=== PATIENT | female | born 1930 | race Caucasian/White ===

== ENCOUNTER 2018-05-29 15:29 | Emergency (ER) | payer MEDICARE ==
[2018-05-29 17:40] LABS: #Basophils 0.1 thou/uL (0.0-0.2); #Eosinphils 0.1 thou/uL (0.0-0.7); #Lymphocytes 1.5 thou/uL (1.20-3.40); #Monocytes 0.6 thou/uL (0.11-0.59); %Basophils 0.7 % (0.0-1.0); %Eosinophils 1.9 % (0.0-10.0); %Lymphocytes 20.2 % (21.0-51.0); %Monocytes 7.7 % (0.0-10.0); %Neutrophils 69.5 % (42.0-75.0); Hemoglobin 13.1 g/dL (12.0-16.0); Mean Corpuscular HGB CONC 33.6 g/dL (32.0-36.0); Mean Corpuscular Hemoglobin 32.4 pg (27.0-31.0); Mean Corpuscular Volume 96.5 fL (78.0-98.0); Mean Platelet Volume 8.4 fL (7.4-10.4); Platelet Count 203 thou/uL (130-400); RBC Distribution Width 11.7 % (11.5-14.5); Red Blood Cell (RBC) Count 4.04 mill/uL (4.20-5.40); White Blood Cell (WBC) Count 7.3 thou/uL (4.8-10.8)
[2018-05-29 18:10] LABS: ALT (SGPT) 16 U/L (8-55); AST (SGOT) 24 U/L (5-34); Albumin 3.9 g/dL (3.4-4.8); Alkaline Phosphatase 62 U/L (40-150); BUN (Urea Nitrogen) 32 mg/dL (9.8-20.1); Bilirubin, Total 0.3 mg/dL (0.2-1.2); Calc. Creatinine Clearance 0 mL/min (70-130); Calcium 9.7 mg/dL (7.8-10.44); Carbon Dioxide 25 mmol/L (23-31); Estimated GFR-MDRD 52; Globulin 2.9 g/dL (2.4-3.5); Glucose 115 mg/dL (83-110); Protein, Total 6.8 g/dL (6.0-8.3)
[2018-05-29 18:19] LABS: Anion Gap 14 mmol/L (10-20); Chloride 105 mmol/L (98-107); Potassium 4.2 mmol/L (3.5-5.1); Sodium 139 mmol/L (136-145)
[2018-05-29 19:27] LABS: Bilirubin Small (Negative); Blood, Urine Moderate (Negative); Clarity CLOUDY (Clear); Glucose, Urine (Dipstick) Negative (Negative); Leukocyte Large (Negative); Nitrite Negative (Negative); Protein, Urine (Dipstick) Trace mg/dL (Neg-Trace); Specific Gravity, Urine 1.027 (1.002-1.036); pH, Urine 5.5 (5.0-9.0)
[2018-05-29 19:28] LABS: Bacteria/HPF 3+ HPF (None Seen); Squamous Epithelial 0-3 HPF (0-3)
[2018-05-29] MEDS ORDERED: Lidocaine 1% PF 5 ML VIAL ONE (19:28)
[2018-05-29] MEDS ORDERED: cefTRIAXone\\ROCEPHIN 1 GM VIAL ONE (19:28)
[2018-05-29 19:31] LABS: Pathc Cast-AUWi Flag 10.32 (0-2.49)
[2018-05-29 19:32] LABS: Hyaline Casts/LPF 4-6 HYALINE CAST LPF (0-3 Hyaline); Manual Microscopic Reviewed? No Path Casts Seen
== END 2018-05-29 20:26 | disposition home or self-care (01) ==
LOC: ERS 15:29
DX: N30.00 Acute cystitis without hematuria (principal); K21.9 Gastro-esophageal reflux disease without esophagitis; F03.90 Unspecified dementia, unspecified severity, without behavioral disturbance, psychotic disturbance, mood disturbance, and anxiety; E03.9 Hypothyroidism, unspecified; E78.5 Hyperlipidemia, unspecified
CPT/HCPCS: 36415; 51701; 80053; 81003; 81015; 85025; 87077; 87086; 87186; 93005; 96372; A4353; J0696; J2001

== ENCOUNTER 2018-06-11 12:20 | Inpatient (IN) | payer MEDICARE ==
[2018-06-11 14:36] LABS: #Basophils 0.1 thou/uL (0.0-0.2); #Eosinphils 0.2 thou/uL (0.0-0.7); #Lymphocytes 1.5 thou/uL (1.20-3.40); #Monocytes 0.5 thou/uL (0.11-0.59); #Neutrophils 3.4 thou/uL (1.40-6.50); %Basophils 1.1 % (0.0-1.0); %Eosinophils 4.3 % (0.0-10.0); %Lymphocytes 26.5 % (21.0-51.0); %Monocytes 8.8 % (0.0-10.0); %Neutrophils 59.4 % (42.0-75.0); Hemoglobin 12.6 g/dL (12.0-16.0); Mean Corpuscular HGB CONC 32.5 g/dL (32.0-36.0); Mean Corpuscular Hemoglobin 31.2 pg (27.0-31.0); Mean Corpuscular Volume 96.1 fL (78.0-98.0); Mean Platelet Volume 8.8 fL (7.4-10.4); Platelet Count 196 thou/uL (130-400); RBC Distribution Width 11.7 % (11.5-14.5); Red Blood Cell (RBC) Count 4.04 mill/uL (4.20-5.40); White Blood Cell (WBC) Count 5.7 thou/uL (4.8-10.8)
[2018-06-11 14:59] LABS: ALT (SGPT) 16 U/L (8-55); AST (SGOT) 26 U/L (5-34); Albumin 3.8 g/dL (3.4-4.8); Alkaline Phosphatase 61 U/L (40-150); Anion Gap 14 mmol/L (10-20); BUN (Urea Nitrogen) 22 mg/dL (9.8-20.1); Bilirubin, Total 0.3 mg/dL (0.2-1.2); Calc. Creatinine Clearance 0 mL/min (70-130); Calcium 9.4 mg/dL (7.8-10.44); Carbon Dioxide 24 mmol/L (23-31); Chloride 107 mmol/L (98-107); Estimated GFR-MDRD 60; Globulin 2.9 g/dL (2.4-3.5); Glucose 105 mg/dL (83-110); Potassium 4.3 mmol/L (3.5-5.1); Protein, Total 6.7 g/dL (6.0-8.3); Sodium 141 mmol/L (136-145)
--- NOTE | 2018-06-11 15:08 | RAD ---
CHEST 1 VIEW: INDICATION: Chest pain. COMPARISON: None. FINDINGS: There is COPD change. There is mild cardiomegaly. No pleural effusion or pneumothorax is evident. No acute osseous abnormality is evident. IMPRESSION: Chronic change as above. No definite acute abnormality. POS: [facility]
[2018-06-11 18:27] LABS: Troponin I 0.012 ng/mL (< 0.028)
[2018-06-11] MEDS ORDERED: Senokot S 8.6-50 MG TAB PO PRN (19:28)
[2018-06-11] MEDS ORDERED: Ondansetron ODT 4 MG TAB PO PRN (19:28)
[2018-06-11] MEDS ORDERED: Acetaminophen 325 MG TAB PO PRN (19:28)
[2018-06-11] MEDS ORDERED: Ondansetron PF 4 MG/2 ML Vial IVP PRN (19:28)
[2018-06-11] MEDS ORDERED: Acetaminophen 650 MG Suppository PR PRN (19:28)
[2018-06-11 20:55] LABS: Troponin I Less than 0.010 ng/mL (< 0.028)
[2018-06-11] MEDS ORDERED: Famotidine 20 MG TAB ONE (20:58)
[2018-06-11 21:24] VITALS: BMI 24.1
[2018-06-11 23:43] LABS: Troponin I Less than 0.010 ng/mL (< 0.028)
[2018-06-11] MEDS ORDERED: traZODone HCl 50 MG TAB PO SCH (23:45)
[2018-06-11] MEDS ORDERED: Gabapentin 300 MG CAP PO SCH (23:45)
[2018-06-11] MEDS ORDERED: Donepezil HCl 10 MG TAB PO SCH (23:45)
--- NOTE | 2018-06-12 01:12 | HP ---
PRIMARY CARE PHYSICIAN: Xena Pickard MD CHIEF COMPLAINT: Increasing weakness and falls with slow heart rate. HISTORY OF PRESENT ILLNESS: This is an 88-year-old white female with no cardiac history, just history of hyperlipidemia, who presents to the emergency room from her doctor's office for a low heart rate. The patient has reported some increased weakness especially in her legs over the last year and has had increasing falls, but specifically worsened over the last couple of months. Her daughter, who is in the room with her stated that she seems to be falling a lot more and then over the last 2 weeks, this got significantly worse. The patient was brought to the emergency room for some dysuria, increasing weakness, and smelly urine. On May 29, she was diagnosed with urinary tract infection with Klebsiella and treated with Levaquin. She had resolution of all her symptoms except for her weakness that has been persistent. The patient had another fall last night. She was trying to sit on the side of her bed and her legs gave out on her and she fell to the side. She says she usually tries to roll off to the side when she falls. She did not hit her head and has no injuries from this. When she went to her primary care doctor's office, they noted her heart rate in the 40s. She has had heart rate that has been low in the 60s previously per the primary care doctor, but has never gotten that low before, so she was sent to the emergency room. In the emergency room, she has been running anywhere between the low 40s to low 60s. Her EKG showed sinus bradycardia with sinus arrhythmia and complete right bundle branch block. The patient's other vital signs have been stable. PAST MEDICAL HISTORY: 1. Hyperlipidemia. 2. Hypothyroidism. 3. Gastroesophageal reflux disease. PAST SURGICAL HISTORY: 1. Hysterectomy. 2. Cataract surgery. 3. Surgery for detached retina. PSYCHIATRIC HISTORY: None. SOCIAL HISTORY: No tobacco, alcohol, or illicit drug use. The patient is a . She currently lives with her daughter, who is present in the room with her and is her power of community marketing manager. The patient does not have any personal history of dementia but due to a strong family history, at her request, started taking Aricept and Namenda in her 50s and has been taking them ever since. The patient has 6 children. FAMILY HISTORY: Virtually every one in her family has had Alzheimer's, except her. No significant cardiac disease in her family. ALLERGIES: NO KNOWN DRUG ALLERGIES. CURRENT MEDICATIONS: 1. Plavix 75 mg daily. She states this was given to her for prevention of problems in her brain. Denies any history of stroke, TIA, or peripheral vascular disease. 2. Venlafaxine 75 mg daily. 3. Protonix 40 mg daily. 4. Donepezil 20 mg each morning. 5. Gabapentin 600 mg each morning. 6. Simvastatin 10 mg daily. 7. Amantadine, unknown dose twice a day. 8. Levothyroxine 75 mcg daily. 9. Trazodone 75 mg at nighttime before bed. REVIEW OF SYSTEMS: CONSTITUTIONAL: No fevers. No chills. No weight changes. EYES: She has chronic poor vision, but no significant changes recently except that she has lost her glasses and had to use an older pair and so she is a little more blurry than normal. ENT: No congestion, drainage or sore throat. CARDIOVASCULAR: No chest pain. No palpitations or racing heart. PULMONARY: No coughing, wheezing or shortness of breath. GASTROINTESTINAL: No abdominal pain. No nausea or vomiting. No diarrhea. She does have some chronic constipation and has to take MiraLAX intermittently to keep it moving. GENITOURINARY: See HPI. No current dysuria or hematuria. MUSCULOSKELETAL: She has bad knees and wears knee braces regularly, and has had weakness in her bilateral legs, worsened over the last couple of months. Sometimes when she sits down, she is not able to stand back up from the toilet, though typically she is not able to do that and has increasingly frequent falls. SKIN: No rashes or lesions. NEUROLOGIC: No numbness, tingling, or focal weakness. PSYCHIATRIC: No depression or anxiety. PHYSICAL EXAMINATION: VITAL SIGNS: Blood pressure 119/65, pulse 52, respirations 15, temperature 98.6, O2 saturation 98% on room air. GENERAL: This is a well-developed elderly white female, in no acute distress. HEENT: Left pupil is 3 mm, round and reactive to light. Right pupil is about 5 mm, irregular and is not reactive to light. Oropharynx clear without lesions, erythema, or exudate. NECK: Supple. No lymphadenopathy. No thyroid nodules or enlargement. No JVD. HEART: Regular rhythm. Mildly bradycardic on my exam. No murmurs, rubs, or gallops. LUNGS: Clear to auscultation bilaterally. No wheezes, crackles, or rhonchi. ABDOMEN: Soft, nontender to palpation. Normoactive bowel sounds. No hepatosplenomegaly or other masses. EXTREMITIES: No clubbing, cyanosis, or edema. SKIN: No rashes or lesions noted. NEUROLOGIC: She has 5/5 strength in bilateral upper extremities and fairly decent strength that is equal bilaterally in the lower extremities. Deep tendon reflexes are 2+ in all extremities. No facial droop. PSYCHIATRIC: She is alert and oriented x3. Normal mood and affect. There is a mention of dementia in the chart, I believe that is because of the medications she is on. She is actually quite sharp, cannot remember exactly the exact date she was here the last in the ER and the date today and gave detailed history about things that have been going on. She is also always eager to argue politics with anybody who is available. DIAGNOSTIC DATA: I reviewed the EKG done in the emergency room. It does show sinus bradycardia with a sinus arrhythmia at 45 beats per minute. No significant ST-segment changes as there is incomplete right bundle branch block. LABORATORY DATA: CBC grossly within normal limits. Complete metabolic panel is grossly normal as well. Troponins negative x2. TSH is normal. Chest x-ray, I did review the chest x-ray done in the emergency room along with the radiologist's report. It does report some mild COPD type changes and some mild cardiomegaly, something of a soft call and no acute abnormalities visualized. ASSESSMENT: 1. Bradycardia, uncertain if this is causing any of her symptoms or not. Currently, it is occasionally dropping down fairly low, but I think it is coming back up into the 50s and 60s. We will get an echocardiogram, watch on lunchroom monitor overnight. We will have Cardiology evaluate her as this might be causing her overall problems. 2. Recurrent falls likely related to progressive physical decline with her age and with her bad knees. I do want to check orthostatic vital signs and see if her blood pressure is dropping when she stands up and see if she has problems mostly when she is going from standing to sitting or sitting to standing. 3. Progressive physical decline with weakness in the lower extremities. We will have Physical Therapy evaluate and will do a rehabilitation consult. 4. Recent urinary tract infection. We will recheck UA and make sure that this clears completely. 5. Hypothyroidism, currently well controlled. Resume home medications. 6. Strong family history of dementia. We will resume her Aricept and Namenda. 7. Gastrointestinal prophylaxis. We will continue patient's Protonix. 8. Code status. I did discuss this with the patient. She is a full code. Should she be incapacitated, her daughter would be her medical decision maker. Her daughter's name is Shelly Díaz. Job ID: [id number]
[2018-06-12 03:10] LABS: #Eosinphils 0.3 thou/uL (0.0-0.7); #Lymphocytes 1.3 thou/uL (1.20-3.40); #Monocytes 0.5 thou/uL (0.11-0.59); %Basophils 0.8 % (0.0-1.0); %Eosinophils 4.9 % (0.0-10.0); %Lymphocytes 24.8 % (21.0-51.0); %Monocytes 10.7 % (0.0-10.0); %Neutrophils 58.8 % (42.0-75.0); Hemoglobin 12.1 g/dL (12.0-16.0); Mean Corpuscular HGB CONC 33.2 g/dL (32.0-36.0); Mean Corpuscular Hemoglobin 32.8 pg (27.0-31.0); Mean Corpuscular Volume 98.9 fL (78.0-98.0); Mean Platelet Volume 8.9 fL (7.4-10.4); Platelet Count 190 thou/uL (130-400); RBC Distribution Width 11.7 % (11.5-14.5); Red Blood Cell (RBC) Count 3.69 mill/uL (4.20-5.40); White Blood Cell (WBC) Count 5.1 thou/uL (4.8-10.8)
[2018-06-12 03:28] LABS: Anion Gap 11 mmol/L (10-20); BUN (Urea Nitrogen) 18 mg/dL (9.8-20.1); Calc. Creatinine Clearance 45 mL/min (70-130); Calcium 9.1 mg/dL (7.8-10.44); Carbon Dioxide 30 mmol/L (23-31); Chloride 105 mmol/L (98-107); Estimated GFR-MDRD 60; Glucose 108 mg/dL (83-110); Potassium 4.6 mmol/L (3.5-5.1); Sodium 141 mmol/L (136-145)
[2018-06-12] MEDS: Famotidine 20 MG TAB PO SCH ×3 (08:57→22:12)
[2018-06-12] MEDS: Donepezil HCl 10 MG TAB PO SCH ×2 (12:03→20:55)
[2018-06-12] MEDS: Enoxaparin Sodium 40 MG/0.4 ML SYRINGE SC SCH (12:04)
--- NOTE | 2018-06-12 12:34 | PDOC.PN ---
- Subjective Encounter Start Date: 06/12/18 Encounter Start Time: 10:40 Subjective: Patient continues to feel weak. Occ cough in morning, asking for cough -: medicine. Hear rate in high 40s-50s this morning. - Objective Resuscitation Status - Order Detail: 06/11/18 18:18 Resuscitation Status Routine Resuscitation Status: FULL: Full Resuscitation Discussed with: Maria Ines GAMBOA Reviewed: Yes Vital Signs & Weight: Vital Signs (12 hours) Temp Pulse Pulse Pulse Resp BP BP 06/12/18 12:16 98.1 F 50 L 21 H 06/12/18 10:09 50 L 54 L 149/71 H 142/81 H 06/12/18 04:00 98.6 F 58 L 16 BP Pulse Ox Pulse Ox Pulse Ox 06/12/18 12:16 143/71 H 99 06/12/18 10:09 99 98 06/12/18 04:00 111/66 96 Weight Weight 145 lb Result Diagrams: 06/11/18 23:15 06/11/18 23:15 Phys Exam - Physical Examination Constitutional: NAD HEENT: moist MMs Respiratory: no wheezing, no rales, no rhonchi Cardiovascular: no significant murmur bradycardia Gastrointestinal: soft, positive bowel sounds Neurological: non-focal, moves all 4 limbs Psychiatric: normal affect, A&O x 3 Dx/Plan (1) Bradycardia Code(s): R00.1 - BRADYCARDIA, UNSPECIFIED Status: Acute (2) Recurrent falls Code(s): R29.6 - REPEATED FALLS Status: Acute (3) Lower extremity weakness Code(s): R29.898 - OTH SYMPTOMS AND SIGNS INVOLVING THE MUSCULOSKELETAL SYSTEM Status: Acute Qualifiers: Laterality: bilateral Qualified Code(s): R29.898 - Other symptoms and signs involving the musculoskeletal system Comment: worsening over 1 year (4) Hypothyroidism Code(s): E03.9 - HYPOTHYROIDISM, UNSPECIFIED Status: Chronic - Plan cont current plan of care, PT/OT, DVT proph w/lovenox, DVT proph w/SCDs Cardiology consulted * . - Discharge Day Encounter end time: 10:50
[2018-06-12 17:18] LABS: Troponin I 0.013 ng/mL (< 0.028)
--- NOTE | 2018-06-12 20:50 | CON ---
DATE OF CONSULTATION: REFERRING PHYSICIAN: Dr. Jose Luis Pike. PRIMARY CARE PHYSICIAN: Dr. Xena Pickard. REASON FOR CONSULTATION: Bradycardia with associated weakness. HISTORY OF PRESENT ILLNESS: Ms. Reyes is a very pleasant 88-year-old old female who was at her primary care provider when she was found to have a bradycardic rhythm with heart rates in the 40s. She had had noticeable weakness, which had been more pronounced over the past two weeks resulting with her sliding to the floor. She has not had any syncopal episodes associated with this. She is not on any medications that would cause pronounced bradycardia. She does have a history of thyroid disease and is on levothyroxine. Few weeks ago, she was diagnosed with UTI with Klebsiella and was treated with Levaquin. When she was found to have her heart rate in the 40s, her primary care provider sent her to the emergency room for her bradycardia. Since being monitored in the emergency room, she was found to have bradycardic rhythms between 40 and 60 beats per minute, as well as sinus arrhythmia. Otherwise, she has remained hemodynamically stable with stable blood pressures. PAST MEDICAL HISTORY: 1. Hyperlipidemia. 2. Hypothyroidism. 3. Gastroesophageal reflux disease. 4. Hypothyroidism. SOCIAL HISTORY: Negative for tobacco, alcohol, or drug use. She is a , lives with her daughter. Good social support. FAMILY HISTORY: Strong for Alzheimer's dementia. Negative for sudden cardiac . ALLERGIES: NO KNOWN DRUG ALLERGIES. MEDICATIONS: 1. Plavix 75 mg daily (reportedly a preventative measure for Alzheimer's dementia). 2. venlafaxine 75 mg daily. 3. Protonix 40 mg daily. 4. Donepezil 20 mg q.a.m. 5. Gabapentin 600 mg q.a.m. 6. Simvastatin 10 mg daily. 7. Amantadine b.i.d. 8. Levothyroxine 75 mcg daily. 9. Trazodone 75 mg at bedtime. REVIEW OF SYSTEMS: A 12-point review of systems was conducted, it was positive for weakness, recent falls that have been progressive in nature. Otherwise is negative and as per HPI. PHYSICAL EXAMINATION: VITAL SIGNS: Most recent vital signs 98.2, pulse 50, blood pressure is 139/67, respirations 16, oxygen is 98% on room air. GENERAL: The patient is alert and oriented. Speech is clear. Affect is appropriate. She is resting comfortably while lying recumbent in bed. She is normocephalic and atraumatic. Sclerae anicteric. EOMs are intact. Oral mucosa is moist and pink with adequate dentition. NECK: Supple without jugular venous distention. Thyroid is nonpalpable. LUNGS: Clear to auscultation bilaterally. HEART: Rate is regularly regular, but slow. PMI is nondisplaced. ABDOMEN: Soft, nontender without palpable masses. Hepatojugular reflux is negative. NEUROLOGIC: Grossly intact. Nonfocal. EXTREMITIES: Warm and dry to touch without clubbing, cyanosis, or edema. Gait was not assessed. DATABASE: EKG and telemetry were all personally reviewed and reflect sinus bradycardia and sinus arrhythmia with a bifascicular block. LABORATORY DATA: Hematology was reviewed: WBC 5.1, hemoglobin 12.1, platelet count is 190. Chemistry: Potassium 4.6, BUN 18, creatinine 0.89. Serial troponins were negative. TSH is 1.12. IMPRESSION: 1. Sinus node dysfunction, symptomatic. 2. Recurrent falls, possibly also associated with orthostasis. 3. Recent urinary tract infection. 4. Hypothyroidism. Thyroid stimulating hormone within normal limits. RECOMMENDATIONS: Given her pronounced bradycardia and associated weakness and also her bifascicular block on EKG, our recommendation is for a dual-chamber permanent pacemaker implantation. At the moment, she is stable. Her blood pressures have remained stable in spite of her bradycardia. This is discussed with the patient and her daughter, who were both in full agreement. I will keep her n.p.o. on Friday and schedule her for implant that day. We discussed risks, benefits, and alternatives. Risks include pain, swelling, bruising, infection, pneumothorax and pericardial effusion as well as possible need for chest tube insertion to remove either air from the pleural line or blood from the pericardial sac. The patient voices understanding and wishes to proceed on Friday as mentioned above. Job ID: [id number]
[2018-06-12] MEDS: Atorvastatin Calcium 10 MG TAB PO SCH (20:55)
[2018-06-12] MEDS: guaiFENesin ER 600 MG TAB PO SCH (20:55)
[2018-06-12] MEDS: Gabapentin 300 MG CAP PO SCH (20:55)
[2018-06-12] MEDS ORDERED: traZODone HCl 50 MG TAB PO SCH (21:00)
--- NOTE | 2018-06-13 03:05 | CON ---
DATE OF CONSULTATION: HISTORY OF PRESENT ILLNESS: The patient is a pleasant 88-year-old woman who was admitted with weakness and noted to have a slow heart rate. The patient has a long history of bradycardia. She states she has had this for many years. The patient has had episodes of weakness. She denies having any loss of consciousness. The patient went to see her primary doctor because her knees were bothering and she felt increasing weakness. She was noted to have a slow heart rate and sent for further evaluation. The patient denies having any chest discomfort. PAST MEDICAL HISTORY: 1. Dementia. 2. Depression. 3. Hypothyroidism. 4. GE reflux. PAST SURGICAL HISTORY: Eye surgery and hysterectomy. SOCIAL HISTORY: Nonsmoker. MEDICATIONS: See nursing list. FAMILY HISTORY: No strong family history of heart disease. REVIEW OF SYSTEMS: Ten point system otherwise unremarkable. PHYSICAL EXAMINATION: GENERAL: This is a well-developed woman in no acute distress. VITAL SIGNS: Blood pressure of 111/66. NECK: No jugular venous distention. LUNGS: Clear to auscultation. HEART: Regular rate and rhythm. Normal S1, S2. No murmurs. ABDOMEN: Nondistended. EXTREMITIES: Show no edema. VASCULAR: Radial pulses 2+. LABORATORY DATA: Sodium 141, potassium 4.6, chloride 105, bicarb 30, BUN 18, creatinine 0.89. Troponin less than 0.01. White blood cell count 5.1, hemoglobin 12.1, hematocrit 36.5, and platelets 190. Her EKG revealed marked sinus bradycardia with a right bundle branch block. IMPRESSION: 1. Bradycardia. 2. History of cerebrovascular disease. 3. Depression. This patient presents with bradycardia. It is unclear whether she is really symptomatic. We will ask EP to evaluate. We will check the patient's echocardiogram and follow this patient with you through her hospitalization. Job ID: [id number] [facility]
[2018-06-13] MEDS: Enoxaparin Sodium 40 MG/0.4 ML SYRINGE SC SCH (09:05)
[2018-06-13] MEDS: Famotidine 20 MG TAB PO SCH ×2 (09:05→20:28)
[2018-06-13] MEDS: guaiFENesin ER 600 MG TAB PO SCH ×2 (09:05→20:27)
[2018-06-13] MEDS: Donepezil HCl 10 MG TAB PO SCH ×2 (09:05→20:27)
[2018-06-13] MEDS: Clopidogrel Bisulfate 75 MG TAB PO SCH (09:05)
[2018-06-13] MEDS ORDERED: Atropine Sulfate 1 mg/1 ml Vial IVP PRN (11:16)
[2018-06-13 15:24] LABS: Bilirubin Negative (Negative); Blood, Urine Negative (Negative); Clarity CLEAR (Clear); Glucose, Urine (Dipstick) Negative (Negative); Leukocyte Negative (Negative); Nitrite Negative (Negative); Protein, Urine (Dipstick) Negative (Neg-Trace); Specific Gravity, Urine 1.014 (1.002-1.036); Urobilinogen 0.2 mg/dL (0.2-1.0); pH, Urine 7.5 (5.0-9.0)
--- NOTE | 2018-06-13 16:42 | PDOC.PN ---
- Subjective Encounter Start Date: 06/13/18 Encounter Start Time: 10:45 Patient seen and examined for symptomatic bradycardia. No new complaints. No overnight events - Objective Resuscitation Status - Order Detail: 06/11/18 18:18 Resuscitation Status Routine Resuscitation Status: FULL: Full Resuscitation Discussed with: Patient COOPER Reviewed: Yes Vital Signs & Weight: Vital Signs (12 hours) Temp Pulse Resp BP Pulse Ox 06/13/18 16:05 97.4 F L 49 L 16 115/57 L 100 06/13/18 12:00 49 L 16 133/64 99 06/13/18 07:36 96.9 F L 50 L 16 130/61 96 Weight Weight 145 lb I&O: 06/12/18 06/13/18 06/14/18 06:59 06:59 06:59 Intake Total 480 Output Total 1 Balance 480 -1 Result Diagrams: 06/11/18 23:15 06/11/18 23:15 EKG Reviewed by me: Yes (Tele SB) Phys Exam - Physical Examination Constitutional: NAD (Somnolent) Respiratory: no wheezing, no rhonchi Cardiovascular: RRR, no rub Gastrointestinal: soft, no distention Musculoskeletal: no edema Neurological: moves all 4 limbs Dx/Plan (1) Symptomatic bradycardia Code(s): R00.1 - BRADYCARDIA, UNSPECIFIED Status: Acute (2) General weakness Code(s): R53.1 - WEAKNESS Status: Acute (3) Recurrent falls Code(s): R29.6 - REPEATED FALLS Status: Acute (4) CKD (chronic kidney disease) stage 2, GFR 60-89 ml/min Code(s): N18.2 - CHRONIC KIDNEY DISEASE, STAGE 2 (MILD) Status: Chronic (5) Hypothyroidism Code(s): E03.9 - HYPOTHYROIDISM, UNSPECIFIED Status: Chronic - Plan cont current plan of care, DVT proph w/lovenox, DVT proph w/SCDs Resume Levothyroxine -: Cont other meds as below -: Cardiology following Review of Systems - Review of Systems Cardiovascular: negative: chest pain, palpitations, orthopnea, paroxysmal nocturnal dyspnea, edema, light headedness, other Gastrointestinal: negative: Nausea, Vomiting, Abdominal Pain, Diarrhea, Constipation, Melena, Hematochezia, Other - Medications/Allergies Allergies/Adverse Reactions: Allergies Allergy/AdvReac Type Severity Reaction Status Date / Time No Known Drug Allergies Allergy Verified 06/11/18 21:17 Medications: Current Medications Acetaminophen (Tylenol) 650 mg PO Q4H PRN PRN Reason: Headache/Fever/Mild Pain (1-3) Acetaminophen (Tylenol) 650 mg IA Q4H PRN PRN Reason: Headache/Fever/Mild Pain (1-3) Atorvastatin Calcium (Lipitor) 10 mg PO HS [facility] Last Admin: 06/12/18 20:55 Dose: 10 mg Atropine Sulfate (Atropine) 0.5 mg IVP ASDIR PRN PRN Reason: Sustained Bradycardia HR < 30 Clopidogrel Bisulfate (Plavix) 75 mg PO DAILY [facility] Last Admin: 06/13/18 09:05 Dose: 75 mg Donepezil HCl (Aricept) 10 mg PO BID [facility] Last Admin: 06/13/18 09:05 Dose: 10 mg Enoxaparin Sodium (Lovenox) 40 mg SC 0900 [facility] Last Admin: 06/13/18 09:05 Dose: 40 mg Famotidine (Pepcid) 20 mg PO BID [facility] Last Admin: 06/13/18 09:05 Dose: 20 mg Gabapentin (Neurontin) 600 mg PO HS [facility] Last Admin: 06/12/18 20:55 Dose: 600 mg Guaifenesin (Mucinex) 600 mg PO Q12HR [facility] Last Admin: 06/13/18 09:05 Dose: 600 mg Levothyroxine Sodium (Synthroid) 75 mcg PO 0600 [facility] Ondansetron HCl (Zofran Odt) 4 mg PO Q6H PRN PRN Reason: Nausea/Vomiting Ondansetron HCl (Zofran) 4 mg IVP Q6H PRN PRN Reason: Nausea/Vomiting Senna/Docusate Sodium (Senokot S) 2 tab PO BIDPRN PRN PRN Reason: Constipation Sodium Chloride (Flush - Normal Saline) 10 ml IVF Q12HR [facility] Last Admin: 06/13/18 09:06 Dose: 10 ml Sodium Chloride (Flush - Normal Saline) 10 ml IVF PRN PRN PRN Reason: Saline Flush
[2018-06-13] MEDS: Atorvastatin Calcium 10 MG TAB PO SCH (20:27)
[2018-06-13] MEDS: Gabapentin 300 MG CAP PO SCH (20:27)
[2018-06-13] MEDS: Artificial Tears 18 DROP/0.9 ML EA EYE PRN (20:39)
[2018-06-14] MEDS: Levothyroxine Sodium 75 MCG TAB PO SCH (06:07)
[2018-06-14] MEDS: Donepezil HCl 10 MG TAB PO SCH ×2 (09:00→21:30)
[2018-06-14] MEDS: Clopidogrel Bisulfate 75 MG TAB PO SCH (09:00)
[2018-06-14] MEDS: Famotidine 20 MG TAB PO SCH ×2 (09:00→21:30)
[2018-06-14] MEDS: Enoxaparin Sodium 40 MG/0.4 ML SYRINGE SC SCH (09:00)
[2018-06-14] MEDS: guaiFENesin ER 600 MG TAB PO SCH ×2 (09:01→21:30)
--- NOTE | 2018-06-14 12:41 | PDOC.PN ---
- Subjective Encounter Start Date: 06/14/18 Encounter Start Time: 12:00 Patient seen and examined for bradycardia. No new complaints. No overnight events - Objective Resuscitation Status - Order Detail: 06/11/18 18:18 Resuscitation Status Routine Resuscitation Status: FULL: Full Resuscitation Discussed with: Patient COOPER Reviewed: Yes Vital Signs & Weight: Vital Signs (12 hours) Temp Pulse Resp BP Pulse Ox 06/14/18 08:57 97.7 F 47 L 16 131/65 100 06/14/18 08:20 100 06/14/18 04:12 97.9 F 65 17 135/71 100 Weight Weight 169 lb I&O: 06/13/18 06/14/18 06/15/18 06:59 06:59 06:59 Intake Total 480 1520 Output Total 301 Balance 480 1219 Result Diagrams: 06/11/18 23:15 06/11/18 23:15 EKG Reviewed by me: Yes (Tele SB) Phys Exam - Physical Examination Constitutional: NAD Respiratory: no wheezing, no rhonchi Cardiovascular: RRR, no rub Gastrointestinal: soft, non-tender, positive bowel sounds Musculoskeletal: no edema Neurological: moves all 4 limbs Dx/Plan (1) Symptomatic bradycardia Code(s): R00.1 - BRADYCARDIA, UNSPECIFIED Status: Acute (2) General weakness Code(s): R53.1 - WEAKNESS Status: Acute (3) Recurrent falls Code(s): R29.6 - REPEATED FALLS Status: Acute (4) CKD (chronic kidney disease) stage 2, GFR 60-89 ml/min Code(s): N18.2 - CHRONIC KIDNEY DISEASE, STAGE 2 (MILD) Status: Chronic (5) Hypothyroidism Code(s): E03.9 - HYPOTHYROIDISM, UNSPECIFIED Status: Chronic - Plan cont current plan of care, PT/OT, DVT proph w/SCDs NPO for Permanent Pacemaker in AM -: Cont to monitor -: Cont current meds as below -: AM labs Review of Systems - Review of Systems Respiratory: negative: Cough, Dry, Shortness of Breath, Hemoptysis, SOB with Excertion, Pleuritic Pain, Sputum, Wheezing Cardiovascular: negative: chest pain, palpitations, orthopnea, paroxysmal nocturnal dyspnea, edema, light headedness, other - Medications/Allergies Allergies/Adverse Reactions: Allergies Allergy/AdvReac Type Severity Reaction Status Date / Time No Known Drug Allergies Allergy Verified 06/11/18 21:17 Medications: Current Medications Acetaminophen (Tylenol) 650 mg PO Q4H PRN PRN Reason: Headache/Fever/Mild Pain (1-3) Acetaminophen (Tylenol) 650 mg MO Q4H PRN PRN Reason: Headache/Fever/Mild Pain (1-3) Artificial Tears (Tears Naturale) 0 drop EA EYE PRN PRN PRN Reason: Dry Eyes Last Admin: 06/13/18 20:39 Dose: 1 drop Atorvastatin Calcium (Lipitor) 10 mg PO HS [facility] Last Admin: 06/13/18 20:27 Dose: 10 mg Atropine Sulfate (Atropine) 0.5 mg IVP ASDIR PRN PRN Reason: Sustained Bradycardia HR < 30 Clopidogrel Bisulfate (Plavix) 75 mg PO DAILY [facility] Last Admin: 06/14/18 09:00 Dose: 75 mg Donepezil HCl (Aricept) 10 mg PO BID [facility] Last Admin: 06/14/18 09:00 Dose: 10 mg Enoxaparin Sodium (Lovenox) 40 mg SC 0900 [facility] Last Admin: 06/14/18 09:00 Dose: 40 mg Famotidine (Pepcid) 20 mg PO BID [facility] Last Admin: 06/14/18 09:00 Dose: 20 mg Gabapentin (Neurontin) 600 mg PO HS [facility] Last Admin: 06/13/18 20:27 Dose: 600 mg Guaifenesin (Mucinex) 600 mg PO Q12HR [facility] Last Admin: 06/14/18 09:01 Dose: 600 mg Levothyroxine Sodium (Synthroid) 75 mcg PO 0600 [facility] Last Admin: 06/14/18 06:07 Dose: 75 mcg Ondansetron HCl (Zofran Odt) 4 mg PO Q6H PRN PRN Reason: Nausea/Vomiting Ondansetron HCl (Zofran) 4 mg IVP Q6H PRN PRN Reason: Nausea/Vomiting Senna/Docusate Sodium (Senokot S) 2 tab PO BIDPRN PRN PRN Reason: Constipation Last Admin: 06/13/18 20:33 Dose: 2 tab Sodium Chloride (Flush - Normal Saline) 10 ml IVF Q12HR [facility] Last Admin: 06/14/18 09:01 Dose: 10 ml Sodium Chloride (Flush - Normal Saline) 10 ml IVF PRN PRN PRN Reason: Saline Flush
[2018-06-14] MEDS: Artificial Tears 18 DROP/0.9 ML EA EYE PRN (12:59)
[2018-06-14] MEDS: Gabapentin 300 MG CAP PO SCH (21:30)
[2018-06-14] MEDS: Atorvastatin Calcium 10 MG TAB PO SCH (21:30)
[2018-06-15] MEDS ORDERED: CEFAZOLIN 2 GM/50 ML-DEXTROSE 2 GM in Premix Bag 1 BAG IVPB SCH ×2 (05:30→08:00)
[2018-06-15] MEDS ORDERED: CEFAZOLIN 2 GM/50 ML BAG ONE (06:34)
[2018-06-15] MEDS ORDERED: Midazolam HCl 2 mg/2 ml Vial ONE (08:13)
[2018-06-15] MEDS ORDERED: Fentanyl 100 MCG/2 ML VIAL ONE (08:14)
[2018-06-15] MEDS ORDERED: Naloxone HCl 0.4 mg/ml Vial ONE (08:14)
[2018-06-15] MEDS: Levothyroxine Sodium 75 MCG TAB PO SCH (08:26)
[2018-06-15] MEDS ORDERED: Acetaminophen/Codeine 30-300mg Tablet PO PRN (09:54)
[2018-06-15] MEDS ORDERED: Cephalexin 250 MG CAP PO SCH (10:00)
[2018-06-15] MEDS: Clopidogrel Bisulfate 75 MG TAB PO SCH (10:15)
[2018-06-15] MEDS: Donepezil HCl 10 MG TAB PO SCH ×2 (10:15→19:59)
[2018-06-15] MEDS: Famotidine 20 MG TAB PO SCH ×2 (10:15→19:59)
[2018-06-15] MEDS: guaiFENesin ER 600 MG TAB PO SCH ×2 (10:15→19:59)
[2018-06-15] MEDS: Enoxaparin Sodium 40 MG/0.4 ML SYRINGE SC SCH (10:15)
--- NOTE | 2018-06-15 11:08 | RAD ---
PORTABLE AP CHEST RADIOGRAPH: Date: 06-15-18 History: Post cardiac device placement. Comparison: 06-11-18 FINDINGS: There has been interval placement of a dual-lead left subclavian cardiac pacemaking device with RA an d RV leads. No pneumothorax is seen. Mild chronic lung changes are again seen. Cardiac silhouette is magnified by projection. Pulmonary vasculature is within normal limits. Vascular calcifications are s een in an ectatic thoracic aorta. There is osteopenia. There has been no other interval change from p rior study. IMPRESSION: Interval placement of dual-lead left subclavian cardiac pacemaking device without evidence of a pneum othorax. POS: [facility]
[2018-06-15] MEDS: Cephalexin 250 MG CAP PO SCH ×2 (14:48→19:58)
[2018-06-15] MEDS: Artificial Tears 18 DROP/0.9 ML EA EYE PRN (14:49)
[2018-06-15] MEDS ORDERED: Iopamidol 370 76% 50 ML VIAL FS ONE (15:06)
[2018-06-15] MEDS: Gabapentin 300 MG CAP PO SCH (19:58)
[2018-06-15] MEDS: Atorvastatin Calcium 10 MG TAB PO SCH (19:59)
--- NOTE | 2018-06-15 20:20 | PDOC.PN ---
- Subjective Encounter Start Date: 06/15/18 Encounter Start Time: 15:30 Patient seen and examined for symptomatic pacemaker. s/p pacemaker. No new complaints. No overnight events - Objective Resuscitation Status - Order Detail: 06/11/18 18:18 Resuscitation Status Routine Resuscitation Status: FULL: Full Resuscitation Discussed with: Patient COOPER Reviewed: Yes Vital Signs & Weight: Vital Signs (12 hours) Temp Pulse Resp BP Pulse Ox 06/15/18 16:22 98.3 F 61 16 147/69 H 100 06/15/18 11:28 98.0 F 61 18 139/69 95 06/15/18 09:50 95 Weight Weight 169 lb I&O: 06/14/18 06/15/18 06/16/18 06:59 06:59 06:59 Intake Total 1520 1100 Output Total 301 1750 250 Balance 1219 -650 -250 Result Diagrams: 06/15/18 20:05 06/15/18 20:05 EKG Reviewed by me: Yes (Tele paced) Phys Exam - Physical Examination Constitutional: NAD Respiratory: no wheezing, no rhonchi Cardiovascular: RRR, no rub Gastrointestinal: soft, non-tender, positive bowel sounds Musculoskeletal: no edema Neurological: moves all 4 limbs Dx/Plan (1) Symptomatic bradycardia Code(s): R00.1 - BRADYCARDIA, UNSPECIFIED Status: Acute Comment: s/p pacemaker (2) General weakness Code(s): R53.1 - WEAKNESS Status: Acute (3) Recurrent falls Code(s): R29.6 - REPEATED FALLS Status: Acute (4) CKD (chronic kidney disease) stage 2, GFR 60-89 ml/min Code(s): N18.2 - CHRONIC KIDNEY DISEASE, STAGE 2 (MILD) Status: Chronic (5) Hypothyroidism Code(s): E03.9 - HYPOTHYROIDISM, UNSPECIFIED Status: Chronic - Plan cont current plan of care, plan discussed w/ family, DVT proph w/SCDs Await placement -: Cont current meds as below Review of Systems - Review of Systems Respiratory: negative: Cough, Dry, Shortness of Breath, Hemoptysis, SOB with Excertion, Pleuritic Pain, Sputum, Wheezing Cardiovascular: negative: chest pain, palpitations, orthopnea, paroxysmal nocturnal dyspnea, edema, light headedness, other - Medications/Allergies Allergies/Adverse Reactions: Allergies Allergy/AdvReac Type Severity Reaction Status Date / Time No Known Drug Allergies Allergy Verified 06/11/18 21:17 Medications: Current Medications Acetaminophen (Tylenol) 650 mg PO Q4H PRN PRN Reason: Headache/Fever/Mild Pain (1-3) Acetaminophen (Tylenol) 650 mg CO Q4H PRN PRN Reason: Headache/Fever/Mild Pain (1-3) Acetaminophen/Codeine Phosphate (Tylenol #3) 1 tab PO Q6H PRN PRN Reason: Pain Artificial Tears (Tears Naturale) 0 drop EA EYE PRN PRN PRN Reason: Dry Eyes Last Admin: 06/15/18 14:49 Dose: 20 drop Atorvastatin Calcium (Lipitor) 10 mg PO HS [facility] Last Admin: 06/15/18 19:59 Dose: 10 mg Atropine Sulfate (Atropine) 0.5 mg IVP ASDIR PRN PRN Reason: Sustained Bradycardia HR < 30 Cephalexin (Keflex) 500 mg PO TID [facility] Stop: 06/22/18 15:01 Last Admin: 06/15/18 19:58 Dose: 500 mg Clopidogrel Bisulfate (Plavix) 75 mg PO DAILY [facility] Last Admin: 06/15/18 10:15 Dose: 75 mg Donepezil HCl (Aricept) 10 mg PO BID [facility] Last Admin: 06/15/18 19:59 Dose: 10 mg Enoxaparin Sodium (Lovenox) 40 mg SC 0900 [facility] Last Admin: 06/15/18 10:15 Dose: 40 mg Famotidine (Pepcid) 20 mg PO BID [facility] Last Admin: 06/15/18 19:59 Dose: 20 mg Gabapentin (Neurontin) 600 mg PO HS [facility] Last Admin: 06/15/18 19:58 Dose: 600 mg Guaifenesin (Mucinex) 600 mg PO Q12HR [facility] Last Admin: 06/15/18 19:59 Dose: 600 mg Levothyroxine Sodium (Synthroid) 75 mcg PO 0600 [facility] Last Admin: 06/15/18 08:26 Dose: Not Given Ondansetron HCl (Zofran Odt) 4 mg PO Q6H PRN PRN Reason: Nausea/Vomiting Ondansetron HCl (Zofran) 4 mg IVP Q6H PRN PRN Reason: Nausea/Vomiting Senna/Docusate Sodium (Senokot S) 2 tab PO BIDPRN PRN PRN Reason: Constipation Last Admin: 06/13/18 20:33 Dose: 2 tab Sodium Chloride (Flush - Normal Saline) 10 ml IVF Q12HR [facility] Last Admin: 06/15/18 19:59 Dose: 10 ml Sodium Chloride (Flush - Normal Saline) 10 ml IVF PRN PRN PRN Reason: Saline Flush
[2018-06-15 20:57] LABS: #Eosinphils 0.2 thou/uL (0.0-0.7); #Lymphocytes 1.4 thou/uL (1.20-3.40); #Monocytes 0.9 thou/uL (0.11-0.59); %Basophils 0.4 % (0.0-1.0); %Eosinophils 1.9 % (0.0-10.0); %Lymphocytes 16.4 % (21.0-51.0); %Monocytes 10.3 % (0.0-10.0); Hemoglobin 13.7 g/dL (12.0-16.0); Mean Corpuscular HGB CONC 33.2 g/dL (32.0-36.0); Mean Corpuscular Hemoglobin 32.3 pg (27.0-31.0); Mean Corpuscular Volume 97.5 fL (78.0-98.0); Mean Platelet Volume 8.8 fL (7.4-10.4); Platelet Count 205 thou/uL (130-400); RBC Distribution Width 11.6 % (11.5-14.5); Red Blood Cell (RBC) Count 4.23 mill/uL (4.20-5.40); White Blood Cell (WBC) Count 8.4 thou/uL (4.8-10.8)
[2018-06-15 21:05] LABS: Anion Gap 12 mmol/L (10-20); BUN (Urea Nitrogen) 19 mg/dL (9.8-20.1); Calc. Creatinine Clearance 56 mL/min (70-130); Calcium 9.5 mg/dL (7.8-10.44); Carbon Dioxide 27 mmol/L (23-31); Chloride 106 mmol/L (98-107); Estimated GFR-MDRD 64; Glucose 108 mg/dL (83-110); Potassium 4.2 mmol/L (3.5-5.1); Sodium 141 mmol/L (136-145)
[2018-06-16] MEDS: Levothyroxine Sodium 75 MCG TAB PO SCH (05:52)
[2018-06-16] MEDS ORDERED: traZODone HCl 50 MG TAB PO PRN (07:37)
[2018-06-16] MEDS: Clopidogrel Bisulfate 75 MG TAB PO SCH (08:49)
[2018-06-16] MEDS: guaiFENesin ER 600 MG TAB PO SCH (08:49)
[2018-06-16] MEDS: Famotidine 20 MG TAB PO SCH (08:49)
[2018-06-16] MEDS: Enoxaparin Sodium 40 MG/0.4 ML SYRINGE SC SCH (08:49)
[2018-06-16] MEDS: Cephalexin 250 MG CAP PO SCH ×2 (08:49→14:47)
[2018-06-16] MEDS: Donepezil HCl 10 MG TAB PO SCH (08:49)
[2018-06-16 11:18] VITALS: TEMP 97.4
[2018-06-16 12:55] VITALS: BP 133/77
--- NOTE | 2018-06-16 15:41 | PDOC.CTH ---
Cardiology Progress Note - Subjective EP PROGRESS NOTE: 06/16/18 Seen as follow up for sick sinus syndrome s/p pacemaker implantation. Slight tenderness at implant site. Otherwise no cardiac concerns or complaints. Possible DC later today. - Objective Vital Signs Temp Pulse Pulse Pulse Resp BP BP 06/16/18 11:14 97.4 F L 85 18 06/16/18 10:46 82 80 133/77 132/77 06/16/18 08:49 06/16/18 07:24 97.6 F 72 16 06/16/18 03:43 97.8 F 82 14 BP BP Pulse Ox Pulse Ox Pulse Ox 06/16/18 11:14 110/72 97 06/16/18 10:46 99 98 06/16/18 08:49 94 L 06/16/18 07:24 129/74 94 L 06/16/18 03:43 134/74 99 Weight 162 lb 11.2 oz 06/15/18 06/16/18 06/17/18 06:59 06:59 06:59 Intake Total 1100 240 Output Total 1750 550 350 Balance -650 -310 -350 - Physical Examination General/Neuro: alert & oriented x3, NAD Neck: carotid US brisk, no JVD present Lungs: CTA, unlabored respirations Heart: PMI normal, RRR Other PE findings: Left chest wall incision CDI. minimal bruising. - Telemetry Telemetry Rhythm: AP, VS - Labs Result Diagrams: 06/15/18 20:05 06/15/18 20:05 Troponin/CKMB Troponin I 0.013 ng/mL (< 0.028) 06/12/18 16:53 - Assessment/Plan 1. Sick sinus syndrome - s/p D-PPM implant on - demand atrial pacing 2. Falls - likely orthostatic PPM implant site healing nicely. Wound check with [facility] clinic in 2 weeks. Continue post implant Keflex.
--- NOTE | 2018-06-16 16:46 | DIS ---
DATE OF ADMISSION: 06/11/2018 DATE OF DISCHARGE: 06/16/2018 DISCHARGE DISPOSITION: [facility]. DISCHARGE CONDITION: The patient was seen and examined on the day of discharge. Denies any new complaints. FOLLOWUP: 1. Follow up with primary care physician, Dr. Xena Pickard in 1 week. 2. Follow up with Dr. Arley Franco in 2 to 3 weeks. ALLERGIES: NO KNOWN DRUG ALLERGIES. DISCHARGE MEDICATIONS: 1. Plavix 75 mg daily. 2. Aricept 10 mg b.i.d. 3. Gabapentin 600 mg at bedtime. 4. Levothyroxine 75 mcg daily. 5. Namenda 10 mg b.i.d. 6. Protonix 40 mg daily. 7. Simvastatin 10 mg daily. 8. Trazodone 100 mg at bedtime. 9. Venlafaxine 75 mg daily. 10. Tylenol as needed. 11. Keflex 500 mg three times daily for 7 days. INPATIENT CONSULTANTS: Electrophysiology, Dr. Flores; and Cardiology, Dr. Shahid Rodriguez. DIAGNOSTIC STUDIES: Echocardiogram this admission showed ejection fraction of 55% to 60% with diastolic dysfunction. Significant labs; sodium 141, potassium 4.3, BUN 22, creatinine 0.89. Troponin negative. TSH 1.1. WBC 8.4 with hemoglobin 13.7. Urinalysis was negative. INPATIENT PROCEDURES: On 06/15/2018, the patient underwent permanent pacemaker placement. BRIEF HOSPITAL COURSE: The patient is an 88-year-old female with dementia, hyperlipidemia, and hypothyroidism, presented to the hospital with generalized weakness. The patient was found to have symptomatic bradycardia with heart rate in 40s. She was admitted on telemetry unit. Please refer to the history and physical for details. The patient was evaluated by Cardiology as well as Electrophysiology. She underwent a permanent pacemaker placement yesterday. The procedure was delayed because of the weekend. She has been cleared by Cardiology for discharge. Fall precaution was emphasized. She will also benefit from a repeat orthostatic vital signs in 1 to 2 days. FINAL DIAGNOSES: 1. Symptomatic bradycardia, status post permanent pacemaker placement. 2. Recurrent falls, probably secondary to #1. Orthostatic hypotension is also a possibility. 3. Recent urinary tract infection. 4. Hypothyroidism. 5. Generalized weakness. 6. Chronic kidney disease stage 2. Total time coordinating the discharge of this patient was 33 minutes. Job ID: [id number]
== END 2018-06-16 15:13 | DRG 244 ==
LOC: ERS 12:20 → ERHOLD 18:15 → 2NO 06-12 14:39
PROVIDERS: ADMIT Emergency Medicine; ATTEND Emergency Medicine
PROC: 0JH606Z Insertion of Pacemaker, Dual Chamber into Chest Subcutaneous Tissue and Fascia, Open Approach (ICD-10-PCS; principal; 2018-06-15)
PROC: 02H63JZ Insertion of Pacemaker Lead into Right Atrium, Percutaneous Approach (ICD-10-PCS; 2018-06-15)
PROC: 02HK3JZ Insertion of Pacemaker Lead into Right Ventricle, Percutaneous Approach (ICD-10-PCS; 2018-06-15)
DX: I49.5 Sick sinus syndrome (principal); N18.2 Chronic kidney disease, stage 2 (mild); E78.5 Hyperlipidemia, unspecified; E03.9 Hypothyroidism, unspecified; K21.9 Gastro-esophageal reflux disease without esophagitis; F32.9 Major depressive disorder, single episode, unspecified; F03.90 Unspecified dementia, unspecified severity, without behavioral disturbance, psychotic disturbance, mood disturbance, and anxiety; Z87.440 Personal history of urinary (tract) infections; R29.6 Repeated falls; Z79.02 Long term (current) use of antithrombotics/antiplatelets; Z81.8 Family history of other mental and behavioral disorders
CPT/HCPCS: 33208; 36005; 36415; 71045; 75820; 80048; 80053; 81003; 83735; 84443; 84484; 85025; 93005; 93306; 99152; 99153; C1785; C1898; J1650; J2250; J2310; J3010; J3490

== ENCOUNTER 2018-06-23 21:00 | Inpatient (IN) | payer MEDICARE ==
--- NOTE | 2018-06-23 22:01 | RAD ---
FRONTAL VIEW CHEST: 06/23/18 COMPARISON: 06/15/18. INDICATION: Chest pain. FINDINGS: Interstitial prominence of each lung is present. There is no effusion, lobar consolidation, or pneumo thorax. The cardiomediastinal silhouette is stable. No additional significant interval change. IMPRESSION: Interstitial prominence favors edema related to CHF. Correlate clinically. Imaging followup may be obtained for continued assessment. POS: FRANCISCO
[2018-06-23 22:14] LABS: #Eosinphils 0.2 thou/uL (0.0-0.7); #Lymphocytes 1.3 thou/uL (1.20-3.40); #Monocytes 0.7 thou/uL (0.11-0.59); #Neutrophils 7.1 thou/uL (1.40-6.50); %Basophils 0.3 % (0.0-1.0); %Eosinophils 2.2 % (0.0-10.0); %Lymphocytes 13.8 % (21.0-51.0); %Monocytes 7.7 % (0.0-10.0); %Neutrophils 76.1 % (42.0-75.0); Hemoglobin 11.5 g/dL (12.0-16.0); Mean Corpuscular HGB CONC 32.8 g/dL (32.0-36.0); Mean Corpuscular Volume 97.5 fL (78.0-98.0); Mean Platelet Volume 8.4 fL (7.4-10.4); Platelet Count 198 thou/uL (130-400); RBC Distribution Width 11.4 % (11.5-14.5); Red Blood Cell (RBC) Count 3.59 mill/uL (4.20-5.40); White Blood Cell (WBC) Count 9.3 thou/uL (4.8-10.8)
[2018-06-23 22:39] LABS: ALT (SGPT) 20 U/L (8-55); AST (SGOT) 26 U/L (5-34); Albumin 3.5 g/dL (3.4-4.8); Alkaline Phosphatase 74 U/L (40-150); Anion Gap 11 mmol/L (10-20); BUN (Urea Nitrogen) 17 mg/dL (9.8-20.1); Bilirubin, Total 0.3 mg/dL (0.2-1.2); CK (CPK) 105 U/L (29-168); Calc. Creatinine Clearance 0 mL/min (70-130); Calcium 9.2 mg/dL (7.8-10.44); Carbon Dioxide 28 mmol/L (23-31); Chloride 105 mmol/L (98-107); Estimated GFR-MDRD 60; Globulin 2.4 g/dL (2.4-3.5); Glucose 123 mg/dL (83-110); Potassium 4.3 mmol/L (3.5-5.1); Protein, Total 5.9 g/dL (6.0-8.3); Sodium 140 mmol/L (136-145)
[2018-06-23 23:22] LABS: Magnesium 1.9 mg/dL (1.6-2.6)
[2018-06-24] MEDS ORDERED: Acetaminophen 325 MG TAB PO PRN ×2 (01:29→01:54)
[2018-06-24] MEDS ORDERED: Acetaminophen 650 MG Suppository PR PRN ×2 (01:29→01:54)
[2018-06-24] MEDS: Sodium Chloride 0.9% 1,000 ML IV SCH ×2 (02:00→16:42)
[2018-06-24 02:09] VITALS: BMI 28.3
[2018-06-24 02:16] LABS: #Eosinphils 0.2 thou/uL (0.0-0.7); #Lymphocytes 1.8 thou/uL (1.20-3.40); #Monocytes 0.8 thou/uL (0.11-0.59); #Neutrophils 6.1 thou/uL (1.40-6.50); %Basophils 0.4 % (0.0-1.0); %Eosinophils 1.9 % (0.0-10.0); %Lymphocytes 20.4 % (21.0-51.0); %Monocytes 9.3 % (0.0-10.0); Hemoglobin 10.8 g/dL (12.0-16.0); Mean Corpuscular HGB CONC 32.6 g/dL (32.0-36.0); Mean Corpuscular Hemoglobin 32.2 pg (27.0-31.0); Mean Corpuscular Volume 98.6 fL (78.0-98.0); Mean Platelet Volume 8.6 fL (7.4-10.4); Platelet Count 189 thou/uL (130-400); RBC Distribution Width 11.4 % (11.5-14.5); Red Blood Cell (RBC) Count 3.36 mill/uL (4.20-5.40)
[2018-06-24 02:43] LABS: Troponin I 0.013 ng/mL (< 0.028)
--- NOTE | 2018-06-24 03:03 | HP ---
CHIEF COMPLAINT: Right-sided chest pain. HISTORY OF PRESENT ILLNESS AND REVIEW OF SYSTEMS: Ms. Reyes is a very pleasant 88-year-old woman, presenting with right-sided chest pain for the last few days. She recently underwent a pacemaker placement on 06/15/2018 due to sick sinus syndrome. She was discharged to rehab and states she has had some generalized weakness. The patient denies having any redness to the area surrounding the pacemaker. She denies having any trauma, however, states she has been straining, having to use both hands in order to lift herself up out of chair, subsequently causing some discomfort across her chest. The patient states she first experienced crushing sensation on the right side of her chest earlier this morning. Since then, she has noted occasional sharp pain on the right side and at times on the left side with deep inspiration. She denies having any associated diaphoresis or shortness of breath. Denies having any nausea or vomiting. The pain does not radiate to her neck or down her arms. She denies having any abdominal pain. No nausea or vomiting. She has a history of hyperlipidemia, but is otherwise healthy. Laboratory studies done in the ED showed BNP in the 200s. ECG was done which did not demonstrate a normal paced rhythm. She was noted to have a heart rate in the 60s; however, on manual check of her heart rate is in the 40s. The patient is being admitted for symptomatic bradycardia and atypical chest pain. PAST MEDICAL HISTORY: 1. Hyperlipidemia. 2. Hypothyroidism. 3. GERD. 4. Dementia. PAST SURGICAL HISTORY: 1. Previous cataract surgery. 2. Status post hysterectomy. 3. Joint replacement of the right third finger. SOCIAL HISTORY: The patient usually lives at home with her daughter; however, recently she has been in inpatient rehab given recent discharge from hospital following pacemaker placement. ALLERGIES: NO KNOWN DRUG ALLERGIES. CURRENT MEDICATIONS: 1. Plavix 75 mg p.o. daily. 2. Venlafaxine 75 mg p.o. daily. 3. Protonix 40 mg p.o. daily. 4. Donepezil 20 mg p.o. daily. 5. Gabapentin 600 mg in the morning. 6. Lovastatin 10 mg p.o. daily. 7. Memantine twice daily. 8. Levothyroxine 75 mcg p.o. daily. 9. Trazodone 100 mg p.o. daily. PHYSICAL EXAMINATION: GENERAL: The patient appears well developed, in no acute distress. VITAL SIGNS: Temperature 97.8, pulse 77, respirations 14, O2 saturation 97% on room air, blood pressure 97/62. HEENT: Normocephalic and atraumatic. Pupils are equal, round, and reactive to light. Sclerae are without icterus. Oropharynx is clear. NECK: Supple. She is in no abnormalities. LUNGS: Clear to auscultation bilaterally without wheezes, rales, or rhonchi. Decreased breath sounds at the bases. CHEST: Anterior chest wall notable for slight swelling extending approximately 4 inches below the pacemaker. There is no redness, warmth, or signs of infection; however, the patient does have some mild yellowish bruising on the left side of her chest likely from recent procedure and reports some slight tenderness with palpation below the pacemaker. No tenderness above the pacemaker. No chest wall tenderness on the right side. ABDOMEN: Soft, nontender, and nondistended. Normoactive bowel sounds present. EXTREMITIES: No clubbing, cyanosis, or edema. NEUROLOGIC: Alert and oriented x3. SKIN: Without rash or jaundice. LABORATORY DATA: White blood count 9.3, hemoglobin 11.5, hematocrit 35, platelets 198. Sodium 140, potassium 4.3, BUN 17, creatinine 0.89, EGFR 60, magnesium 1.9. LFTs unremarkable, however, lipase elevated at 451. Initial troponin negative. BNP 229.5. IMAGING DATA: Chest x-ray on 06/23/2018, interstitial prominence or residuals related to CHF. Cardiomediastinal silhouette stable. No additional significant interval change. IMPRESSION AND PLAN: Ms. Reyes will be admitted to telemetry for management and workup of the following conditions. 1. Chest pain. The patient does have pleuritic type chest pain and reproducible tenderness on palpation with recent history of straining to lift herself up from the chair with both arms. There is a possibility of musculoskeletal pain; however, we will need to rule out underlying cardiac cause. The patient asymptomatic at present. Initial troponin negative. Repeat troponin requested. Awaiting pacemaker interrogation. Consider EP consultation, pending results. Consider repeat echocardiogram to assess proper lead placement should interrogation warrant further investigation. 2. Bradycardia. Continue telemetry. Monitor heart rate. Plan as above. 3. Elevated lipase. There is a possibility that she could have an acute pancreatitis causing referred pain. At present, she is afebrile without any nausea, vomiting, or abdominal pain. CT abdomen with contrast requested. 4. Hypothyroidism. Continue home medication. Check TSH. 5. Gastrointestinal prophylaxis. 6. Venous thromboembolism prophylaxis with mechanical SCDs. The patient's case was discussed with Dr. Medina, who agrees with plan of care as described above. Job ID: [id number]
[2018-06-24 03:14] LABS: ALT (SGPT) 22 U/L (8-55); AST (SGOT) 27 U/L (5-34); Albumin 3.4 g/dL (3.4-4.8); Alkaline Phosphatase 63 U/L (40-150); Anion Gap 16 mmol/L (10-20); BUN (Urea Nitrogen) 18 mg/dL (9.8-20.1); Bilirubin, Total 0.2 mg/dL (0.2-1.2); Calc. Creatinine Clearance 51 mL/min (70-130); Calcium 8.9 mg/dL (7.8-10.44); Carbon Dioxide 24 mmol/L (23-31); Chloride 106 mmol/L (98-107); Estimated GFR-MDRD 56; Globulin 2.3 g/dL (2.4-3.5); Glucose 104 mg/dL (83-110); Potassium 4.2 mmol/L (3.5-5.1); Protein, Total 5.7 g/dL (6.0-8.3); Sodium 142 mmol/L (136-145)
[2018-06-24] MEDS: Famotidine 20 MG TAB PO SCH (08:05)
[2018-06-24] MEDS ORDERED: Famotidine 20 MG TAB PO SCH ×2 (09:00)
[2018-06-24] MEDS ORDERED: Sodium Chloride 0.9% 1,000 ML IV SCH (09:30)
--- NOTE | 2018-06-24 09:37 | CT ---
CT ABDOMEN WITH AND WITHOUT IV CONTRAST: DATE: 06/24/2018. HISTORY: Back pain, history of hysterectomy. Possible pancreatitis. COMPARISON: None available. FINDINGS: There is partial visualization of cardiac pacemaking leads. There is a small to moderate sized pericardial effusion incompletely imaged on this exam. There are tiny bilateral pleural effusions greater on the right with associated passive atelectasis. Calcified granulomata are seen at each lung base. There is a subpleural pulmonary nodule at the posterolateral aspect left lung base measuring 11 mm wi th a noncalcified pulmonary nodule in the anterior aspect right lung base measuring approximately 4 m m. There is a small hiatal hernia. Contrast is seen in the distal esophagus which could be related to g astroesophageal reflux. There is suggested thickening in the region of the gastric antrum and pylorus of the stomach as well as involving the 1st portion of the duodenum which could be related to ulcer disease. There is infla mmatory stranding seen adjacent to the region of the pylorus as well as adjacent to the duodenum. Th ere is prominent thinning of the medial wall of the 1st portion of the duodenum, but no extraluminal gas is seen to suggest a bowel perforation at this time. Inflammatory changes are seen extending int o the region of the ramesh hepatis and abutting the region of the gallbladder. The gallbladder is not distended, and there is no pericholecystic fluid identified. The pancreas demonstrates a normal cinda earance and enhances normally. While the inflammatory changes abut a portion of the head of the panc reas, these inflammatory changes are thought to most likely be related to changes involving the 1st p ortion of the duodenum and pylorus of the stomach and, again, are worrisome for peptic ulcer disease; although, malignancy could not be entirely excluded. GI consultation is recommended for further ericka luation. There is mild periportal edema. The portal veins are patent. The spleen, bilateral adrenal glands, and kidneys as well as the remainder of the small bowel demonst rate a normal CT appearance. The majority of the appendix is visualized and is normal in caliber. Dense vascular calcifications are seen in the abdominal aorta and involving the iliac arteries. There are degenerative changes in the spine with left convex scoliosis of the lumbar spine. IMPRESSION: 1. Inflammatory changes in the right upper quadrant with what appears to be mild bowel wall thic kening involving the pylorus of the stomach and 1st portion of the duodenum with suggested thinning o f the wall of the medial aspect of the 1st portion of the duodenum/duodenal bulb. No definite extral uminal gas is seen to suggest perforation at this time, but findings are worrisome for peptic ulcer d isease; although, malignancy cannot be entirely excluded. Adjacent inflammatory changes are likely r elated to duodenitis and presumed ulcer disease. A GI consultation and direct visualization is recom mended for further evaluation. 2. Subpleural left lower pulmonary nodule measuring 11 mm with a smaller 4 mm pulmonary nodule in th e anterior right lung base. Followup CT thorax is recommended for further evaluation. 3. Small to moderate sized pericardial effusion. 4. Tiny bilateral pleural effusions. 5. Hiatal hernia with contrast in the distal esophagus likely related to gastroesophageal reflux. 6. Colonic diverticulosis. 7. Dense vascular calcifications in the abdominal aorta and iliac arteries. 8. The above findings were discussed with Chelsi Mota, nurse practitioner, on 06/24/2018 at 0[address] rs. CODE CR
[2018-06-24] MEDS ORDERED: Pantoprazole 40 MG VIAL IVP SCH (09:45)
--- NOTE | 2018-06-24 10:36 | CON ---
DATE OF CONSULTATION: HISTORY OF PRESENT ILLNESS: The patient is an unfortunate 88-year-old woman with a history of sick sinus syndrome, status post pacemaker placement, who presented with chest discomfort. The patient was seen last week with weakness and was noted to have a slow heart rate. She underwent a cardiac evaluation. She had an echocardiogram, which revealed normal left ventricular systolic function. She had placement of an electronic ventricular pacemaker. The patient presented to the emergency room with chest discomfort. She reports the chest discomfort was initially on the right side, but spread throughout her chest. She also reports pain in her shoulders. She reports this is a continuous discomfort. The patient denies having any nausea or vomiting. PAST MEDICAL HISTORY: 1. Sick sinus syndrome. 2. Dementia. 3. Dyslipidemia. PAST SURGICAL HISTORY: Hysterectomy, cataract surgery, and finger surgery. SOCIAL HISTORY: She lives with her daughter. ALLERGIES: NO KNOWN DRUG ALLERGIES. MEDICATIONS: See nursing list. REVIEW OF SYSTEMS: Ten-point system noticeable for increasing weakness, otherwise unremarkable. PHYSICAL EXAMINATION: GENERAL: Obese woman, in no acute distress. VITAL SIGNS: Blood pressure is 88/60. NECK: No jugular venous distention. LUNGS: Clear to auscultation. HEART: Regular rate and rhythm. Normal S1 and S2. ABDOMEN: Nondistended. EXTREMITIES: Showed no edema. VASCULAR: Radial pulses 2+. LABORATORY DATA: Sodium 142, potassium 4.2, chloride 106, bicarb 24, BUN 18, creatinine is 0.94. Her lipase was 451. Her white blood cell count is 9.0, hemoglobin 10.8, hematocrit 33.1, platelets 189. Troponin was 0.013. Her EKG revealed electronic ventricular pacemaker. IMPRESSION: 1. Chest pain, probably secondary to pancreatitis. 2. Status post pacemaker placement. 3. Dementia. 4. Hypotension. PLAN: This is an unfortunate woman presents with pancreatitis. She is undergoing an evaluation. The patient's blood pressure is low. We will bolus her with IV fluids. We will follow this patient with you through her hospitalization. Job ID: [id number] [facility]
[2018-06-24 10:56] LABS: Iron 74 ug/dL (50-170); Iron Binding Capacity, Total 268 mcg/dL (265-497)
[2018-06-24] MEDS: Fentanyl 100 MCG/2 ML VIAL SLOW IVP PRN ×2 (11:25→16:42)
[2018-06-24] MEDS: Sucralfate 1 GM TAB PO SCH ×3 (11:26→20:56)
[2018-06-24] MEDS ORDERED: ISOVUE-370 76%-LOCM 1 ML ONE (13:28)
--- NOTE | 2018-06-24 14:38 | PDOC.PN ---
- Subjective Encounter Start Date: 06/24/18 Encounter Start Time: 10:00 Subjective: Patient in moderate pain distress, epigastric and RUQ -: Reports pain radiates to her back - Objective Resuscitation Status - Order Detail: 06/24/18 01:29 Resuscitation Status Routine Co-Sign Provider: Resuscitation Status: FULL: Full Resuscitation Discussed with: Patient and daughter Vital Signs & Weight: Vital Signs (12 hours) Temp Pulse Pulse Resp BP BP BP 06/24/18 11:20 90/64 06/24/18 11:12 98.2 F 63 16 06/24/18 08:52 72 88/60 L 06/24/18 08:41 72 88/60 L 06/24/18 07:39 62 84/55 L 06/24/18 07:05 98.3 F 62 16 81/55 L 81/55 L 06/24/18 04:56 97.7 F 74 20 91/51 L Pulse Ox 06/24/18 11:20 06/24/18 11:12 96 06/24/18 08:52 06/24/18 08:41 06/24/18 07:39 06/24/18 07:05 94 L 06/24/18 04:56 93 L Weight Weight 77.383 kg I&O: 06/23/18 06/24/18 06/25/18 06:59 06:59 06:59 Intake Total 515 353 Balance 515 353 Result Diagrams: 06/24/18 01:57 06/24/18 01:57 Phys Exam - Physical Examination Moderate pain distress HEENT: PERRLA Neck: no nodes, no JVD Respiratory: no wheezing, clear to auscultation bilateral Cardiovascular: RRR, no significant murmur Gastrointestinal: positive bowel sounds Tender to palpation to epigastric and RUQ Musculoskeletal: no edema, pulses present Neurological: non-focal, moves all 4 limbs Lymphatic: no nodes Psychiatric: normal affect Skin: normal turgor Dx/Plan (1) Epigastric abdominal pain Code(s): R10.13 - EPIGASTRIC PAIN Status: Acute (2) General weakness Code(s): R53.1 - WEAKNESS Status: Acute (3) CKD (chronic kidney disease) stage 2, GFR 60-89 ml/min Code(s): N18.2 - CHRONIC KIDNEY DISEASE, STAGE 2 (MILD) Status: Chronic (4) Hypothyroidism Code(s): E03.9 - HYPOTHYROIDISM, UNSPECIFIED Status: Chronic - Plan cont current plan of care Dr. Burton, GI consulted, states he will most likely take her to OR in AM -: Dr. Smith made aware of case. Status changed in INP per CM. -: Will keep NPO, pain meds, PPI ordered. -: Will continue to monitor VS and lab work * . Review of Systems - Review of Systems Cardiovascular: chest pain (right sided chest pain) Gastrointestinal: Nausea, Vomiting, Abdominal Pain (Pain to epigastric and RUQ on palpation), Diarrhea, Constipation, Melena, Hematochezia, Other - Medications/Allergies Allergies/Adverse Reactions: Allergies Allergy/AdvReac Type Severity Reaction Status Date / Time No Known Drug Allergies Allergy Verified 06/24/18 02:04 Medications: Current Medications Acetaminophen (Tylenol) 650 mg PO Q4H PRN PRN Reason: Headache/Fever/Mild Pain (1-3) Acetaminophen (Tylenol) 650 mg [place] Q4H PRN PRN Reason: Headache/Fever/Mild Pain (1-3) Famotidine (Pepcid) 20 mg PO DAILY [facility] Last Admin: 06/24/18 08:05 Dose: Not Given Fentanyl (Sublimaze) 25 mcg SLOW IVP Q4H PRN PRN Reason: Severe Pain (7-10) Last Admin: 06/24/18 11:25 Dose: 25 mcg Sodium Chloride (Normal Saline 0.9%) 1,000 mls @ 55 mls/hr IV .[id number] [facility] Last Admin: 06/24/18 02:00 Dose: 1,000 mls Pantoprazole Sodium (Protonix) 40 mg IVP Q12HR [facility] Sodium Chloride (Flush - Normal Saline) 10 ml IVF Q12HR PRN PRN Reason: Saline Flush Sodium Chloride (Flush - Normal Saline) 10 ml IVF PRN PRN PRN Reason: Saline Flush Sucralfate (Carafate) 1 gm PO ACHS [facility] Last Admin: 06/24/18 11:26 Dose: Not Given
--- NOTE | 2018-06-24 16:11 | ULT ---
ULTRASOUND ABDOMEN LIMITED: (RIGHT UPPER QUADRANT) 06/24/18 HISTORY: 88-year-old female with right upper quadrant abdominal pain. FINDINGS: The gallbladder has normal wall thickness and has no evidence of gallstones or sludge. The hepatic e chogenicity is normal. The right kidney has normal echogenicity and has no hydronephrosis. The panc reas is visualized, although ultrasound is relatively insensitive for pancreatic pathology compared t o CT and MRI. There is no biliary dilation. The common duct caliber is 4 mm. IMPRESSION: Normal. simone [] POS: FRANCISCO
--- NOTE | 2018-06-24 16:51 | CON ---
DATE OF CONSULTATION: 06/24/2018 REASON FOR CONSULTATION: Abdominal pain. HISTORY: Ms. Reyes is an 88-year-old female, who was in her usual state of health until yesterday mid afternoon when she suddenly developed onset of right-sided lower chest pain. The pain soon radiated downward to the upper abdomen and in the upper chest and to her back. She did not have any nausea or vomiting. There is no altered bowel function. She denies having any melenic stools. The pain had been very severe up until this morning when it began to subside. She presented to the emergency room and was admitted after having had a CT that showed inflammatory changes involving the lower and upper abdomen. Dr. Rodriguez has seen her and did not think that the pain is coming from any cardiac etiology. She did have a recent pacemaker placement about a week ago. PAST MEDICAL HISTORY: 1. Sick sinus syndrome, status post pacemaker placement. 2. Chronic gastroesophageal reflux. 3. History of esophageal stricture, last dilated by Dr. Saba last year, in August of 2017. 4. Hypothyroidism. 5. Hyperlipidemia. 6. Dementia. 7. Status post hysterectomy. 8. Cataract surgery. ALLERGIES: NONE. MEDICATIONS: At home include; 1. Plavix. 2. Protonix. 3. Donepezil. 4. Gabapentin. 5. Lovastatin. 6. Memantine. 7. Levothyroxine. 8. Trazodone. SOCIAL HISTORY: The patient has no tobacco or alcohol usage. She lives at home with her daughter. FAMILY HISTORY: Negative for any known GI problem, liver disease, or GI malignancy. REVIEW OF SYSTEMS: Not reliably obtained, but a 10-point review of systems did not show any other pertinent positives or negatives. PHYSICAL EXAMINATION: VITAL SIGNS: Temperature is 98.2, blood pressure 90/64, pulse is 63. GENERAL: She is alert. Does not appear in any distress. HEENT: Shows anicteric sclerae. Oropharynx clear. NECK: Supple. CV: Shows normal S1 and S2. Regular rate and rhythm. CHEST: Shows normal breath sounds. ABDOMEN: Soft, tender mostly in the right upper quadrant and epigastrium, mild. No guarding or rebound. She has active bowel sounds. EXTREMITIES: Show no edema. LABORATORY DATA: WBC is 9.0, hemoglobin 10.8, and platelet count of 189. Electrolytes within normal range. Bilirubin 0.2. AST and ALT are normal at 27 and 22, alkaline phosphatase 63. Lipase on admission was 451, now at 88. DIAGNOSTIC DATA: CT scan performed yesterday showed inflammatory changes below the stomach around the gastric antrum and pylorus extending into the first portion duodenum with adjacent fat stranding. Inflammation also extending into the ramesh hepatis and the gallbladder area. Pancreas appears to be discrete and normal. ASSESSMENT: Right-sided chest pain, likely GI etiology given the CT finding of inflammatory changes involving the right upper quadrant and perhaps in the gastric antrum and duodenal area. Her lipase was elevated on admission, but this certainly could be elevation from GI tract inflammation and not the pancreas. Pancreatitis is distinct possibility. The patient does not consume alcohol, but she still has gallbladder. RECOMMENDATIONS: 1. Continue n.p.o. given the possibility of pancreatitis. 2. We will proceed with diagnostic upper endoscopy in a.m. 3. We will obtain gallbladder ultrasound in the meantime. 4. We will follow, further recommendation to follow depending on clinical course and endoscopic finding. Job ID: [id number]
[2018-06-24] MEDS: Pantoprazole 40 MG VIAL IVP SCH (20:56)
[2018-06-25] MEDS ORDERED: Acetaminophen 1,000 MG in Premix Bag 1 BAG IVPB SCH (02:00)
[2018-06-25] MEDS: Piperacillin/Tazobactam 4.5 GM in Sodium Chloride 0.9% 100 ML IVPB SCH ×3 (02:22→18:23)
[2018-06-25 02:43] LABS: #Lymphocytes 1.6 thou/uL (1.20-3.40); %Basophils 0.3 % (0.0-1.0); %Lymphocytes 11.5 % (21.0-51.0); %Monocytes 14.5 % (0.0-10.0); %Neutrophils 73.6 % (42.0-75.0); Hemoglobin 10.9 g/dL (12.0-16.0); Mean Corpuscular HGB CONC 32.8 g/dL (32.0-36.0); Mean Corpuscular Volume 97.7 fL (78.0-98.0); Mean Platelet Volume 8.8 fL (7.4-10.4); Platelet Count 198 thou/uL (130-400); RBC Distribution Width 11.6 % (11.5-14.5); Red Blood Cell (RBC) Count 3.39 mill/uL (4.20-5.40); White Blood Cell (WBC) Count 13.6 thou/uL (4.8-10.8)
[2018-06-25 03:03] LABS: Lactic Acid 1.9 mmol/L (0.5-2.2)
[2018-06-25 03:19] LABS: ALT (SGPT) 42 U/L (8-55); AST (SGOT) 38 U/L (5-34); Albumin 3.3 g/dL (3.4-4.8); Alkaline Phosphatase 61 U/L (40-150); Anion Gap 16 mmol/L (10-20); BUN (Urea Nitrogen) 26 mg/dL (9.8-20.1); Bilirubin, Total 0.5 mg/dL (0.2-1.2); Calc. Creatinine Clearance 48 mL/min (70-130); Calcium 8.6 mg/dL (7.8-10.44); Carbon Dioxide 19 mmol/L (23-31); Chloride 108 mmol/L (98-107); Estimated GFR-MDRD 54; Globulin 2.5 g/dL (2.4-3.5); Glucose 130 mg/dL (83-110); Lipase 25 U/L (8-78); Potassium 4.5 mmol/L (3.5-5.1); Protein, Total 5.8 g/dL (6.0-8.3); Sodium 138 mmol/L (136-145)
[2018-06-25] MEDS ORDERED: DOPamine 400 MG/D5W 250 ML 250 ML ONE (04:18)
[2018-06-25] MEDS ORDERED: DOPamine 400 MG/D5W 250 ML 250 ML IVPB SCH (04:30)
--- NOTE | 2018-06-25 04:45 | PDOC.EVN ---
Event Note - Event Note Event Note: pt went into septic shock, does not tolerate fluid resuscitation, we have hold the fluids and started on vasopressors, abt's cultures to be followed to make any further adjustment. will monitor in icu
[2018-06-25] MEDS ORDERED: Ondansetron PF 4 MG/2 ML Vial IVP PRN ×2 (04:52→05:05)
[2018-06-25] MEDS ORDERED: Norepinephrine 8 MG/0.9% NS 250 ML IVPB SCH (05:00)
[2018-06-25] MEDS ORDERED: Sodium Chloride 0.9% 500 ML IV SCH (05:15)
[2018-06-25] MEDS: Vancomycin HCl 1 GM in Premix Bag 1 BAG IVPB SCH (06:05)
[2018-06-25] MEDS: Sucralfate 1 GM TAB PO SCH (08:09)
[2018-06-25] MEDS: Famotidine 20 MG TAB PO SCH (08:09)
[2018-06-25] MEDS: Pantoprazole 40 MG VIAL IVP SCH ×2 (08:09→20:23)
--- NOTE | 2018-06-25 08:49 | PDOC.PN ---
- Subjective Encounter Start Date: 06/25/18 Encounter Start Time: 08:48 Ms. Reyes was seen today in follow-up of right sided chest pain. She was moved to the ICU last night due to hypotension. She is awake and alert. She says the pain is better. She denies shortness of breath. - Objective Resuscitation Status - Order Detail: 06/24/18 01:29 Resuscitation Status Routine Co-Sign Provider: Resuscitation Status: FULL: Full Resuscitation Discussed with: Patient and daughter COOPER Reviewed: Yes Vital Signs & Weight: Vital Signs (12 hours) Temp Pulse Resp BP Pulse Ox 06/25/18 07:00 97 F L 06/25/18 04:42 97 06/25/18 04:34 98.8 F 06/25/18 04:29 98.4 F 129 H 24 H 73/53 L 96 06/24/18 20:54 97.8 F 79 16 124/79 95 Weight Weight 175 lb 4.28 oz Most Recent Monitor Data Heart Rate from ECG 100 NIBP 99/76 NIBP BP-Mean 83 Respiration from ECG 22 SpO2 99 I&O: 06/24/18 06/25/18 06/26/18 06:59 06:59 06:59 Intake Total 515 2692 0 Output Total 145 100 Balance 515 2547 -100 Result Diagrams: 06/25/18 02:34 06/25/18 02:34 Phys Exam - Physical Examination HEENT: PERRLA Respiratory: no wheezing, no rales, no rhonchi, clear to auscultation bilateral Cardiovascular: RRR, no significant murmur, no rub Gastrointestinal: soft, non-tender, no distention, positive bowel sounds Musculoskeletal: pulses present, edema present trace pedal edema Dx/Plan (1) Chest pain Code(s): R07.9 - CHEST PAIN, UNSPECIFIED Status: Acute (2) Sick sinus syndrome Code(s): I49.5 - SICK SINUS SYNDROME Status: Chronic Comment: s/p pacemaker placement (3) Hypertension Code(s): I10 - ESSENTIAL (PRIMARY) HYPERTENSION Status: Chronic (4) Hypothyroidism Code(s): E03.9 - HYPOTHYROIDISM, UNSPECIFIED Status: Chronic - Plan * Chest Pain- ? etiology- she is being prepared to go for EGD this morning, concern is for peptic ulcer disease * Hypotension- ? etiology- volume depletion. She was moved to the ICU and started on Levophed- she developed AFIB with RVR, after this was started, but she has since converted back to sinus- her blood pressure is stable * Sick- sinus syndrome- s/p recent pacemaker- stable * Hypothyroidism- clinically euthyroid
--- NOTE | 2018-06-25 09:13 | RAD ---
CHEST 1 VIEW: HISTORY: Elevated temperature. COMPARISON: 06/23/2018. FINDINGS: Monitor leads overlie the chest. Left ICD. Patchy linear and reticulonodular parenchymal changes bi laterally with some indistinction of the left hemidiaphragm which appears to be new from the prior st udy, evidence for some developing left lower lobe parenchymal change and possibly some pleural effusi on. This certainly could represent some minimal early pneumonia. The right infrahilar markings are also slightly more prominent which could also represent some mild pneumonitis or may be related to sl ightly less inspiration. IMPRESSION: Abnormal increased density in the left retrocardiac region partially obliterating the left hemidiaphr agm new from prior study raising concern for left lower lobe pneumonia and/or pleural effusion with i ncreased markings in the right infrahilar region as well. Continued short-term followup. CODE T POS: FRANCISCO
--- NOTE | 2018-06-25 10:02 | CON ---
DATE OF CONSULTATION: 06/25/2018 This encompasses 50 minutes of the time, of that time, greater than 50% was spent with the patient and/or the patient's bedside in ICU. REASON FOR EVALUATION: Hypotension. HISTORY OF PRESENT ILLNESS: This is an 88-year-old female, who was sent to rehab recently after hospital stay here for sick sinus syndrome and pacemaker placement. Yesterday at rehab, she developed sudden onset of right lower chest pain radiating to her abdomen. CT scan showed inflammatory changes involving the lower and upper abdomen. Dr. Saba is taking her down for EGD today with a presumptive diagnosis that she could have a duodenal ulcer. The patient had some nausea and vomiting last night. She denies any cough, congestion, fever, or chills. It should be noted that she was placed on a Levophed drip last night for hypotension. PAST MEDICAL HISTORY: 1. Sick sinus syndrome, requiring pacemaker placement. 2. Gastroesophageal reflux. 3. Esophageal stricture. 4. Hypothyroidism. 5. Hyperlipidemia. 6. Dementia. PAST SURGICAL HISTORY: 1. Hysterectomy. 2. Cataract surgery. 3. Pacemaker placement. ALLERGIES: NONE. SOCIAL HISTORY: No history of smoking or alcohol use. Lives at home with her daughter. FAMILY MEDICAL HISTORY: Unremarkable. REVIEW OF SYSTEMS: Denies fever, chills, hemoptysis, melena, hematochezia, hematuria, or dysuria. Remaining 10-point review of systems was negative. MEDICATIONS: Prior to admission; trazodone, Effexor, simvastatin, Protonix, Namenda, Synthroid, Neurontin, Aricept, and Plavix. Current inpatient medications; Levophed, Pepcid, vancomycin, and Zosyn. PHYSICAL EXAMINATION: VITAL SIGNS: Temperature 97, pulse 100, blood pressure 99/76, looks like the lowest blood pressure yesterday was 69/52. Intake for the last shift 2692, output 145. GENERAL: She appears in no acute distress. HEENT: Pupils reactive. Sclerae anicteric. Oropharynx, no bleeding. NECK: No adenopathy, JVD, or bruits. CHEST: She has a fresh pacemaker site left upper quadrant chest, which is healing well. CARDIAC: Regular rate and rhythm without murmur. LUNGS: Clear to auscultation. ABDOMEN: She is tender in the right upper quadrant and in the mid epigastric area. EXTREMITIES: No clubbing, cyanosis, or edema. LABORATORY DATA: Sodium 138, potassium 4.5, chloride 108, CO2 of 19, BUN 26, creatinine 0.9, glucose 130. AST 38, ALT 42. Total protein 5.8, albumin 3.3. BNP was 229. White blood cell count 13.6, hemoglobin 10.9, hematocrit 33.1, and platelet count 198. The x-ray shows some subtle right middle lobe perhaps left lower lobe infiltrative changes. ASSESSMENT: Hypotension-etiology unclear. This could be an abdominal catastrophe such as a duodenal ulcer. Pneumonia needs to be in the differential also given the appearance of the chest x-ray. PLAN: 1. EGD this morning. 2. Continue vancomycin and Zosyn. 3. Wean off Levophed as tolerated. Job ID: [id number]
--- NOTE | 2018-06-25 10:09 | OP ---
DATE OF PROCEDURE: 06/25/2018 PROCEDURE PERFORMED: Esophagogastroduodenoscopy, diagnostic. PREPROCEDURE DIAGNOSES: 1. Presentation with right chest and right upper abdominal pain. CAT scan showed possible inflammation in the area of the duodenal bulb, pyloric channel, and medial wall of the pancreas. 2. The patient had a transient lipase elevation of 451, now normal. The feeling was this may be ulcer disease. POSTPROCEDURE DIAGNOSES: 1. Mild inflammation at the pyloric channel with no ulceration. 2. Normal duodenal bulb. 3. Normal duodenum of the fourth portion except for a periampullary diverticula with no inflammatory changes. 4. Normal stomach. 5. Hiatal hernia. 6. Normal esophagus. RECOMMENDATIONS: Although it appears this may have been a mild pancreatitis, she has no stones. No overt home medications would predispose her to pancreatitis. She has been in and out of the hospital recently with cardiac arrhythmias, had a pacemaker placed. Continue to treat with PPI. Would obtain HIDA scan to make sure this is not a calculous cholecystitis. PROCEDURE IN DETAIL: The patient was informed of the risks, benefits, possible complications of endoscopy including perforation, reaction to medication, and aspiration, informed consent was obtained. The patient was brought to the endoscopy suite from the ICU, where she was sedated. She remained stable. A bite block was placed into her oropharynx. She is edentulous. The endoscope was advanced to the esophagus, stomach, and second and third portion of the duodenum and slowly removed. The esophagus was normal. The stomach showed a hiatal hernia about 4 cm in size without any inflammatory changes. The stomach was normal in forward and retroflexed views. The pylorus was mildly erythematous, but no ulcers were noted. The scope could be advanced through this area with little bit of pressure. There was no evidence of pyloric channel ulcers or erosions. The duodenal bulb appeared normal without any evidence of ulcerations or erosions or edema or thickening or inflammation. The second portion of duodenum was normal and the third portion was normal. There was a periampullary diverticula just distal to the ampulla with some food material in it, but there was no inflammatory changes there. The scope was changed out for a colonoscope and the scope was advanced further down to the duodenum. No inflammatory changes were seen. The EGD scope was then advanced into the back and the pylorus and duodenal bulb were evaluated very closely to make sure we are not missing any ulcer. There were no inflammatory ulcer changes there. The scope was removed. The patient tolerated the procedure well. There were no complications. After the CT scans were re-reviewed with Radiology, the feeling was this may have been decompressed duodenum. This area with regard to concern for inflammation and mild pancreatitis. We will go ahead and get a HIDA scan. Job ID: [id number]
[2018-06-25] MEDS: Sodium Chloride 0.9% 1,000 ML IV SCH ×2 (10:25→18:39)
--- NOTE | 2018-06-25 13:17 | EKG ---
Test Reason : STAT Blood Pressure : / mmHG Vent. Rate : 131 BPM Atrial Rate : 105 BPM P-R Int : 000 ms QRS Dur : 122 ms QT Int : 314 ms P-R-T Axes : 000 -35 036 degrees QTc Int : 463 ms Atrial fibrillation with rapid ventricular response with premature ventricular or aberrantly conducte d complexes Left axis deviation Right bundle branch block Abnormal ECG Confirmed by JUSTICE BLANK, DR. Neal ([id number]) on 06/25/2018 1:17:16 PM Referred By: Confirmed By:DR. Ángel RENDON MD
[2018-06-25] MEDS ORDERED: PROPOFOL 200 MG/20 ML VIAL ONE (16:03)
--- NOTE | 2018-06-25 18:46 | NM ---
RADIONUCLIDE HEPATOBILIARY SCAN AND GALLBLADDER EJECTION FRACTION: Date: 06/25/18 HISTORY: Right upper quadrant pain. FINDINGS: Early images show physiologic uptake of radiotracer within the hepatic parenchyma. Gallbladder first imaged at 9 minutes. Uptake within the small bowel at 20 minutes. CCK 159 mcg given IV. There is no s ignificant excretion of the radiotracer from the gallbladder to the small bowel after that point. IMPRESSION: 1. No evidence of common duct or cystic duct obstruction. 2. Gallbladder ejection fraction of 1% is markedly abnormal and suggests chronic gallbladder dyskine sis. POS: FRANCISCO
[2018-06-25] MEDS: Amiodarone 450 MG in Dextrose 5% in Water 250 ML IVPB SCH (21:39)
[2018-06-26] MEDS: Piperacillin/Tazobactam 4.5 GM in Sodium Chloride 0.9% 100 ML IVPB SCH ×3 (02:48→17:15)
[2018-06-26 05:02] LABS: #Lymphocytes 1.6 thou/uL (1.20-3.40); #Monocytes 1.2 thou/uL (0.11-0.59); #Neutrophils 7.5 thou/uL (1.40-6.50); %Basophils 0.3 % (0.0-1.0); %Eosinophils 0.3 % (0.0-10.0); %Neutrophils 72.3 % (42.0-75.0); Hemoglobin 9.2 g/dL (12.0-16.0); Mean Corpuscular HGB CONC 32.3 g/dL (32.0-36.0); Mean Corpuscular Hemoglobin 32.3 pg (27.0-31.0); Mean Platelet Volume 8.8 fL (7.4-10.4); Platelet Count 134 thou/uL (130-400); RBC Distribution Width 11.8 % (11.5-14.5); Red Blood Cell (RBC) Count 2.86 mill/uL (4.20-5.40); White Blood Cell (WBC) Count 10.3 thou/uL (4.8-10.8)
[2018-06-26] MEDS: Vancomycin HCl 1 GM in Premix Bag 1 BAG IVPB SCH (05:13)
[2018-06-26] MEDS: Sodium Chloride 0.9% 1,000 ML IV SCH ×2 (05:13→20:49)
[2018-06-26 05:28] LABS: ALT (SGPT) 417 U/L (8-55); AST (SGOT) 359 U/L (5-34); Alkaline Phosphatase 48 U/L (40-150); Anion Gap 10 mmol/L (10-20); BUN (Urea Nitrogen) 27 mg/dL (9.8-20.1); Bilirubin, Total 0.6 mg/dL (0.2-1.2); Calc. Creatinine Clearance 49 mL/min (70-130); Calcium 8.3 mg/dL (7.8-10.44); Carbon Dioxide 22 mmol/L (23-31); Chloride 110 mmol/L (98-107); Estimated GFR-MDRD 52; Globulin 2.2 g/dL (2.4-3.5); Glucose 105 mg/dL (83-110); Lipase 33 U/L (8-78); Potassium 4.2 mmol/L (3.5-5.1); Protein, Total 5.2 g/dL (6.0-8.3); Sodium 138 mmol/L (136-145)
--- NOTE | 2018-06-26 09:30 | PDOC.PN ---
- Subjective Encounter Start Date: 06/26/18 Encounter Start Time: 09:28 Ms. Reyes was seen today in follow-up of chest pain. she says the pain is much better. She denies any nausea or vomiting. - Objective Resuscitation Status - Order Detail: 06/24/18 01:29 Resuscitation Status Routine Co-Sign Provider: Resuscitation Status: FULL: Full Resuscitation Discussed with: Patient and daughter COOPER Reviewed: Yes Vital Signs & Weight: Vital Signs (12 hours) Temp Pulse Resp BP Pulse Ox 06/26/18 04:00 98.1 F 71 20 99/59 L 98 Weight Weight 174 lb 9.6 oz Most Recent Monitor Data Heart Rate from ECG 90 NIBP 104/72 NIBP BP-Mean 82 Respiration from ECG 23 SpO2 97 I&O: 06/25/18 06/26/18 06/27/18 06:59 06:59 06:59 Intake Total 2692 1407 1320 Output Total 145 413 650 Balance 2547 994 670 Result Diagrams: 06/26/18 04:28 06/26/18 04:28 Phys Exam - Physical Examination HEENT: PERRLA Respiratory: no wheezing, no rales, no rhonchi, clear to auscultation bilateral Cardiovascular: RRR, no significant murmur, no rub + reproducible pain in the right upper chest Gastrointestinal: soft, non-tender, no distention, positive bowel sounds Musculoskeletal: pulses present, edema present Dx/Plan (1) Chest pain Code(s): R07.9 - CHEST PAIN, UNSPECIFIED Status: Acute (2) Sick sinus syndrome Code(s): I49.5 - SICK SINUS SYNDROME Status: Chronic Comment: s/p pacemaker placement (3) Hypertension Code(s): I10 - ESSENTIAL (PRIMARY) HYPERTENSION Status: Chronic (4) Hypothyroidism Code(s): E03.9 - HYPOTHYROIDISM, UNSPECIFIED Status: Chronic - Plan * Chest pain- ? etiology- beginning to suspect this is GI related. Possibly a mild pancreatitis due to gallbladder disease- will discuss with GI * Pericardial effusion- discussed with Dr. Flores. She does not have Tamponade physiology. Will likely observe and treat conservatively. May also have CV- surgery involved only as a precaution. * HTN- blood pressure remain on the lower side * Dysuria symptoms- will check a UA. * Hypothyroidism- stable
[2018-06-26] MEDS: Pantoprazole 40 MG VIAL IVP SCH ×2 (09:31→20:49)
[2018-06-26] MEDS: Amiodarone 450 MG in Dextrose 5% in Water 250 ML IVPB SCH (09:31)
--- NOTE | 2018-06-26 10:32 | PRG ---
DATE OF SERVICE: 06/26/2018 SUBJECTIVE: The patient feels somewhat better. She is eager to start eating again. OBJECTIVE: VITAL SIGNS: Temperature is 98.1 with a T-max of 100.0, pulse 81, respirations 20, O2 saturation 98% on 4 L, and blood pressure 99/59. HEENT: Shows no abnormalities. NECK: No JVD. LUNGS: Clear anteriorly. CARDIAC: S1 and S2, regular. ABDOMEN: Some mild tenderness in the left upper quadrant. EXTREMITIES: No edema. LABORATORY DATA: White blood cell count 10.3, hematocrit 28.6, and platelet count 134. Sodium 138, potassium 4.2, BUN 27, creatinine 1.0, glucose 105, AST 359, and ALT 417. ASSESSMENT: 1. Transient hypotension that seems to have resolved. 2. Some component of shock liver. 3. Sick sinus syndrome, requiring pacemaker placement. PLAN: She is continuing IV antibiotics. Her EGD was apparently clear yesterday. The etiology of left upper quadrant abdominal pain appears to be secondary to some mild pancreatitis. We will follow. Job ID: [id number]
--- NOTE | 2018-06-26 11:19 | PQF ---
CLINICAL DOCUMENTATION IMPROVEMENT CLARIFICATION FORM: ICD-10 Updated PLEASE DO AN ADDENDUM TO THE PROGRESS NOTE WITH ANY DOCUMENTATION UPDATES OR ADDITIONS AND CARRY THROUGH TO DC SUMMARY. THANK YOU. DATE: 06/26/18 ATTN : DR. GRAG Please exercise your independent, professional judgment in responding to the clarification form. Clinical indicators are provided on the bottom of this form for your review Please check appropriate box(es): [ X Sepsis due to: (Pna, UTI, gangrenous gall bladder, etc.) ____acalculous cholecystitis Due to: [ ] Device (please specify) [ ] Implant [ ] Graft [ ] Infusion [ ] Severe sepsis with acute organ dysfunction of: (Examples: respiratory failure, encephalopathy, acute kidney failure, other) [ ] Septic Shock [ ] Localized infection without sepsis [ ] Other diagnosis [ ] Unable to determine In addition, please specify: Present on Admission (POA): [X ] Yes [ ] No [ ] Unable to determine For continuity of documentation, please document condition throughout progress notes and discharge summary. Thank You. CLINICAL INDICATORS - SIGNS / SYMPTOMS / LABS EVENT NOTE: "PATIENT WENT INTO SEPTIC SHOCK" BP 85/63 WBC 06/23 9.3 WBC 06/25 13.6 RISKS: POSSIBLE PANCREATITIS TREATMENT: IV ZOSYN (06/25-06/26) IV FLUIDS (06/25-06/26) IV VANCOMYCIN (06/25-06/26) IV LEVOPHED (STARTED AND STOPPED 06/25) IV DOPAMINE (06/25) CRITICAL CARE MONITORING SAP Virologist [employer] Winform Viewer (This form is maintained as a part of the permanent medical record) 2014 [email or web address]. All Rights Reserved [email or web address] Office: [phone] [facility]
--- NOTE | 2018-06-26 11:34 | PQF ---
CLINICAL DOCUMENTATION IMPROVEMENT CLARIFICATION FORM: ICD-10 Updated PLEASE DO AN ADDENDUM TO THE PROGRESS NOTE WITH ANY DOCUMENTATION UPDATES OR ADDITIONS AND CARRY THROUGH TO DC SUMMARY. THANK YOU. DATE: 06/26/18 ATTN: DR. MITCHELL Please exercise your independent, professional judgment in responding to the clarification form. Clinical indicators are provided on the bottom of this form for your review Please check appropriate box(s) to clarify if the following diagnosis has been ruled in or ruled out: "PNEUMONIA" [ ] Ruled in diagnosis [ ] Continue to treat [ ] Resolved [ ] Ruled out diagnosis [ x] Cannot rule out diagnosis [ ] Other diagnosis [ ] Unable to determine In addition, please specify: Present on Admission (POA): [ ] Yes [x ] No [ ] Unable to determine For continuity of documentation, please document condition throughout progress notes and discharge summary. Thank You. CLINICAL INDICATORS - SIGNS / SYMPTOMS / LABS ER NOTE: "DIFFERENTIAL DIAGNOSIS: PNEUMONIA" CONSULTATION REPORT 06/25: "PNEUMONIA NEEDS TO BE IN THE DIFFERENTIAL ALSO THE APPEARANCE OF THE CHEST XRAY" "THE X-RAY SHOWS SOME SUBTLE RIGHT MIDDLE LOBE PERHAPS LEFT LOWER LOBE INFILTRATE CHANGES." WBC 06/23 9.3 WBC 06/25 13.6 RISKS: ADVANCED AGE MULTIPLE COMORBIDITIES TREATMENT: IV ZOSYN (06/25-06/26) IV FLUIDS (06/25-06/26) IV VANCOMYCIN (06/25-06/26) PULMONARY CONSULT CRITICAL CARE MONITORING CHEST XRAY SAP Tabulating Supervisor [employer] Winform Viewer (This form is maintained as a part of the permanent medical record) 2014 [email or web address]. All Rights Reserved [email or web address] Office: [phone] [facility]
--- NOTE | 2018-06-26 12:12 | CON ---
DATE OF CONSULTATION: 06/26/2018 ELECTROPHYSIOLOGY CONSULTATION REFERRING PHYSICIAN: Dr. Rodriguez. HISTORY OF PRESENT ILLNESS: I am seeing Mrs. 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 Her problems are: 1. Pericardial effusion. a. 2D echo on 06/25/2018 demonstrates LVEF of 60% to 65%, mild MR, mild TR, moderate circumferential pericardial effusion without tamponade physiology. b.Transient hypotension, now blood pressure normalizing. 2. Paroxysmal atrial fibrillation associated with rapid rates and hypotension, nowimproved on IV amiodarone. 3. History of sick sinus syndrome, status post pacemaker placement on 06/15/2018 with a [employer] dual-chamber device. 4. History of GERD. 5. Possible gallbladder disease. 6. Possible pancreatitis. 7. History of hyperlipidemia. 8. History of hypothyroidism. ALLERGIES: NONE NOTED. MEDICATIONS: At home include: 1. Namenda. 2. Synthroid. 3. Simvastatin. 4. Plavix. 5. Pantoprazole. 6. Gabapentin. 7. Donepezil. 8. Venlafaxine. 9. Trazodone. 10. Tylenol. SUBJECTIVE: Ms. Reyes was readmitted from rehab on day before yesterday with symptoms of chest discomfort which were somewhat pleuritic in nature. She was diagnosed with pancreatitis with an elevated lipase level. Subsequently, she developed transient atrial fibrillation with hypotension, nausea, vomiting, fevers and chills were seen. She was transferred to ICU on Levop[facility]. There, amiodarone was started. Subsequently, her heart rates normalized with sinus rhythm returned. Her blood pressure improved. She was transferred out to the ICU. As part of the evaluation, an echocardiogram did reveal moderate sized pericardial effusion without tamponade physiology. Currently, she is feeling better. Chest pains are improved. She denies PND or orthopnea. Still does have some mild dyspnea on ambulation. No more palpitations. No stroke-like symptoms. No neurological deficits. Rest of 12-point system otherwise unremarkable. PAST MEDICAL HISTORY: As above. PAST SURGICAL HISTORY: Significant for a pacemaker placement on June 15, 2018, at that point, no recognized complications were noted. SOCIAL HISTORY: The patient denies smoking, EtOH, or drug abuse. FAMILY HISTORY: Not contributory. OBJECTIVE DATA: VITAL SIGNS: Blood pressure is 99/59, heart rate is 71, respiratory rate is 20. The patient is afebrile. Temperature is 100 degrees Fahrenheit, T-max. GENERAL: Alert and oriented woman, in no apparent distress. NECK: Supple. Jugular veins slightly distended. CHEST: Coarse without crackles. HEART: Sounds are regular to rate and rhythm. No murmur or gallop. ABDOMEN: Benign. Bowel sounds positive. EXTREMITIES: Lower extremities without edema, clubbing, or cyanosis. Pulses are adequate. NEUROLOGIC: The patient is nonfocal. MUSCULOSKELETAL: Without joint swelling or deformity. SKIN: Without rash. DATABASE: EKG is reviewed. Initial EKG revealed sinus rhythm with PACs and occasional PVCs. Intermittent atrial pacing is also noted. Subsequent EKG and telemetry revealed development of atrial fibrillation. Then finally normalization of the rhythm is seen. LABORATORY DATA: White count is 10.3, hemoglobin 9.2, platelet count is 134 today. Initial hemoglobin was 11.5. Sodium 138, potassium 4.2, BUN is 27, creatinine 1. AST initially 38, now 359. ALT was 42, then 417. Troponin levels are normal. BNP on presentation 229. The lipase initially 451, then reduced to 88 and then 25, improving trend. The TSH is in normal range. ASSESSMENT AND PLAN: Ms. Reyes is a very pleasant 88-year-old woman with history of sick sinus syndrome with significant symptoms prompting a dual-chamber pacemaker implantation by me about 12 days ago. She had no obvious issues post pacemaker implant and was discharged, but now returning with a right-sided atypical chest pains and fevers and chills. The microbiology is suggestive of one out of two alpha-hemolytic Streptococcus and also elevated lipase levels. She underwent GI evaluation to rule out calculus pancreatitis/cholecystitis. EGD though was otherwise unremarkable. She was noted to have a moderate pericardial effusion by echocardiogram, albeit no tamponade physiology was noted on this. She developed atrial fibrillation with rapid rates with concomitant hypotension, but with amiodarone administration, her rate improved and her blood pressure is also returned to normal. My impression is: 1. Moderate pericardiac effusion without tamponade physiology with improving hemodynamics. It is not clear whether the effusion is a direct complication of the pacemaker placement versus a pre-existing possible pericarditis process is right to this effusion. The dilemma whether to proceed with evacuation of fluid or treat her conservative. Hence, the other comorbidities and improving hemodynamics at this point, I would opt for conservative management, but we will consult surgery in case further intervention will become necessary. Follow up echocardiogram also advised. 2. Bacteremia, one out of two strep group A from blood culture. It is unclear whether it is contaminant or not, possible continued antibiotic would be reasonable, currently on Piperacillin and tazobactam IV. 3. Paroxysmal atrial fibrillation, now well suppressed with amiodarone. At this point, continue that. 4. Elevated lipase level, improving trend, possibly resolving pancreatitis. 5. Elevated liver enzymes. I suspect due to poor liver perfusion due to hypotensive spells, hopefully improve. Monitor while on amiodarone. 6. History of sick sinus syndrome, status post dual-chamber pacemaker placement. We will interrogate the pacemaker function. Job ID: [id number] MTDD
[2018-06-26 12:55] LABS: Bilirubin Negative (Negative); Blood, Urine Large (Negative); Clarity CLOUDY (Clear); Glucose, Urine (Dipstick) Negative (Negative); Leukocyte Small (Negative); Nitrite Negative (Negative); Protein, Urine (Dipstick) 30 mg/dL (Neg-Trace); Specific Gravity, Urine 1.016 (1.002-1.036); pH, Urine 5.5 (5.0-9.0)
[2018-06-26 13:01] LABS: Hyaline Casts/LPF 7-10 HYALINE CAST LPF (0-3 Hyaline); Pathc Cast-AUWi Flag 2.03 (0-2.49); RBC/HPF GREATER THAN 50-TNTC HPF (0-3); Squamous Epithelial 0-3 HPF (0-3)
[2018-06-26 13:19] LABS: Bacteria/HPF 1+ HPF (None Seen); Crystals/HPF 2+ URIC ACID HPF (Negative)
[2018-06-26 13:20] LABS: Renal Epithelial None Seen HPF (0-3); Transitional Epithelial NONE SEEN HPF (0-3)
[2018-06-26] MEDS: Fentanyl 100 MCG/2 ML VIAL SLOW IVP PRN (17:16)
--- NOTE | 2018-06-26 18:12 | PRG ---
DATE OF SERVICE: 06/26/2018 SUBJECTIVE: Ms. Reyes is feeling better today. She has had no fever or chills. She is tolerating a diet. OBJECTIVE: VITAL SIGNS: Temperature is 98, blood pressure 133/56. ABDOMEN: Soft, nontender. There is no rebound. There is no guarding. EXTREMITIES: There is no clubbing, cyanosis, or edema. LABORATORY STUDIES: White count 10.3, hemoglobin 9.2, platelet count 134. BUN and creatinine are 27 and 1.0. Electrolytes are normal. AST and ALT did jump to 359 and 417 with bilirubin of 0.6, alkaline phosphatase of 48. Microbiology showed gram-positive cocci in one blood culture, alpha hemolytic strep in the other, which is contaminant. Urine cultures were negative. UA showed red blood cells, few white blood cells, 1+ bacteria. Lipase is normal. ASSESSMENT: 1. Admission with right upper quadrant abdominal pain and mildly elevated lipase and inflammation on pancreas on admission. There was concern that maybe this was duodenitis or duodenal ulcer. EGD yesterday was normal. With regard to her right upper quadrant pain, it quickly resolved. A HIDA scan was negative with filling of the gallbladder being present and no signs of the acute acalculous cholecystitis. The ejection fraction was recorded as 1%. However, this could be a focus of chronic acalculous cholecystitis. 2. History of cardiac arrhythmias, status post pacemaker placement with some small pericardial effusion. 3. Elevation of liver enzymes consistent with shock liver. RECOMMENDATIONS: We would consider surgical consultation tomorrow regarding her gallbladder as could be the source for all this. She had right upper quadrant pain, right-sided chest pain, and some inflammation in the right upper quadrant. Alternatively, this could all be related to hypotension and transient ischemia by the pancreas and liver. She has significant cardiac disease. This may be more likely neck. RECOMMENDATIONS: We will check liver function tests again tomorrow. Lipase, continue to follow. She seems to be improved. She has no right upper quadrant tenderness at this time and does not need any type of emergency surgery. Continue on her Zosyn and vancomycin until cultures are final. Job ID: [id number]
[2018-06-27] MEDS: Piperacillin/Tazobactam 4.5 GM in Sodium Chloride 0.9% 100 ML IVPB SCH ×3 (01:32→17:24)
[2018-06-27 05:46] LABS: #Eosinphils 0.1 thou/uL (0.0-0.7); #Lymphocytes 1.2 thou/uL (1.20-3.40); #Monocytes 0.9 thou/uL (0.11-0.59); %Basophils 0.3 % (0.0-1.0); %Eosinophils 1.7 % (0.0-10.0); %Lymphocytes 14.3 % (21.0-51.0); %Monocytes 10.9 % (0.0-10.0); %Neutrophils 72.7 % (42.0-75.0); Hemoglobin 8.9 g/dL (12.0-16.0); Mean Corpuscular HGB CONC 32.5 g/dL (32.0-36.0); Mean Corpuscular Hemoglobin 32.4 pg (27.0-31.0); Mean Corpuscular Volume 99.8 fL (78.0-98.0); Mean Platelet Volume 8.8 fL (7.4-10.4); Platelet Count 162 thou/uL (130-400); RBC Distribution Width 11.6 % (11.5-14.5); Red Blood Cell (RBC) Count 2.74 mill/uL (4.20-5.40); White Blood Cell (WBC) Count 8.3 thou/uL (4.8-10.8)
[2018-06-27 05:55] LABS: Anion Gap 8 mmol/L (10-20); BUN (Urea Nitrogen) 19 mg/dL (9.8-20.1); Calc. Creatinine Clearance 56 mL/min (70-130); Calcium 8.4 mg/dL (7.8-10.44); Carbon Dioxide 24 mmol/L (23-31); Chloride 112 mmol/L (98-107); Estimated GFR-MDRD 61; Glucose 87 mg/dL (83-110); Potassium 3.9 mmol/L (3.5-5.1); Sodium 140 mmol/L (136-145)
[2018-06-27 05:58] LABS: ALT (SGPT) 291 U/L (8-55); AST (SGOT) 161 U/L (5-34); Alkaline Phosphatase 50 U/L (40-150); Bilirubin, Direct 0.2 mg/dL (0.1-0.3); Bilirubin, Total 0.4 mg/dL (0.2-1.2); Protein, Total 5.3 g/dL (6.0-8.3)
[2018-06-27 06:06] LABS: Vancomycin, Trough 6.9 ug/mL
[2018-06-27] MEDS: Vancomycin HCl 1 GM in Premix Bag 1 BAG IVPB SCH (06:20)
[2018-06-27] MEDS: Pantoprazole 40 MG VIAL IVP SCH (09:03)
[2018-06-27] MEDS: Amiodarone 200 MG TAB PO SCH ×2 (09:03→21:36)
[2018-06-27] MEDS: Sodium Chloride 0.9% 1,000 ML IV SCH (09:08)
--- NOTE | 2018-06-27 09:43 | PDOC.PN ---
- Subjective Encounter Start Date: 06/27/18 Encounter Start Time: 09:40 Ms. Reyes was seen today in follow-up of Right sided chest pain. She says she is feeling much better. She was able to eat without difficulty or pain. She denies feeling short of breath. She denies any nausea or vomiting. She does not some redness and soreness in the right eye. She notes some matting and crusting in that eye as well. - Objective Resuscitation Status - Order Detail: 06/24/18 01:29 Resuscitation Status Routine Co-Sign Provider: Resuscitation Status: FULL: Full Resuscitation Discussed with: Patient and daughter COOPER Reviewed: Yes Vital Signs & Weight: Vital Signs (12 hours) Temp Pulse Resp BP Pulse Ox 06/27/18 08:00 96 06/27/18 03:36 98.5 F 64 20 124/67 93 L Weight Weight 184 lb 8 oz Most Recent Monitor Data Heart Rate from ECG 90 NIBP 104/72 NIBP BP-Mean 82 Respiration from ECG 23 SpO2 97 I&O: 06/26/18 06/27/18 06/28/18 06:59 06:59 06:59 Intake Total 1407 3755 Output Total 413 1625 Balance 994 2130 Result Diagrams: 06/27/18 04:57 06/27/18 04:57 Phys Exam - Physical Examination HEENT: PERRLA + erythema and crusting in the right eye Respiratory: no rales, no rhonchi, wheezing present, clear to auscultation bilateral Cardiovascular: RRR, no significant murmur, no rub Gastrointestinal: soft, non-tender, no distention, positive bowel sounds Musculoskeletal: pulses present, edema present Dx/Plan (1) Chest pain Code(s): R07.9 - CHEST PAIN, UNSPECIFIED Status: Acute (2) Sick sinus syndrome Code(s): I49.5 - SICK SINUS SYNDROME Status: Chronic Comment: s/p pacemaker placement (3) Hypertension Code(s): I10 - ESSENTIAL (PRIMARY) HYPERTENSION Status: Chronic (4) Hypothyroidism Code(s): E03.9 - HYPOTHYROIDISM, UNSPECIFIED Status: Chronic - Plan * Conjunctivitis- will add erythromycin ointment * Strep Oralis/mitis bacteremia- she has 2/2 blood cultures which are positive- These organisms have been known to cause Endocarditis- will consult ID for evaluation * Possible Acalculous Cholecystitis- discussed with Dr. Saba- She has improved over the past 2 days, and has been tolerating an oral diet. Due to her advanced age, and co-morbid medical conditions, I agree with Holding off on Surgical Evaluation at this time * Hypotension- her blood pressure is beginning to recover * Sick Sinus Syndrome- s/p recent pacemaker- stable.
[2018-06-27] MEDS ORDERED: Vancomycin HCl 500 MG in Sodium Chloride 0.9% 100 ML IVPB SCH (09:45)
--- NOTE | 2018-06-27 10:21 | PRG ---
DATE OF SERVICE: 06/27/2018 SUBJECTIVE: Ms. Reyes is sitting in bed comfortably. She has had breakfast. She is getting cleaned up now. OBJECTIVE: VITAL SIGNS: She has been afebrile. T-max was 100 on the , it is 98.5 now; pulse 64; blood pressure 124/67. She is alert and oriented to person, place, and time. ABDOMEN: Soft and nontender. There is no rebound. There is no guarding. LABORATORY DATA: White count is 8.3, hemoglobin 8.9, platelet count is 162. Her hemoglobin on 06/15 was 13. Her hemoglobin on 06/24 was 10.8. Chemistries; BUN and creatinine are 19 and 0.87. Bilirubin is 0.4. AST and ALT are down to 161 and 291. Urine yesterday again revealed multiple white blood cells. Microbiology; urine culture is negative, blood cultures showed Streptococcus mitis/oralis in 2 bottles. ASSESSMENT: 1. Admission with sepsis like syndrome with hypotension on presentation, unclear etiology. Initially, it was thought to be possibly a component of pancreatitis as there was inflammation in the pancreas on CAT scan. She also had elevated lipase. There was concern that possibly there was duodenal lesion leading to this. The EGD was normal. The lipase rapidly dropped from 451 to 88 and then 33 yesterday. Etiology of her pancreatitis is unclear. We did do a HIDA scan to rule out acute acalculous cholecystitis as there was some questionable thickening or sludge around the gallbladder on the CAT scan and she had recently had multiple cardiac interventions; however, on that study, the gallbladder did feel ruling out acute acalculous cholecystitis. An ejection fraction was performed, which was very low. The significance of that is unclear as she is eating well with no right upper quadrant abdominal pain and no abdominal complaints. I would not proceed with cholecystectomy at this time. I would observe her. 2. Streptococcus mitis in 2 blood culture bottles. This is being worked up. Considerations for endocarditis are being thought of as the patient did have cardiac intervention with pacemaker placed last week and had a pericardial effusion on admission. 3. Transient elevation of liver function tests yesterday, now coming back down. This was felt to be a component of shock liver. She was very hypotensive on the day of admission. PLAN: Agree with continued broad-spectrum antibiotics. Agree with ID consult. We will hold off on Surgery consult at this point in time. We will continue to evaluate the patient and follow along with you. Job ID: [id number]
[2018-06-27] MEDS: Erythromycin Base 0.5% Oint 1 GM TUBE R EYE SCH ×2 (10:43→21:37)
--- NOTE | 2018-06-27 12:47 | PDOC.CTH ---
Cardiology Progress Note - Subjective No complaints. Resting comfortably. - Objective Vital Signs Temp Pulse Resp BP Pulse Ox 06/27/18 08:00 96 06/27/18 03:36 98.5 F 64 20 124/67 93 L Weight 184 lb 8 oz 06/26/18 06/27/18 06/28/18 06:59 06:59 06:59 Intake Total 1407 3755 Output Total 413 1625 Balance 994 2130 - Physical Examination General/Neuro: alert & oriented x3 Neck: no JVD present Lungs: CTA Heart: other: (IRR) Abdomen: NT/ND - Telemetry Telemetry Rhythm: AF; intermittent pacing - Labs Result Diagrams: 06/27/18 04:57 06/27/18 04:57 Troponin/CKMB Troponin I 0.013 ng/mL (< 0.028) 06/24/18 01:57 - Assessment/Plan 1. Paroxysmal AF 2. pericardial effusion 3. s/p pacer 4. s/p septic shock 5. Elevated LFTs 6. HTN No changes to care. Continue po Amio. Patient remains in AF, but rate- controlled. Continue antibiotics. Pt seen and exaimned. No complaints. On Abx. Echo reviewed. Effusion appears mild t moderate. Hemodynamically stable
[2018-06-27] MEDS: Fentanyl 100 MCG/2 ML VIAL SLOW IVP PRN (15:47)
[2018-06-27] MEDS ORDERED: Furosemide 40 MG/4 ML VIAL SLOW IVP SCH (20:30)
--- NOTE | 2018-06-27 20:30 | PRG ---
DATE OF SERVICE: 06/27/2018 SERVICE: Pulmonary Medicine. INTERVAL HISTORY: The patient has had a pretty rough day. She is having increasing shortness of breath and dyspnea with exertion. On two occasions today, she was eating. She was eating some dry food and got choked up the back of her throat. After she was able to relieve this obstruction, she ended up taking a sip of some water and once again started having a hacking spell. She has had a history of esophageal strictures, requiring occasional dilation. Last one has been a while. There has been an increasing problem for a short period of time. She is also having some discomfort in her bladder. Whenever she feels like she needs to pee, she has to hold down on her bladder. That being said, she has a Richards catheter in place that is functioning. She denies any current fevers or chills. Otherwise, there has been no interval change to her condition. PHYSICAL EXAMINATION: VITAL SIGNS: Afebrile, pulse 82, blood pressure 115/75, respirations 18, and saturation 98% on 2 L nasal cannula. GENERAL: The patient is awake and alert. She is in mild respiratory distress. HEENT: Normocephalic and atraumatic. Sclerae white. Conjunctivae pink. Oral mucosa is moist without lesions. LUNGS: Decent air entry. There is a prolonged expiratory phase, but I do not hear any wheezing. She has transmitting some air sounds from upper airway. Dependent crackles are noted. No rhonchi. HEART: Normal rate and regular. ABDOMEN: Soft, nontender, and nondistended. Bowel sounds are positive. MUSCULOSKELETAL: No cyanosis or clubbing. There is no pitting in the bilateral lower extremities. NEUROLOGIC: Grossly nonfocal. LABORATORY DATA: WBC 8.3, hemoglobin 9.8, and platelets 162,000 and roughly stable. Neutrophil count is normal. Chloride 112, sodium 140. Basic metabolic profile is otherwise unremarkable. AST and ALT are downtrending. Urinalysis is positive for red blood cells, but no significant pyuria is present. This was performed yesterday. Vancomycin trough was 6.9. Blood cultures x2 are growing alpha-hemolytic Streptococcus/Streptococcus oralis. Urine culture is negative at 36 hours so far. ASSESSMENT: 1. Acute hypoxic respiratory failure. 2. Bacteremia, secondary to Streptococcus. 3. Sick sinus syndrome, status post pacemaker placement. 4. Oropharyngeal dysphagia. DISCUSSION AND PLAN: We will continue our empiric antibiotics. I will make the patient n.p.o. And place a Speech-Pathology consultation. IV fluids will be interrupted. I will give her a dose of Lasix. We will give her a little bit of free water over the next 24 hours. Nebulized medications will be introduced. Pulmonary will continue to follow while the patient remains in this location. If she deteriorates further, we may need to consider escalating care. Job ID: [id number]
[2018-06-27] MEDS ORDERED: Phenazopyridine HCl 97.5 MG TABLET PO PRN (21:35)
[2018-06-27] MEDS: Dextrose 5% in Water 1,000 ML IV SCH (21:36)
[2018-06-27] MEDS: Donepezil HCl 10 MG TAB PO SCH (21:36)
[2018-06-27] MEDS: Gabapentin 300 MG CAP PO SCH (21:37)
[2018-06-28] MEDS: Piperacillin/Tazobactam 4.5 GM in Sodium Chloride 0.9% 100 ML IVPB SCH ×3 (02:47→17:50)
[2018-06-28 05:48] LABS: #Eosinphils 0.1 thou/uL (0.0-0.7); #Lymphocytes 1.1 thou/uL (1.20-3.40); #Monocytes 0.9 thou/uL (0.11-0.59); %Basophils 0.3 % (0.0-1.0); %Eosinophils 2.1 % (0.0-10.0); %Lymphocytes 15.3 % (21.0-51.0); %Monocytes 11.8 % (0.0-10.0); %Neutrophils 70.5 % (42.0-75.0); Hemoglobin 9.1 g/dL (12.0-16.0); Mean Corpuscular HGB CONC 32.1 g/dL (32.0-36.0); Mean Corpuscular Hemoglobin 31.7 pg (27.0-31.0); Mean Corpuscular Volume 98.7 fL (78.0-98.0); Mean Platelet Volume 8.1 fL (7.4-10.4); Platelet Count 203 thou/uL (130-400); RBC Distribution Width 11.7 % (11.5-14.5); Red Blood Cell (RBC) Count 2.88 mill/uL (4.20-5.40); White Blood Cell (WBC) Count 7.2 thou/uL (4.8-10.8)
[2018-06-28] MEDS ORDERED: Furosemide 40 MG/4 ML VIAL SLOW IVP SCH (06:00)
[2018-06-28] MEDS ORDERED: Vancomycin HCl 1.5 GM in Sodium Chloride 0.9% 250 ML 300 ML IVPB SCH (06:00)
[2018-06-28 06:08] LABS: Anion Gap 12 mmol/L (10-20); BUN (Urea Nitrogen) 17 mg/dL (9.8-20.1); Calc. Creatinine Clearance 56 mL/min (70-130); Calcium 8.4 mg/dL (7.8-10.44); Carbon Dioxide 26 mmol/L (23-31); Chloride 111 mmol/L (98-107); Estimated GFR-MDRD 58; Glucose 98 mg/dL (83-110); Potassium 3.3 mmol/L (3.5-5.1); Sodium 146 mmol/L (136-145)
[2018-06-28] MEDS: Amiodarone 200 MG TAB PO SCH ×2 (11:53→20:31)
[2018-06-28] MEDS: Erythromycin Base 0.5% Oint 1 GM TUBE R EYE SCH ×2 (11:55→20:49)
--- NOTE | 2018-06-28 13:35 | PDOC.CTH ---
Cardiology Progress Note - Subjective No overnight events. Remains in AF with intermittent v-pacing. - Objective Vital Signs Temp Pulse Resp BP Pulse Ox 06/28/18 10:30 99 06/28/18 09:45 98 F 86 20 91/65 99 06/28/18 07:57 84 12 06/28/18 04:01 98 F 70 18 103/55 L 100 Weight 179 lb 8 oz 06/27/18 06/28/18 06/29/18 06:59 06:59 06:59 Intake Total 3755 1620 Output Total 1625 5025 Balance 2130 -3405 - Physical Examination General/Neuro: other: (alert and awake) Neck: no JVD present Heart: other: (IRR) Abdomen: NT/ND - Telemetry Telemetry Rhythm: AF - Labs Result Diagrams: 06/28/18 05:14 06/28/18 05:14 Troponin/CKMB Troponin I 0.013 ng/mL (< 0.028) 06/24/18 01:57 - Assessment/Plan 1. Paroxysmal AF 2. pericardial effusion 3. s/p pacer 4. s/p septic shock 5. Elevated LFTs 6. HTN Stable. No changes to care. Continue Amio. Dr. Rodriguez back tomorrow to resume care.
--- NOTE | 2018-06-28 14:10 | PDOC.PN ---
- Subjective Encounter Start Date: 06/28/18 Encounter Start Time: 10:00 Ms. Reyes was seen today in follow-up of chest pain. She says she is breathing better. She denies having any pain today. She had an episode of chocking last night, and has been evaluated by speech therapy. - Objective Resuscitation Status - Order Detail: 06/24/18 01:29 Resuscitation Status Routine Co-Sign Provider: Resuscitation Status: FULL: Full Resuscitation Discussed with: Patient and daughter COOPER Reviewed: Yes Vital Signs & Weight: Vital Signs (12 hours) Temp Pulse Resp BP Pulse Ox 06/28/18 10:30 99 06/28/18 09:45 98 F 86 20 91/65 99 06/28/18 07:57 84 12 06/28/18 04:01 98 F 70 18 103/55 L 100 Weight Weight 179 lb 8 oz Most Recent Monitor Data Heart Rate from ECG 90 NIBP 104/72 NIBP BP-Mean 82 Respiration from ECG 23 SpO2 97 I&O: 06/27/18 06/28/18 06/29/18 06:59 06:59 06:59 Intake Total 3755 1620 Output Total 1625 5025 Balance 2130 -3405 Result Diagrams: 06/28/18 05:14 06/28/18 05:14 Phys Exam - Physical Examination HEENT: PERRLA Respiratory: no wheezing, no rales, no rhonchi, clear to auscultation bilateral Cardiovascular: RRR, no significant murmur, no rub Gastrointestinal: soft, non-tender, no distention, positive bowel sounds Musculoskeletal: pulses present, edema present trace pedal edema Neurological: non-focal Dx/Plan (1) Acalculous cholecystitis Code(s): K81.9 - CHOLECYSTITIS, UNSPECIFIED Status: Acute (2) Chest pain Code(s): R07.9 - CHEST PAIN, UNSPECIFIED Status: Resolved Comment: due to mild pancreattis from acalculous cholecystitis (3) Sick sinus syndrome Code(s): I49.5 - SICK SINUS SYNDROME Status: Chronic Comment: s/p pacemaker placement (4) Hypertension Code(s): I10 - ESSENTIAL (PRIMARY) HYPERTENSION Status: Chronic (5) Hypothyroidism Code(s): E03.9 - HYPOTHYROIDISM, UNSPECIFIED Status: Chronic - Plan * Chest pain- resolved * Acalculous Cholecystitis- her symptoms have resolved, will manage conservatively * Strep Mitis/oralis bacteremia- continue IV antibiotics, and await ID input * Sick Sinus Syndrome- stable- post pacemaker placement * HTN- blood pressure is low normal.
--- NOTE | 2018-06-28 17:41 | PRG ---
DATE OF SERVICE: 06/28/2018 SERVICE: Pulmonary Medicine. INTERVAL HISTORY: The patient is doing really well from respiratory standpoint. Yesterday, she had a breathing fit. We gave her a dose of Lasix, a little bit of free water, and nebulized medications. She really settled down beautifully. She cannot provide any additional elements of the history right now, but last night, she slept very soundly. There has been no interval change to her condition. She was cleared for swallowing by Speech. They modified her diet slightly in order to decrease the risk. PHYSICAL EXAMINATION: VITAL SIGNS: Afebrile. Pulse 74, blood pressure 112/68, respirations 16, and saturation 100% on 2 L nasal cannula. GENERAL: The patient is awake and alert, in no apparent distress. LUNGS: Decent air entry. There are dependent crackles present. There is slightly prolonged expiratory phase. Minimal wheezing is present. Rhonchi are present. They poorly clear with cough. HEART: Normal rate, regular. ABDOMEN: Soft, nontender, and nondistended. Bowel sounds are positive. MUSCULOSKELETAL: No cyanosis or clubbing. There is no pitting in the bilateral lower extremities. NEUROLOGIC: Grossly nonfocal. LABORATORY DATA: WBC 7.2, hemoglobin 9.1, and platelets 203,000. Potassium 3.3, sodium 146. Basic metabolic profile is otherwise unremarkable. Vancomycin trough is 6.9. Blood cultures x2 are growing Streptococcus. Urine culture is negative to date. ASSESSMENT: 1. Acute hypoxic respiratory failure, improving. 2. Bacteremia secondary to Streptococcus. 3. Sick sinus syndrome, status post pacemaker placement. 4. Oropharyngeal dysphagia with aspiration event. DISCUSSION AND PLAN: We will continue with nebulized medications. I will continue the free water. We will back off the Lasix. Potassium will be replaced. Pulmonary Critical Care will continue to follow along. Dr. Ramos will resume coverage in the morning. Job ID: [id number]
--- NOTE | 2018-06-28 18:29 | PRG ---
DATE OF SERVICE: 06/28/2018 SUBJECTIVE: Ms. Reyes is sitting in bed. She has just eaten. Her daughter notes she has eaten well without difficulty. Talked with Dr. Dumont. Apparently yesterday, she had some dysphagia and choked on fish sandwich. He made her n.p.o. at that time, was never evaluated by speech pathology. However, today, she has no complaints about her swallowing whatsoever. She denies abdominal pain. OBJECTIVE: VITAL SIGNS: Temperature is 99, T-max was 100 on 06/25, pulse is 74, blood pressure 112/68. LUNGS: Clear. HEART: Regular rate and rhythm. ABDOMEN: Soft and nontender. EXTREMITIES: There is no clubbing, cyanosis, or edema. LABORATORY STUDIES: Blood cultures grew out Strep mitis. Urine Klebsiella was negative. White count 7.2, hemoglobin 9.1, platelet count 203. Sodium 146, potassium 3.3, BUN and creatinine are 17 and 0.92. Urine with greater than 50 white blood cells, 1+ bacteria on admission. ASSESSMENT AND PLAN: 1. Transient oropharyngeal dysphagia. I feel like she had a sandwich stuck yesterday and was unable to really handle secretions or drinking liquids for that time, then was able to. She states this happened in the remote past, but not recently. She states once dilated her esophagus before, but I see no record that here in the hospital after looking at her records from our office to see if there is anything there about that. Presently, she is having no problems. Speech pathology is going to evaluate her. I see no notes from them yet, but at this time, her daughter said she ate her dinner with no problem. I think she can go ahead and continue to eat. 2. With regard to her initial presentation, it is unclear what the source for Strep mitis is. She really had no upper respiratory symptoms and really presented with right upper quadrant pain initially, she has had a pacemaker placed recently however as well. 3. With regard to the pancreatitis, low-grade, lipase is around 400, that is resolved. She did have some pancreatic inflammatory changes on CT, but had normal liver function tests. The etiology of the pancreatitis is unclear. She did have a HIDA scan with only 1% ejection fraction, but no signs of acute cholecystitis at this point in time. I do not know if there any role for cholecystectomy with no gallstone seen on that study, although we consider that if she continues to improve, I think I will go ahead and treat her bacteremia first, however, as there is no urgency to proceed with any other invasive procedures. 4. She did have a transient elevation in AST and ALT after admission on hospital day 2. This is felt related to her relative hypotension and sepsis on admission. It was coming down by yesterday. We will recheck these tomorrow. Job ID: [id number]
[2018-06-28] MEDS: Gabapentin 300 MG CAP PO SCH (20:32)
[2018-06-28] MEDS: Donepezil HCl 10 MG TAB PO SCH (20:32)
[2018-06-28] MEDS: Dextrose 5% in Water 1,000 ML IV SCH (20:49)
[2018-06-28] MEDS: traZODone HCl 50 MG TAB PO PRN (20:50)
[2018-06-29] MEDS: Piperacillin/Tazobactam 4.5 GM in Sodium Chloride 0.9% 100 ML IVPB SCH ×2 (02:59→10:30)
[2018-06-29 05:33] LABS: Anion Gap 12 mmol/L (10-20); BUN (Urea Nitrogen) 13 mg/dL (9.8-20.1); Calc. Creatinine Clearance 52 mL/min (70-130); Calcium 8.6 mg/dL (7.8-10.44); Carbon Dioxide 29 mmol/L (23-31); Chloride 108 mmol/L (98-107); Estimated GFR-MDRD 55; Glucose 100 mg/dL (83-110); Potassium 3.8 mmol/L (3.5-5.1); Sodium 145 mmol/L (136-145)
[2018-06-29 05:36] LABS: ALT (SGPT) 178 U/L (8-55); AST (SGOT) 66 U/L (5-34); Alkaline Phosphatase 50 U/L (40-150); Bilirubin, Direct 0.2 mg/dL (0.1-0.3); Bilirubin, Total 0.4 mg/dL (0.2-1.2); Protein, Total 5.5 g/dL (6.0-8.3)
[2018-06-29 05:54] LABS: #Eosinphils 0.2 thou/uL (0.0-0.7); #Monocytes 0.7 thou/uL (0.11-0.59); #Neutrophils 5.2 thou/uL (1.40-6.50); %Basophils 0.4 % (0.0-1.0); %Eosinophils 3.1 % (0.0-10.0); %Lymphocytes 14.1 % (21.0-51.0); %Monocytes 9.9 % (0.0-10.0); %Neutrophils 72.5 % (42.0-75.0); Hemoglobin 10.1 g/dL (12.0-16.0); Mean Corpuscular HGB CONC 31.7 g/dL (32.0-36.0); Mean Platelet Volume 8.2 fL (7.4-10.4); Platelet Count 243 thou/uL (130-400); RBC Distribution Width 11.9 % (11.5-14.5); RBC Morphology Normal; Red Blood Cell (RBC) Count 3.17 mill/uL (4.20-5.40); White Blood Cell (WBC) Count 7.2 thou/uL (4.8-10.8)
--- NOTE | 2018-06-29 09:28 | PDOC.PN ---
- Subjective Encounter Start Date: 06/29/18 Encounter Start Time: 09:23 Ms. Reyes was seen today in follow-up of cough, acalculous cholecystitis. She says she was doing fine until this morning, when she began having a coughing spell. She is coughing up some clear phlem. She says the pain in her right chest has resolved completely. - Objective Resuscitation Status - Order Detail: 06/24/18 01:29 Resuscitation Status Routine Co-Sign Provider: Resuscitation Status: FULL: Full Resuscitation Discussed with: Patient and daughter COOPER Reviewed: Yes Vital Signs & Weight: Vital Signs (12 hours) Temp Pulse Resp BP Pulse Ox 06/29/18 03:20 98.6 F 76 20 97/61 100 06/29/18 00:47 62 14 99 Weight Weight 179 lb 8 oz Most Recent Monitor Data Heart Rate from ECG 90 NIBP 104/72 NIBP BP-Mean 82 Respiration from ECG 23 SpO2 97 I&O: 06/28/18 06/29/18 06/30/18 06:59 06:59 06:59 Intake Total 1620 800 Output Total 5025 1175 Balance -3405 -375 Result Diagrams: 06/29/18 04:45 06/29/18 04:45 Phys Exam - Physical Examination HEENT: PERRLA Respiratory: wheezing present + rales, Cardiovascular: no rub, irregular Gastrointestinal: soft, non-tender, no distention, positive bowel sounds Musculoskeletal: edema present Dx/Plan (1) Acalculous cholecystitis Code(s): K81.9 - CHOLECYSTITIS, UNSPECIFIED Status: Acute (2) Chest pain Code(s): R07.9 - CHEST PAIN, UNSPECIFIED Status: Resolved Comment: due to mild pancreattis from acalculous cholecystitis (3) Sick sinus syndrome Code(s): I49.5 - SICK SINUS SYNDROME Status: Chronic Comment: s/p pacemaker placement (4) Hypertension Code(s): I10 - ESSENTIAL (PRIMARY) HYPERTENSION Status: Chronic (5) Hypothyroidism Code(s): E03.9 - HYPOTHYROIDISM, UNSPECIFIED Status: Chronic - Plan * Cough with congestion- Will check a chest X-Ray, she is at risk for both edema , and lung infection * Strep mitis/oralis bacteremia- will continue Zosyn for now, and await further recommendations from ID * Atrial Fibrillation- her heart rate has been stable. awaiting further recommendations from Cardiology * HTN- blood pressure is stable
--- NOTE | 2018-06-29 09:29 | PRG ---
DATE OF SERVICE: 06/29/2018 SUBJECTIVE: The patient is doing reasonably well. She has no complaints. OBJECTIVE: VITAL SIGNS: Temperature 98.6, pulse 76, respirations 20, O2 saturation 100% on 3 L, blood pressure 97/61. HEENT: Unremarkable. CARDIAC: S1, S2. Regular. LUNGS: Clear. ABDOMEN: Soft. EXTREMITIES: No edema. ASSESSMENT: 1. Acute hypoxic respiratory failure, which is improved. 2. Bacteremia secondary to Streptococcus. 3. Sick-sinus syndrome. PLAN: She seems to be doing well from Pulmonary standpoint. She can probably be cycled over to oral antibiotics. Pulmonary will follow intermittently. Job ID: [id number]
[2018-06-29] MEDS: Amiodarone 200 MG TAB PO SCH ×2 (10:29→21:28)
[2018-06-29] MEDS: Erythromycin Base 0.5% Oint 1 GM TUBE R EYE SCH ×2 (10:31→21:30)
--- NOTE | 2018-06-29 11:05 | RAD ---
PORTABLE UPRIGHT FRONTAL CHEST RADIOGRAPH: Date: 06/29/18 COMPARISON: 06/25/18. HISTORY: Dyspnea and congestion. FINDINGS: There is a dual lead transvenous pacing device inserted via left subclavian approach. There is new pu lmonary vascular congestion. There is new hazy bibasilar density with partial obscuration of bilatera l hemidiaphragms and blunting of bilateral costophrenic angles. IMPRESSION: Interval development of pulmonary vascular congestion with hazy bibasilar pleural and parenchymal opa city. Findings suggest pulmonary edema. Follow-up imaging following treatment to document resolution advised. Infectious pneumonitis in the lung bases cannot be excluded. POS: CHRISH
--- NOTE | 2018-06-29 14:27 | CON ---
DATE OF CONSULTATION: 06/29/2018 REASON FOR CONSULTATION: Bacteremia. HISTORY OF PRESENT ILLNESS: An 88-year-old who has a history of hyperlipidemia, hypothyroidism, and dementia, and had a recent pacemaker placement in May of 2018 for management of sick sinus syndrome and went to rehab from hospital setting. A few days before admission, she developed a fairly sudden onset of a sharp left anterior chest pain, which she describes as if a vulture had landed on her chest and bitten her anterior chest wall. The pain kept waxing and waning over the next 48 hours. Eventually, she was admitted after she developed tachycardia, fever and tachypnea. Initial evaluation showed a pulse 77, respirations 14, O2 saturation 97%. Lungs are clear. Heart exam is normal. Abdomen is soft. Pacemaker pocket site was normal. She had no abdominal pain. No distention or tenderness. Initial white cell count 9.3, hemoglobin 11, platelets 198, creatinine 0.89. Chest x-ray with interstitial prominence. The patient was given Zosyn after a CT of abdomen demonstrated an area of inflammatory change, right upper quadrant with what appeared to be a mild bowel wall thickening involving the first portion of the duodenum, likely duodenitis. The patient had an EGD, which showed no ulcer, but mild duodenal inflammation, and now have 2 sets of blood cultures positive for Streptococcus mitis-oralis. Currently, Ms. Reyes is feeling better. The pain has resolved. She has no headaches. No visual symptoms, sore throat, odynophagia or dysphagia. No cough or sputum production or chest pain any longer. No abdominal pain. No diarrhea. No genitourinary symptoms. No back pain or joint symptoms. MEDICAL HISTORY: Hyperlipidemia, hypothyroidism, GERD, dementia, sick sinus syndrome with pacemaker placement just a few weeks ago. PAST SURGICAL HISTORY: Cataract operation, hysterectomy. SOCIAL HISTORY: Inpatient rehab recently transferred for management of recent hospital admission. Lives with daughter, otherwise. ALLERGIES: NONE. CURRENT MEDICATIONS: 1. DuoNeb. 2. Amiodarone. 3. Donepezil. 4. Erythromycin. 5. Fentanyl. 6. Memantine. 7. Zosyn. 8. Venlafaxine. PHYSICAL EXAMINATION: VITAL SIGNS: T-max 100, currently 99.6, blood pressure 105/59, pulse 87, respirations 16, O2 saturation 100%. Peripheral IV access and she is voiding with a Richards catheter. I's and O's have been negative in the past 24 hours. GENERAL: Awake and oriented. SKIN EXAM: No areas of skin breakdown. Normal. HEENT: Ocular movements conjugate. Oral cavity with no tolowa dee-ni' teeth remaining. NECK: Supple. LUNGS: Symmetric. Clear breath sounds. BACK: No back tenderness. CHEST: A little bit of tenderness in the anterior chest area, right side. GENITOURINARY: No bladder distention. EXTREMITIES: She has osteoarthrosis of knees, but no acute inflammatory change. Pulses 1+ in dorsalis pedis. No edema. Plantar response are flexor. No clonus. She moves extremities equally. NEUROVASCULAR: Cognitive function appears to be good for self and place orientation, but could not tell me the date. Recollection of events was somewhat limited. LABORATORY DATA: White cell count 9.0 and now 7.2, hemoglobin 10, platelets 243. Sodium 138, creatinine 1.0 and 0.96. AST 359, now 66; ALT 417 and now 178. The bilirubin has been within normal limits. Albumin 3.0. Urinalysis with 7 to 10 WBCs. The patient had an abdominal CT, which showed small to moderate sized pericardial effusion, thickening region of the gastric antrum and pylorus, inflammatory stranding adjacent to the area. Gallbladder was not distended. The pancreas appeared normal. ASSESSMENT: 1. Sick sinus syndrome with recent pacemaker placement. 2. Anterior chest pain with resolution. 3. Streptococcus mitis/oralis bacteremia. 4. Duodenitis. DISCUSSION: Differential diagnosis includes bacteremia from the area of duodenitis versus colonization of the pacemaker lead with endocarditis. The Streptococcus mitis/oralis has a very high incidence of association with endocarditis, so I would advise a YUMIKO to identify possible vegetation. In that case, she would require long-term treatment for endocarditis and even potentially removal of the device. If no vegetations are found, then I would still treat for 4 weeks of Rocephin intravenously, but then, would avoid the removal of the device. Job ID: [id number]
--- NOTE | 2018-06-29 15:00 | PRG ---
DATE OF SERVICE: 06/29/2018 SUBJECTIVE: Ms. Reyes is resting in bed. She is actually taking a little nap. The nurses note that her swallowing has gotten better. She was evaluated at the bedside. Speech Pathology went ahead and put her on some thickening agents. Dr. Schroeder apparently did come see the patient and changed the antibiotic regimen, placed her on amiodarone and placed her on Rocephin and on Protonix. OBJECTIVE: VITAL SIGNS: T-max 100 on and 99.6 on the . LUNGS: Decreased breath sounds at bases. HEART: Regular rate and rhythm. No overt murmurs heard. ABDOMEN: Soft and nontender. LABORATORY DATA: White count 7.2, hemoglobin 10.1, and platelet count 243. AST and ALT are down to 66 and 178. ASSESSMENT AND PLAN: 1. Pancreatitis on admission of unclear etiology. She did have no gallstones, but has had a dilated gallbladder with HIDA scan with a low ejection fraction. Her liver function tests were normal on admission and raised after she came in with sepsis. I think there was apparently a little bit of shock liver. 2. History of oropharyngeal dysphagia. We had scoped her and dilated her in the past in the office. We will need to look at what evaluation was there here. She has been placed on thickened liquids. It was seemed that this was giving her the most problems, although one day a fish sandwich seemed to hang up on her. 3. Bacteremia with Streptococcus mitis. Antibiotics have been changed. She is going to have a transesophageal echocardiogram to evaluate her cardiac valves. We will follow along with you. Job ID: [id number]
[2018-06-29] MEDS: cefTRIAXone\\ROCEPHIN 2 GM in Sodium Chloride 0.9% 100 ML IVPB SCH (15:27)
[2018-06-29] MEDS: Dextrose 5% in Water 1,000 ML IV SCH ×2 (15:27→22:43)
[2018-06-29] MEDS ORDERED: Apixaban 5 MG TAB PO SCH ×2 (21:00)
[2018-06-29] MEDS: Donepezil HCl 10 MG TAB PO SCH (21:28)
[2018-06-29] MEDS: Gabapentin 300 MG CAP PO SCH (21:28)
[2018-06-29] MEDS: Apixaban 2.5 MG TAB PO SCH (21:29)
[2018-06-29] MEDS: traZODone HCl 50 MG TAB PO PRN (21:35)
[2018-06-30 05:03] LABS: #Eosinphils 0.4 thou/uL (0.0-0.7); #Lymphocytes 1.2 thou/uL (1.20-3.40); #Monocytes 0.7 thou/uL (0.11-0.59); #Neutrophils 5.5 thou/uL (1.40-6.50); %Basophils 0.6 % (0.0-1.0); %Eosinophils 4.9 % (0.0-10.0); %Lymphocytes 14.8 % (21.0-51.0); %Neutrophils 70.7 % (42.0-75.0); Mean Corpuscular HGB CONC 32.4 g/dL (32.0-36.0); Mean Corpuscular Volume 98.8 fL (78.0-98.0); Platelet Count 233 thou/uL (130-400); RBC Distribution Width 11.6 % (11.5-14.5); Red Blood Cell (RBC) Count 2.82 mill/uL (4.20-5.40); White Blood Cell (WBC) Count 7.8 thou/uL (4.8-10.8)
[2018-06-30 05:21] LABS: Anion Gap 11 mmol/L (10-20); BUN (Urea Nitrogen) 10 mg/dL (9.8-20.1); Calc. Creatinine Clearance 63 mL/min (70-130); Calcium 8.7 mg/dL (7.8-10.44); Carbon Dioxide 29 mmol/L (23-31); Chloride 106 mmol/L (98-107); Estimated GFR-MDRD 69; Glucose 100 mg/dL (83-110); Potassium 3.8 mmol/L (3.5-5.1); Sodium 142 mmol/L (136-145)
[2018-06-30] MEDS ORDERED: PHENYLEPHRINE-NS 100 MCG/ML 10 ML SYRINGE ONE ×2 (08:33→16:24)
[2018-06-30] MEDS ORDERED: Propofol 1,000 MG/100 ML VIAL IV ONE (08:34)
[2018-06-30] MEDS: Amiodarone 200 MG TAB PO SCH ×2 (11:25→21:47)
[2018-06-30] MEDS: Apixaban 2.5 MG TAB PO SCH ×2 (11:26→21:47)
[2018-06-30] MEDS: Erythromycin Base 0.5% Oint 1 GM TUBE R EYE SCH ×2 (11:26→21:47)
--- NOTE | 2018-06-30 12:31 | PDOC.CTH ---
Cardiology Progress Note - Subjective EP PROGRESS NOTE:06/30/18 Seen as follow up for A Fib, pericardial effusion, and device management. She underwent YUMIKO successful CV this AM. Overall feels well today. She denies any acute bleeding issues since starting low dose Eliquis last night. No new cardiac concerns or complaints today. - Objective Vital Signs Temp Pulse Resp BP Pulse Ox 06/30/18 08:00 98.6 F 84 18 115/79 99 06/30/18 07:27 79 16 98 06/30/18 04:00 98.7 F 72 14 106/56 L 98 Weight 179 lb 8 oz 06/29/18 06/30/18 07/01/18 06:59 06:59 06:59 Intake Total 800 800 Output Total 1175 1325 Balance -375 -525 - Physical Examination General/Neuro: alert & oriented x3, NAD Neck: carotid US brisk, no JVD present Lungs: CTA, unlabored respirations Heart: PMI normal, RRR Abdomen: NT/ND, soft Other PE findings: PPM incision CDI - Telemetry Telemetry Rhythm: Sinus rhythm - Labs Result Diagrams: 06/30/18 04:24 06/30/18 04:24 Troponin/CKMB Troponin I 0.013 ng/mL (< 0.028) 06/24/18 01:57 - Assessment/Plan 1. SSS s/p PPM - AP VS 2. Parox. AF - s/p CV this AM. holding SR. 3. CHADS2-VASC >/=3 -started low dose eliquis. If liver enzymes normalize, will likely increase to full dose 4. Pericardial effusion -largely resolved by 2D echo reading on 06/29 5. Dysphagia, per GI 6. Pleural Effusion, hospitalist 7. Bacteremia, per ID Continue eliquis 2.5mg BID. Consider antiarrhythmic medication if AF recurrence is seen
--- NOTE | 2018-06-30 13:26 | PRG ---
DATE OF SERVICE: 06/29/2018 REASON FOR FOLLOWUP: Pericardial effusion, device management, paroxysmal atrial fibrillation, and sick-sinus syndrome. SUBJECTIVE: Eric is feeling better than when she was last seen on Friday. She is having more energy. She denies any heart racing, palpitations, any further chest pain or pressure. She has not had any syncope or near syncopal episodes. Infectious Disease was consulted with her positive blood cultures and recommended a YUMIKO, which is scheduled for tomorrow. She denies any fever, nausea, vomiting, diarrhea. REVIEW OF SYSTEMS: An 8-point review of systems is conducted, is negative except that is listed above in HPI. OBJECTIVE: VITAL SIGNS: Temperature 98.6, pulse 76, blood pressure 105/59, respirations 20, oxygen is 100% on 3 L via nasal cannula. GENERAL: The patient is alert and oriented. Speech is clear. Affect is appropriate. She does appear to feel better than 3 days ago when she was last evaluated by myself. She is in no apparent distress, sitting semi-upright in the bed. HEART: Her heart rate is irregularly irregular with controlled ventricular rate. LUNGS: Clear to auscultation bilaterally, but has substantially diminished in the bases. Respirations; there is a mild expiratory wheeze and some crackles to the bases, so respirations are even and unlabored. ABDOMEN: Soft and nontender without palpable masses. Positive bowel sounds are noted throughout. There is no hepatojugular reflux. EXTREMITIES: Warm and dry to touch without clubbing or cyanosis, but bilateral edema is present 1+. DATABASE: WBC 7.2, hemoglobin 10.1, platelet count 243. Potassium 3.8, creatinine 0.96. ALT and AST are declining, currently 178 and 66 respectively. IMPRESSION: 1. Sick-sinus syndrome, status post dual-chamber pacemaker within the past month. 2. Acalculous cholecystitis. 3. Chest pain, resolved. 4. Persistent atrial fibrillation. 5. CHADS-VASc score of greater than or equal to 3. Currently, not on anticoagulation. 6. Dysphagia, recurrent issue and has undergone dilation in the past, being followed by Dr. Saba. 7. Bacteremia with Streptococcus mitis/oralis, being followed by Infectious Disease. RECOMMENDATIONS: Ms. Reyes underwent repeat echocardiogram today to evaluate pericardial effusion, which has substantially reduced in size and now with minimal residual effusion remaining. She has not had any further chest pain. Unfortunately, she does have substantial improvement with fusion. Infectious Disease is following and ordered a YUMIKO to evaluate for any possible endocarditis associated given the culprit lesion identified in her bloodstream. We will start her on oral anticoagulation with Eliquis 5 mg p.o. b.i.d. for an elevated CHADS-VASc score. At that time, the YUMIKO, which is planned and being performed by Dr. Rodriguez, that could also evaluate for any possible thrombus in left atrial appendage. If no thrombus present, then recommend proceeding with a cardioversion to restore sinus rhythm. The patient voices understanding and agrees with plan of care. This is also discussed with Dr. Rodriguez, who is in agreement. For now, she remains in atrial fibrillation as mentioned, which is rate controlled and she is feeling well other than fairly recent issue of dysphagia, that is a recurrent issue for her, that popped up over the weekend. We will continue to follow up for arrhythmia and device management. Job ID: [id number]
[2018-06-30] MEDS: cefTRIAXone\\ROCEPHIN 2 GM in Sodium Chloride 0.9% 100 ML IVPB SCH (13:45)
--- NOTE | 2018-06-30 14:46 | OP ---
DATE OF PROCEDURE: 06/30/2018 TRANSESOPHAGEAL ECHOCARDIOGRAM INDICATIONS: This is an 88-year-old woman with paroxysmal atrial fibrillation and sepsis. DESCRIPTION OF PROCEDURE: The patient was taken to the PACU. The patient was sedated by Anesthesiology. A transesophageal probe was placed into the distal esophagus and stomach. Echocardiographic images were obtained. The transesophageal probe was removed. FINDINGS: 1. Normal left ventricular systolic function. 2. Left atrial enlargement. 3. The aortic valve leaflets are mildly thickened. 4. The mitral valve leaflets are normal. 5. Mild mitral regurgitation. 6. Mild tricuspid regurgitation. 7. No thrombus in the left atrium or left atrial appendage. 8. No vegetations were noted on the aortic, mitral, or tricuspid valves, or the electronic pacemaker. 9. Pacemaker wires noted in the right ventricle. 10. Atherosclerotic debris in the descending aorta. IMPRESSION: No formed thrombus in the left atrium or left atrial appendage, and no vegetation noted on the cardiac valves or pacemaker. Job ID: [id number] MTDD
--- NOTE | 2018-06-30 16:06 | OP ---
DATE OF PROCEDURE: 06/30/2018 PROCEDURE PERFORMED: Electrocardioversion. INDICATIONS: An 88-year-old woman with paroxysmal atrial fibrillation. DESCRIPTION OF PROCEDURE: The patient was taken to PACU. The patient was sedated by anesthesiology. The patient was shocked with 200 joules synchronized electricity. The patient converted to normal sinus rhythm. IMPRESSION: Successful electrocardioversion. Job ID: [id number]
--- NOTE | 2018-06-30 16:23 | PDOC.PN ---
- Subjective Encounter Start Date: 06/30/18 Encounter Start Time: 11:00 Ms. Reyes was seen today in follow-up of strep bacteremia. She is is feeling better today. She denies feeling short of breath. - Objective Resuscitation Status - Order Detail: 06/24/18 01:29 Resuscitation Status Routine Co-Sign Provider: Resuscitation Status: FULL: Full Resuscitation Discussed with: Patient and daughter MAR Reviewed: Yes Vital Signs & Weight: Vital Signs (12 hours) Temp Pulse Pulse Pulse Resp BP BP 06/30/18 13:37 85 20 06/30/18 11:50 86 81 110/58 L 106/61 06/30/18 08:00 98.6 F 84 18 06/30/18 07:27 79 16 BP Pulse Ox Pulse Ox Pulse Ox 06/30/18 13:37 97 06/30/18 11:50 95 95 06/30/18 08:00 115/79 99 06/30/18 07:27 98 Weight Weight 179 lb 8 oz Most Recent Monitor Data Heart Rate from ECG 90 NIBP 104/72 NIBP BP-Mean 82 Respiration from ECG 23 SpO2 97 I&O: 06/29/18 06/30/18 07/01/18 06:59 06:59 06:59 Intake Total 800 800 Output Total 1175 1325 Balance -375 -525 Result Diagrams: 06/30/18 04:24 06/30/18 04:24 Phys Exam - Physical Examination HEENT: PERRLA Respiratory: wheezing present + occasional wheeze, and some rhonchi at the bases Cardiovascular: RRR, no significant murmur, no rub Gastrointestinal: soft, non-tender, positive bowel sounds Musculoskeletal: pulses present, edema present trace pedal edema Dx/Plan (1) Acalculous cholecystitis Code(s): K81.9 - CHOLECYSTITIS, UNSPECIFIED Status: Acute (2) Chest pain Code(s): R07.9 - CHEST PAIN, UNSPECIFIED Status: Resolved Comment: due to mild pancreattis from acalculous cholecystitis (3) Sick sinus syndrome Code(s): I49.5 - SICK SINUS SYNDROME Status: Chronic Comment: s/p pacemaker placement (4) Hypertension Code(s): I10 - ESSENTIAL (PRIMARY) HYPERTENSION Status: Chronic (5) Hypothyroidism Code(s): E03.9 - HYPOTHYROIDISM, UNSPECIFIED Status: Chronic - Plan * Pancreatitis due to Acalculous cholecysytitis- resolved * Strep Bacteremia- Echo and YUMIKO were negative for vegetations- await further ID recommendations * Volume overload- yesterday she was coughing and feeling dyspneic, today those symptoms have resolved- I a reluctant to give her any Lasix, given her borderline low blood pressures. Will defer to Cardiology * HTN- blood pressure is low normal * AFIB- she underwent cardioversion, and is now in sinus * She has been placed on Eliquis for CVA prevention * Hypothyroidism- stable
[2018-06-30] MEDS ORDERED: PROPOFOL 200 MG/20 ML VIAL ONE (16:24)
[2018-06-30] MEDS ORDERED: Lidocaine 1% PF 5 ML VIAL ONE (16:24)
--- NOTE | 2018-06-30 17:03 | PRG ---
DATE OF SERVICE: 06/30/2018 SUBJECTIVE: The patient had a YUMIKO, which was pretty much normal. No headaches. No neck pain. No abdominal pain or diarrhea. Afebrile except for one elevation of 100.3 yesterday. OBJECTIVE: LUNGS: Clear. HEART: S1, S2. Regular rate. ABDOMEN: Soft, not distended. LABORATORY DATA: White cell count 7.8, hemoglobin 9.0, platelets 233. Sodium 142, creatinine 0.79. AST 66, ALT 178. ASSESSMENT AND DISCUSSION: Sick sinus syndrome, recent pacemaker placement, chest pain, and Streptococcus mitis oralis bacteremia with a negative YUMIKO. Evidence of duodenitis. We will manage this case as transient strep oralis bacteremia from the duodenitis. After discharge, consider transitioning to oral amoxicillin 1 g q.8 hours and treat for about 2 weeks. If there is recrudescence of the infection, then we will have to remove the pacemaker or just treat her with the Rocephin for 4 to 6 weeks. Job ID: [id number]
--- NOTE | 2018-06-30 17:42 | PRG ---
DATE OF SERVICE: 06/30/2018 SUBJECTIVE: Ms. Reyes feeling well today. She is eating. She has had no more dysphagia. She had a YUMIKO and cardioversion today and did well with both. OBJECTIVE: VITAL SIGNS: Temperature is 98, pulse 86, blood pressure 104/60. ABDOMEN: Soft, nontender. LABORATORY DATA: White count 7.8, hemoglobin 9, and platelet count 233. Basic metabolic profile normal. ASSESSMENT: abdominal pain and abnormal pancreas with inflammation on CT on admission with mildly low lipase, all which resolved rapidly. She shows no signs of gallstones. She had a HIDA scan with filling of the gallbladder. No acute cholecystitis. She had an EGD that was normal. Attention turned to her sepsis when she came in with grew out Strep mitis in the blood. She has had echocardiogram to rule out endocarditis, which is negative, and slowly she is improving. PLAN: From GI standpoint, I think she can go home when ready. We will follow from a distance. If I can be of any further assistance in her care, please do not hesitate to contact me. Job ID: [id number]
[2018-06-30] MEDS: Gabapentin 300 MG CAP PO SCH (21:47)
[2018-06-30] MEDS: Donepezil HCl 10 MG TAB PO SCH (21:47)
[2018-07-01] MEDS: Dextrose 5% in Water 1,000 ML IV SCH (01:42)
[2018-07-01 05:38] LABS: #Eosinphils 0.4 thou/uL (0.0-0.7); #Monocytes 0.7 thou/uL (0.11-0.59); #Neutrophils 5.1 thou/uL (1.40-6.50); %Basophils 0.4 % (0.0-1.0); %Eosinophils 5.3 % (0.0-10.0); %Lymphocytes 13.9 % (21.0-51.0); %Monocytes 10.2 % (0.0-10.0); %Neutrophils 70.2 % (42.0-75.0); Hemoglobin 8.6 g/dL (12.0-16.0); Mean Corpuscular HGB CONC 32.4 g/dL (32.0-36.0); Mean Corpuscular Hemoglobin 32.1 pg (27.0-31.0); Mean Corpuscular Volume 99.3 fL (78.0-98.0); Mean Platelet Volume 7.7 fL (7.4-10.4); Platelet Count 247 thou/uL (130-400); RBC Distribution Width 11.7 % (11.5-14.5); Red Blood Cell (RBC) Count 2.68 mill/uL (4.20-5.40); White Blood Cell (WBC) Count 7.3 thou/uL (4.8-10.8)
[2018-07-01 06:00] LABS: Anion Gap 9 mmol/L (10-20); BUN (Urea Nitrogen) 11 mg/dL (9.8-20.1); Calc. Creatinine Clearance 63 mL/min (70-130); Calcium 8.9 mg/dL (7.8-10.44); Carbon Dioxide 29 mmol/L (23-31); Chloride 105 mmol/L (98-107); Estimated GFR-MDRD 69; Glucose 93 mg/dL (83-110); Potassium 3.9 mmol/L (3.5-5.1); Sodium 139 mmol/L (136-145)
[2018-07-01] MEDS: Amiodarone 200 MG TAB PO SCH (08:35)
[2018-07-01] MEDS: Apixaban 2.5 MG TAB PO SCH (08:35)
[2018-07-01] MEDS: Erythromycin Base 0.5% Oint 1 GM TUBE R EYE SCH (08:36)
--- NOTE | 2018-07-01 10:06 | PDOC.PN ---
- Subjective Encounter Start Date: 07/01/18 Encounter Start Time: 10:01 Patient seen and examined, no new issues or complaints, all questions answered. - Objective Resuscitation Status - Order Detail: 06/24/18 01:29 Resuscitation Status Routine Co-Sign Provider: Resuscitation Status: FULL: Full Resuscitation Discussed with: Patient and daughter Vital Signs & Weight: Vital Signs (12 hours) Temp Pulse Resp BP Pulse Ox 07/01/18 08:00 97.6 F 61 17 115/61 100 07/01/18 07:24 60 16 100 07/01/18 02:55 98.6 F 67 18 129/59 L 98 07/01/18 02:10 63 18 97 Weight Weight 179 lb 8 oz Most Recent Monitor Data Heart Rate from ECG 90 NIBP 104/72 NIBP BP-Mean 82 Respiration from ECG 23 SpO2 97 I&O: 06/30/18 07/01/18 07/02/18 06:59 06:59 06:59 Intake Total 800 850 Output Total 1325 700 Balance -525 150 Result Diagrams: 07/01/18 05:09 07/01/18 05:09 Phys Exam - Physical Examination Constitutional: NAD HEENT: PERRLA, moist MMs, sclera anicteric Neck: no nodes, no JVD, supple, full ROM Respiratory: no wheezing, no rales, no rhonchi Cardiovascular: RRR, no rub 2/6 MOOK Gastrointestinal: soft, non-tender, no distention Musculoskeletal: pulses present, edema present (trace) Dx/Plan (1) Bacteremia Code(s): R78.81 - BACTEREMIA Status: Acute (2) Acalculous cholecystitis Code(s): K81.9 - CHOLECYSTITIS, UNSPECIFIED Status: Acute (3) Epigastric abdominal pain Code(s): R10.13 - EPIGASTRIC PAIN Status: Acute (4) Hypothyroidism Code(s): E03.9 - HYPOTHYROIDISM, UNSPECIFIED Status: Acute (5) Sick sinus syndrome Code(s): I49.5 - SICK SINUS SYNDROME Status: Chronic Comment: s/p pacemaker placement (6) Chest pain Code(s): R07.9 - CHEST PAIN, UNSPECIFIED Status: Resolved Comment: due to mild pancreattis from acalculous cholecystitis (7) Hypothyroidism Code(s): E03.9 - HYPOTHYROIDISM, UNSPECIFIED Status: Chronic - Plan * YUMIKO pending * PO abx regimen amoxicillin 1g q8hrs x 2 weeks * labs in AM * continue current plan of care * case and plan d/w patient at length, she understands and agrees with this plan.
[2018-07-01] MEDS: cefTRIAXone\\ROCEPHIN 2 GM in Sodium Chloride 0.9% 100 ML IVPB SCH (14:11)
[2018-07-01 15:43] VITALS: BP 114/60; TEMP 98.3
--- NOTE | 2018-07-01 16:48 | PDOC.CTH ---
Cardiology Progress Note - Subjective EP PROGRESS NOTE:06/30/18 Seen as follow up for A Fib, pericardial effusion, and device management. She underwent YUMIKO successful CV yesterday and maintains SR. Overall feels well today. She denies any acute bleeding issues since starting low dose Eliquis 06/29/18. No new cardiac concerns or complaints today. - Objective Vital Signs Temp Pulse Pulse Pulse Resp BP BP 07/01/18 15:42 98.3 F 70 17 07/01/18 13:38 67 16 07/01/18 11:44 97.5 F L 66 18 07/01/18 09:44 75 66 126/66 107/56 L 07/01/18 08:00 97.6 F 61 17 07/01/18 07:24 60 16 BP Pulse Ox Pulse Ox Pulse Ox 07/01/18 15:42 114/60 93 L 07/01/18 13:38 97 07/01/18 11:44 122/60 93 L 07/01/18 09:44 95 97 07/01/18 08:00 115/61 97 07/01/18 07:24 100 Weight 179 lb 8 oz 06/30/18 07/01/18 07/02/18 06:59 06:59 06:59 Intake Total 800 850 Output Total 1325 700 Balance -525 150 - Physical Examination General/Neuro: alert & oriented x3, NAD Lungs: CTA Heart: RRR Abdomen: no HSM - Telemetry Telemetry Rhythm: Apaced - Labs Result Diagrams: 07/01/18 05:09 07/01/18 05:09 Troponin/CKMB Troponin I 0.013 ng/mL (< 0.028) 06/24/18 01:57 - Assessment/Plan - Assessment/Plan 1. SSS s/p PPM - AP VS 2. Parox. AF - s/p CV 06/30/18. holding SR. 3. CHADS2-VASC >/=3 -started low dose eliquis. If liver enzymes normalize, will likely increase to full dose 4. Pericardial effusion -largely resolved by 2D echo reading on 06/29 5. Dysphagia, per GI 6. Pleural Effusion, hospitalist 7. Bacteremia, per ID 8.Anemia.Stable,but monitor CBC while on OAC. Continue eliquis 2.5mg BID. Consider antiarrhythmic medication if AF recurrence is seen.
--- NOTE | 2018-07-01 17:05 | DIS ---
DATE OF ADMISSION: 06/24/2018 DATE OF DISCHARGE: 07/01/2018 ADMITTING DIAGNOSES: 1. Chest pain. 2. Sick sinus syndrome. 3. Hypertension. 4. Hypothyroidism. 5. Bacteremia. 6. Hyperlipidemia. DISCHARGE DIAGNOSES: 1. Sick sinus syndrome, stable. 2. Chest pain, resolved. 3. Hypertension, stable. 4. Bacteremia, stable. 5. Hyperlipidemia, stable. HOSPITAL COURSE: This is an 88-year-old female, who was admitted to Internal Medicine Team complaining of chest pain, was evaluated by Cardiology, Cardiovascular Surgery, Gastroenterology, Infectious Disease, Pulmonary Team as well as EP. The patient was admitted to Internal Medicine Team, was started on medical management for her atrial fibrillation and hypertension. Had blood cultures done. GI evaluation completed because of abdominal discomfort and abdominal pain, concern for cholecystitis, acalculous. The patient also was found to have blood cultures positive for Streptococcus mitis oralis. Had a YUMIKO as well as a TTE completed, vegetations ruled out. The patient was given amoxicillin 1 g q.8 hours x2 weeks for medical care to be completed and to follow up with PCP after completion of antibiotic regimen for repeat cultures. The patient also had a HIDA scan done, which showed no evidence of cystic duct or common bile duct obstruction. Ejection fraction was less than 1%. Significant dyskinesia was noted. The patient had evaluation with surgery done and had two surgical interventions, one with EGD with GI as well as one with Cardiology for transesophageal echocardiogram and cardioversion. The patient was transported to the floor, followed closely again by Internal Medicine Team at length, stable upon the time of discharge. Hemoglobin stable. White count stable. Vital signs stable. Basic metabolic panel stable. The patient was given a prescription for amoxicillin 1 g q.8 hours x2 weeks. Case was discussed with her daughter, Shelly Díaz over the phone at [phone]. The patient's condition was stable. She is to follow up with her PCP after two weeks course of antibiotic regimen. The family advised that if repeat cultures were positive, then she would need probably 4 to 6 weeks of IV antibiotics, likely Rocephin as well as exchange or replacement of her pacemaker. The patient was to go back to [facility] from where she came. CONDITION: Stable. PROGNOSIS: Guarded. ACTIVITY: As tolerated with assistance as needed. Food, low-fat, low-calorie, high-fiber diet. MEDICATIONS: See Mar. Case and plan again discussed with the patient's daughter at length over the phone. She understood and agreed with this plan. Job ID: [id number]
--- NOTE | 2018-07-04 15:12 | EKG ---
Test Reason : Blood Pressure : / mmHG Vent. Rate : 072 BPM Atrial Rate : 044 BPM P-R Int : 000 ms QRS Dur : 110 ms QT Int : 406 ms P-R-T Axes : 000 106 -22 degrees QTc Int : 444 ms Demand pacemaker; interpretation is based on intrinsic rhythm Marked sinus bradycardia with 1st degree A-V block with Premature supraventricular complexes with occ asional Premature ventricular complexes Rightward axis Incomplete right bundle branch block Possible Anterior infarct , age undetermined T wave abnormality, consider inferior ischemia Abnormal ECG Confirmed by ELIZABETH BLANK, TRENT De Jesus ([id number]), assistant production editor TG GOLDMAN ([id number]) on 07/04/2018 3:11:42 PM Referred By: Confirmed By:TRENT JOHNSON MD
== END 2018-07-01 17:12 | DRG 871 ==
LOC: ERS 21:00 → OBSVTOIN 06-24 01:02 → 2NO 06-24 01:02 → CCU 06-25 04:39 → 2NO 06-25 19:51
PROVIDERS: ADMIT Hospitalist; ATTEND Hospitalist
PROC: 0DJ08ZZ Inspection of Upper Intestinal Tract, Via Natural or Artificial Opening Endoscopic (ICD-10-PCS; 2018-06-25)
PROC: 3E033XZ Introduction of Vasopressor into Peripheral Vein, Percutaneous Approach (ICD-10-PCS; 2018-06-25)
PROC: 5A2204Z Restoration of Cardiac Rhythm, Single (ICD-10-PCS; principal; 2018-06-30)
PROC: B246ZZ4 Ultrasonography of Right and Left Heart, Transesophageal (ICD-10-PCS; 2018-06-30)
DX: A41.9 Sepsis, unspecified organism (principal); J18.9 Pneumonia, unspecified organism; K85.90 Acute pancreatitis without necrosis or infection, unspecified; K72.00 Acute and subacute hepatic failure without coma; J96.01 Acute respiratory failure with hypoxia; I31.3 Pericardial effusion (noninflammatory); K81.9 Cholecystitis, unspecified; I48.0 Paroxysmal atrial fibrillation; I08.1 Rheumatic disorders of both mitral and tricuspid valves; K44.9 Diaphragmatic hernia without obstruction or gangrene; N18.2 Chronic kidney disease, stage 2 (mild); E03.9 Hypothyroidism, unspecified; I49.5 Sick sinus syndrome; I12.9 Hypertensive chronic kidney disease with stage 1 through stage 4 chronic kidney disease, or unspecified chronic kidney disease; H10.9 Unspecified conjunctivitis; D64.9 Anemia, unspecified; E78.5 Hyperlipidemia, unspecified; F03.90 Unspecified dementia, unspecified severity, without behavioral disturbance, psychotic disturbance, mood disturbance, and anxiety; K21.9 Gastro-esophageal reflux disease without esophagitis; B95.5 Unspecified streptococcus as the cause of diseases classified elsewhere; R13.12 Dysphagia, oropharyngeal phase; Z79.02 Long term (current) use of antithrombotics/antiplatelets; Z95.0 Presence of cardiac pacemaker
CPT/HCPCS: 36415; 71045; 74170; 76705; 78227; 80048; 80053; 80076; 80202; 81001; 82550; 82728; 83540; 83550; 83605; 83690; 83735; 83880; 84145; 84443; 84484; 85025; 87040; 87077; 87086; 87149; 87186; 92960; 93005; 93010; 93306; 93312; 94640; 94760; A4353; A9537; C9113; J0131; J0696; J1265; J1940; J2001; J2405; J2543; J2704; J3010; J3370; J7050; J7070; J7620; Q9966

== ENCOUNTER 2018-09-11 21:50 | Emergency (ER) | payer MEDICARE ==
--- NOTE | 2018-09-11 22:51 | RAD ---
AP VIEW CHEST: 09/11/18 HISTORY: Altered mental status. AP view chest is obtained on 09/11/18. Comparison made to previous exam from 06/29/18. AP view chest demonstrates a dual lead intracardiac pacing device. Calcification of the aorta is see n. The lungs are well aerated. No evidence of active intrathoracic disease seen. No evidence of effu sions, pneumonia or pneumothorax seen. IMPRESSION: Unremarkable AP view chest. POS: [facility]
--- NOTE | 2018-09-11 23:09 | CT ---
CT BRAIN 09/11/18 HISTORY: Altered mental status. Noncontrast enhanced CT images of the brain is obtained from base of the skull through the vertex. B rain and bone windows obtained. CT images of the brain demonstrate diffuse cortical atrophy. No evidence of intracranial masses, hemo rrhages, strokes or contusions seen. IMPRESSION: No evidence of acute intracranial pathology seen. POS: [facility]
[2018-09-11 23:25] LABS: #Basophils 0.1 thou/uL (0.0-0.2); #Eosinphils 0.1 thou/uL (0.0-0.7); #Lymphocytes 1.5 thou/uL (1.20-3.40); #Monocytes 1.1 thou/uL (0.11-0.59); #Neutrophils 7.1 thou/uL (1.40-6.50); %Basophils 0.6 % (0.0-1.0); %Eosinophils 1.5 % (0.0-10.0); %Lymphocytes 15.5 % (21.0-51.0); %Neutrophils 71.4 % (42.0-75.0); Hemoglobin 11.8 g/dL (12.0-16.0); Mean Corpuscular HGB CONC 32.5 g/dL (32.0-36.0); Mean Corpuscular Hemoglobin 30.2 pg (27.0-31.0); Mean Corpuscular Volume 93.1 fL (78.0-98.0); Mean Platelet Volume 8.6 fL (7.4-10.4); Platelet Count 185 thou/uL (130-400); RBC Distribution Width 12.6 % (11.5-14.5); Red Blood Cell (RBC) Count 3.91 mill/uL (4.20-5.40); White Blood Cell (WBC) Count 9.9 thou/uL (4.8-10.8)
[2018-09-11 23:40] LABS: Anion Gap 14 mmol/L (10-20); BUN (Urea Nitrogen) 13 mg/dL (9.8-20.1); Calc. Creatinine Clearance 0 mL/min (70-130); Calcium 9.5 mg/dL (7.8-10.44); Carbon Dioxide 25 mmol/L (23-31); Chloride 105 mmol/L (98-107); Estimated GFR-MDRD 70; Glucose 90 mg/dL (83-110); Potassium 4.3 mmol/L (3.5-5.1); Sodium 140 mmol/L (136-145)
[2018-09-11 23:42] LABS: Bilirubin Negative (Negative); Blood, Urine Small (Negative); Clarity CLEAR (Clear); Glucose, Urine (Dipstick) Negative (Negative); Leukocyte Negative (Negative); Nitrite Negative (Negative); Protein, Urine (Dipstick) Negative (Neg-Trace); Specific Gravity, Urine 1.009 (1.002-1.036); pH, Urine 6.5 (5.0-9.0)
[2018-09-11 23:44] LABS: Bacteria/HPF None Seen HPF (None Seen); Hyaline Casts/LPF 0-3 HYALINE CAST LPF (0-3 Hyaline); Pathc Cast-AUWi Flag 0.27 (0-2.49); Squamous Epithelial 0-3 HPF (0-3); WBC/HPF 0-3 HPF (0-3)
== END 2018-09-12 01:45 ==
LOC: ERS 21:50
DX: R53.1 Weakness (principal); E03.9 Hypothyroidism, unspecified; E78.5 Hyperlipidemia, unspecified; K21.9 Gastro-esophageal reflux disease without esophagitis; Z79.899 Other long term (current) drug therapy
CPT/HCPCS: 51701; 70450; 71045; 80048; 81003; 81015; 84484; 85025; 93005; A4353

== ENCOUNTER 2018-10-13 09:59 | Inpatient (IN) | payer MEDICARE, MEDICAID ==
[2018-10-13 10:22] LABS: #Eosinphils 0.1 thou/uL (0.0-0.7); #Lymphocytes 0.3 thou/uL (1.20-3.40); #Monocytes 0.4 thou/uL (0.11-0.59); #Neutrophils 7.7 thou/uL (1.40-6.50); %Basophils 0.1 % (0.0-1.0); %Eosinophils 1.4 % (0.0-10.0); %Lymphocytes 3.9 % (21.0-51.0); %Monocytes 4.7 % (0.0-10.0); %Neutrophils 89.9 % (42.0-75.0); Hemoglobin 12.2 g/dL (12.0-16.0); Mean Corpuscular HGB CONC 32.1 g/dL (32.0-36.0); Mean Corpuscular Hemoglobin 29.7 pg (27.0-31.0); Mean Corpuscular Volume 92.3 fL (78.0-98.0); Mean Platelet Volume 8.2 fL (7.4-10.4); Platelet Count 200 thou/uL (130-400); Red Blood Cell (RBC) Count 4.13 mill/uL (4.20-5.40); White Blood Cell (WBC) Count 8.6 thou/uL (4.8-10.8)
[2018-10-13 10:25] LABS: INR-International Normal Ratio 1.1; PTT 28.7 SEC (22.9-36.1); Prothrombin Time 14.7 SEC (12.0-14.7)
--- NOTE | 2018-10-13 10:35 | RAD ---
SINGLE VIEW OF THE CHEST: Comparison: 09-11-18 History: Chest pain, shortness of breath. FINDINGS: Single view of the chest shows a normal sized cardiomediastinal silhouette with atherosclerotic calci fications in the aorta. The pacemaker is unchanged in position. There is no evidence of consolidation , mass, or pleural effusion. IMPRESSION: No evidence of acute cardiopulmonary disease. POS: [facility]
[2018-10-13 10:36] LABS: Lactic Acid 0.8 mmol/L (0.5-2.2)
[2018-10-13 10:41] LABS: ALT (SGPT) 9 U/L (8-55); AST (SGOT) 19 U/L (5-34); Albumin 3.6 g/dL (3.4-4.8); Alkaline Phosphatase 78 U/L (40-150); Anion Gap 13 mmol/L (10-20); BUN (Urea Nitrogen) 12 mg/dL (9.8-20.1); Bilirubin, Total 0.5 mg/dL (0.2-1.2); CK (CPK) 69 U/L (29-168); Calc. Creatinine Clearance 0 mL/min (70-130); Calcium 9.2 mg/dL (7.8-10.44); Carbon Dioxide 28 mmol/L (23-31); Chloride 102 mmol/L (98-107); Estimated GFR-MDRD 54; Globulin 2.9 g/dL (2.4-3.5); Glucose 109 mg/dL (83-110); Potassium 4.5 mmol/L (3.5-5.1); Protein, Total 6.5 g/dL (6.0-8.3); Sodium 138 mmol/L (136-145)
--- NOTE | 2018-10-13 10:52 | CT ---
CT HEAD WITHOUT CONTRAST: Technique: Multiple axial tomograms were obtained through the head without IV enhancement. Indications: Stroke alert. Right side weakness. Comparison: 09-11-18 FINDINGS: There is cortical volume loss and mild ventriculomegaly which appears stable. No evidence of acute ma ss or hemorrhage. No acute infarct identified. No interval change noted. IMPRESSION: No acute finding. Findings relayed to Dr. George at approximately 1010 hours. POS: [facility]
--- NOTE | 2018-10-13 10:58 | CT ---
CTA HEAD WITH CONTRAST CTA NECK: Technique: Multiple axial tomograms were obtained through the head following cerebral angio protocol with multiplanar reconstruction and 3D post processing. Indications: Stroke protocol. FINDINGS: The intracranial internal carotid arteries are patent and symmetric. Mild atherosclerotic changes are present in the cavernous portions of both ICAs. Middle cerebral arteries appear patent and symmetric. M1 segments show no evidence of focal stenosis or occlusion. M2 and M3 branches appear symmetric. The basilar artery is patent. Posterior cerebral arteries appear symmetric. IMPRESSION: No evidence of proximal cerebral artery stenosis or occlusion. CTA NECK: Technique: Multiple axial tomograms were obtained through the neck with IV enhancement following michelle o protocol with multiplanar reconstruction and 3D post processing. Indications: Stroke protocol. FINDINGS: Common carotid arteries are patent and unremarkable. There is mild atherosclerotic change at both bulbs and proximal ICAs, however, no evidence of signifi cant ICA stenosis identified on either side. Review of soft tissue images show an area of pleural based nodular density in the anterior right uppe r lobe measuring 1.8 cm. This should be followed electively. No other soft tissue abnormality apparen t. IMPRESSION: 1. No evidence of carotid stenosis. 2. Apical pleural thickening bilaterally with a nodular area seen anteriorly in the right upper lung. Elective follow up recommended. Code LN. POS: [facility]
[2018-10-13 11:03] LABS: ALT (SGPT) 11 U/L (8-55); AST (SGOT) 20 U/L (5-34); Albumin 3.7 g/dL (3.4-4.8); Alkaline Phosphatase 80 U/L (40-150); Anion Gap 13 mmol/L (10-20); BUN (Urea Nitrogen) 12 mg/dL (9.8-20.1); Bilirubin, Total 0.4 mg/dL (0.2-1.2); Calc. Creatinine Clearance 0 mL/min (70-130); Carbon Dioxide 28 mmol/L (23-31); Chloride 103 mmol/L (98-107); Estimated GFR-MDRD 54; Globulin 2.5 g/dL (2.4-3.5); Glucose 111 mg/dL (83-110); Potassium 4.7 mmol/L (3.5-5.1); Protein, Total 6.2 g/dL (6.0-8.3); Sodium 139 mmol/L (136-145)
[2018-10-13 11:25] LABS: Bilirubin Negative (Negative); Blood, Urine Trace (Negative); Clarity CLEAR (Clear); Glucose, Urine (Dipstick) Negative (Negative); Leukocyte Large (Negative); Nitrite Negative (Negative); Protein, Urine (Dipstick) Negative (Neg-Trace); pH, Urine 7.5 (5.0-9.0)
[2018-10-13 11:28] LABS: Bacteria/HPF 2+ HPF (None Seen); Hyaline Casts/LPF 4-6 HYALINE CAST LPF (0-3 Hyaline); Pathc Cast-AUWi Flag 1.22 (0-2.49); Squamous Epithelial 0-3 HPF (0-3)
[2018-10-13] MEDS ORDERED: ISOVUE-370 76%-LOCM 1 ML ONE (11:31)
[2018-10-13 11:33] LABS: Specific Gravity, Urine 1.057 (1.002-1.036)
[2018-10-13] MEDS ORDERED: cefTRIAXone\\ROCEPHIN 1 GM VIAL ONE (12:10)
[2018-10-13 14:06] LABS: Troponin I Less than 0.010 ng/mL (< 0.028)
[2018-10-13] MEDS ORDERED: Acetaminophen 325 MG TAB PO PRN (18:19)
[2018-10-13] MEDS ORDERED: Diclofenac 1% 100 GM GEL TP PRN (18:22)
[2018-10-13] MEDS ORDERED: Prevnar 13-Val Conj/PF 0.5 ML SYRINGE IM ONE (18:30)
[2018-10-13] MEDS ORDERED: Dextrose 5 %-0.45 % NaCl 1,000 ML IV SCH (18:30)
[2018-10-13 19:25] VITALS: BMI 26.8
[2018-10-13] MEDS: Polyethylene Glycol OPTH DROP 15 ML BOT EA EYE SCH (20:30)
[2018-10-13] MEDS: Apixaban 5 MG TAB PO SCH (20:30)
[2018-10-13] MEDS ORDERED: Sodium Chloride 0.9% 250 ML IVPB SCH (23:15)
[2018-10-13] MEDS ORDERED: Sodium Chloride 0.9% 100 ML IVPB SCH (23:45)
[2018-10-13] MEDS: Sodium Chloride 0.9% 1,000 ML IV SCH (23:56)
--- NOTE | 2018-10-14 01:25 | HP ---
CHIEF COMPLAINT: Change in mental status, possible stroke. HISTORY OF PRESENT ILLNESS: Ms. Reyes is an 88-year-old female with past medical history of hypertension, hypothyroidism, and dementia, who was found to have change in mental status with slurred speech and a right-sided facial droop, and some visual disturbance according to the nursing staff. The patient was in her usual state of health until this morning when they noticed these changes. The patient was found slumped in the chair. The patient is usually alert, awake, and communicates. According to them, she did not have any fever, nausea, or vomiting. She did not complain of chest pain or shortness of breath. senior care staff felt the patient is possibly having stroke, and she was transferred to the emergency room where she was evaluated. She did not have any focal neurological deficits. She was found to have possible urosepsis with encephalopathy. The patient was given Rocephin in the ER and given IV fluid bolus as well. The patient developed fever after getting admitted to the floor with temperature of 102. PAST MEDICAL HISTORY: 1. Dementia. 2. Hypothyroidism. 3. Gastroesophageal reflux disease. 4. Hyperlipidemia. 5. Bacteremia. 6. Recent admission with febrile. 7. History of atrial fibrillation. 8. Chronic kidney disease, stage 2. 9. Duodenitis as well. PAST SURGICAL HISTORY: 1. Status post cataract extraction. 2. Status post hysterectomy. 3. Status post pacemaker placement. ALLERGIES: NKDA. CURRENT MEDICATIONS: The patient is on; 1. Tylenol p.r.n. 2. Eliquis one tablet b.i.d. 3. Colace daily. 4. Aricept 10 mg daily. 5. Cymbalta 20 mg daily. 6. Gabapentin 600 daily. 7. Levothyroxine 75 mcg daily. 8. Melatonin 5 mg at bedtime. 9. Namenda 10 mg b.i.d. 10. Protonix 40 mg daily. 11. MiraLAX 17 g daily. 12. Simvastatin 10 mg daily. 13. Trazodone 100 mg at bedtime. 14. Systane eye drops b.i.d. one drop. 15. Diclofenac sodium topical b.i.d. p.r.n. FAMILY HISTORY: Nothing contributory. SOCIAL HISTORY: The patient is resident of [facility]. REVIEW OF SYSTEMS: Unable to obtain because of mental status of the patient. The patient is awake, not very alert, not communicating, not answering questions. PHYSICAL EXAMINATION: GENERAL: The patient is awake, not very alert. VITAL SIGNS: Temperature 102, pulse 74, respirations 20, and blood pressure 136/76. HEENT: Head is normocephalic and atraumatic. Pupils are equal and reactive. Nasopharynx is pale and dry. HEART: S1 and S2 regular. SKIN: Turgor decreased. NECK: Supple. No JVD. LUNGS: Bilateral air entry. No rales. No rhonchi. ABDOMEN: Soft. No distention. No tenderness. Normal bowel sounds present. RECTAL: Deferred. CENTRAL NERVOUS SYSTEM: The patient is awake, not very alert. Motor system, power 4/5 in all extremities. Deep tendon reflex, 2+ bilaterally. Plantars downgoing. Sensory intact. LABORATORY DATA: CBC shows WBC 8.6, hemoglobin 12, hematocrit 38, and platelets 200. Prothrombin time 14, INR 1.1. Metabolic panel; sodium 138, potassium 4.5, chloride 102, CO2 of 28, BUN 12, creatinine 0.9, and glucose 109. Troponin I less than 0.010. Urinalysis revealed leukocyte esterase is large, wbc greater than 50, bacteria 2+. IMAGING STUDIES: Chest x-ray negative. CT of the [place]; no evidence of stenosis or occlusion. CT scan of the brain, no evidence of acute findings. EKG was not done. ASSESSMENT: 1. Possible urosepsis. 2. Metabolic encephalopathy secondary to possible urosepsis. 3. Acute kidney injury. 4. Hypothyroidism. 5. Dementia. 6. Status post pacemaker. PLAN: 1. Vital signs q.4 hours. 2. Activity as tolerated. 3. Allergies: NKDA. 4. IV fluids, D5 half at 80 mL/hour. 5. Rocephin 2 g IV piggyback daily. 6. Diet, regular. 7. Continue long term medications. 8. Hold trazodone, Namenda, and Aricept. 9. Cultures. 10. Tylenol p.r.n. Job ID: [id number]
[2018-10-14 05:18] LABS: #Lymphocytes 0.8 thou/uL (1.20-3.40); #Monocytes 0.7 thou/uL (0.11-0.59); #Neutrophils 4.7 thou/uL (1.40-6.50); %Basophils 0.3 % (0.0-1.0); %Eosinophils 0.4 % (0.0-10.0); %Lymphocytes 12.7 % (21.0-51.0); %Monocytes 10.9 % (0.0-10.0); %Neutrophils 75.7 % (42.0-75.0); Hemoglobin 11.3 g/dL (12.0-16.0); Mean Corpuscular HGB CONC 32.1 g/dL (32.0-36.0); Mean Corpuscular Hemoglobin 29.7 pg (27.0-31.0); Mean Corpuscular Volume 92.4 fL (78.0-98.0); Mean Platelet Volume 8.7 fL (7.4-10.4); Platelet Count 172 thou/uL (130-400); RBC Distribution Width 13.3 % (11.5-14.5); Red Blood Cell (RBC) Count 3.79 mill/uL (4.20-5.40); White Blood Cell (WBC) Count 6.2 thou/uL (4.8-10.8)
[2018-10-14 05:35] LABS: Anion Gap 10 mmol/L (10-20); BUN (Urea Nitrogen) 14 mg/dL (9.8-20.1); Calc. Creatinine Clearance 45 mL/min (70-130); Calcium 8.6 mg/dL (7.8-10.44); Carbon Dioxide 31 mmol/L (23-31); Chloride 102 mmol/L (98-107); Estimated GFR-MDRD 51; Glucose 89 mg/dL (83-110); Potassium 3.8 mmol/L (3.5-5.1); Sodium 139 mmol/L (136-145)
[2018-10-14 05:56] LABS: Free T4 (Free Thyroxine) 0.97 ng/dL (0.70-1.48); Thyroid Stimulating Hormone 0.4854 uIU/mL (0.35-4.94)
[2018-10-14] MEDS: Levothyroxine Sodium 75 MCG TAB PO SCH (06:17)
[2018-10-14] MEDS: Simvastatin 5 MG TAB PO SCH (07:45)
[2018-10-14] MEDS: Gabapentin 300 MG CAP PO SCH (07:46)
[2018-10-14] MEDS: Polyethylene Glycol 3350 17 GM Packet PO SCH (07:46)
[2018-10-14] MEDS: Docusate 100 MG CAP PO SCH (07:46)
[2018-10-14] MEDS: cefTRIAXone\\ROCEPHIN 2 GM in Sodium Chloride 0.9% 100 ML IVPB SCH (07:46)
[2018-10-14] MEDS: Apixaban 5 MG TAB PO SCH ×2 (07:46→20:07)
[2018-10-14] MEDS: Polyethylene Glycol OPTH DROP 15 ML BOT EA EYE SCH ×2 (07:50→20:08)
[2018-10-14] MEDS: Sodium Chloride 0.9% 1,000 ML IV SCH ×2 (08:35→20:06)
[2018-10-15] MEDS: Levothyroxine Sodium 75 MCG TAB PO SCH (05:22)
[2018-10-15 06:14] LABS: Anion Gap 9 mmol/L (10-20); BUN (Urea Nitrogen) 10 mg/dL (9.8-20.1); Calc. Creatinine Clearance 59 mL/min (70-130); Calcium 8.4 mg/dL (7.8-10.44); Carbon Dioxide 26 mmol/L (23-31); Chloride 109 mmol/L (98-107); Estimated GFR-MDRD 69; Glucose 92 mg/dL (83-110); Potassium 3.8 mmol/L (3.5-5.1); Sodium 140 mmol/L (136-145)
[2018-10-15] MEDS: Gabapentin 300 MG CAP PO SCH (07:53)
[2018-10-15] MEDS: Apixaban 5 MG TAB PO SCH ×2 (07:54→20:16)
[2018-10-15] MEDS: cefTRIAXone\\ROCEPHIN 2 GM in Sodium Chloride 0.9% 100 ML IVPB SCH (07:54)
[2018-10-15] MEDS: Simvastatin 5 MG TAB PO SCH (07:54)
[2018-10-15] MEDS: Docusate 100 MG CAP PO SCH (07:54)
[2018-10-15] MEDS: Polyethylene Glycol 3350 17 GM Packet PO SCH ×2 (07:55→08:06)
[2018-10-15] MEDS: Polyethylene Glycol OPTH DROP 15 ML BOT EA EYE SCH ×2 (07:59→20:16)
[2018-10-15] MEDS: Sodium Chloride 0.9% 1,000 ML IV SCH ×2 (08:00→20:17)
[2018-10-15] MEDS: Melatonin 3 MG TAB PO SCH (20:16)
[2018-10-16] MEDS: Levothyroxine Sodium 75 MCG TAB PO SCH (06:16)
[2018-10-16] MEDS: cefTRIAXone\\ROCEPHIN 2 GM in Sodium Chloride 0.9% 100 ML IVPB SCH (07:34)
[2018-10-16] MEDS: Simvastatin 5 MG TAB PO SCH (07:35)
[2018-10-16] MEDS: Gabapentin 300 MG CAP PO SCH (07:35)
[2018-10-16] MEDS: Docusate 100 MG CAP PO SCH (07:35)
[2018-10-16] MEDS: Donepezil HCl 10 MG TAB PO SCH (07:35)
[2018-10-16] MEDS: Apixaban 5 MG TAB PO SCH ×2 (07:35→20:15)
[2018-10-16] MEDS: Polyethylene Glycol 3350 17 GM Packet PO SCH (07:36)
[2018-10-16] MEDS: Polyethylene Glycol OPTH DROP 15 ML BOT EA EYE SCH ×2 (07:36→20:16)
[2018-10-16] MEDS: Melatonin 3 MG TAB PO SCH (20:15)
[2018-10-17] MEDS: Levothyroxine Sodium 75 MCG TAB PO SCH (06:04)
[2018-10-17 06:58] LABS: #Eosinphils 0.3 thou/uL (0.0-0.7); #Lymphocytes 1.4 thou/uL (1.20-3.40); #Monocytes 0.6 thou/uL (0.11-0.59); #Neutrophils 3.7 thou/uL (1.40-6.50); %Basophils 0.3 % (0.0-1.0); %Eosinophils 5.2 % (0.0-10.0); %Lymphocytes 22.9 % (21.0-51.0); %Monocytes 10.7 % (0.0-10.0); Hemoglobin 11.3 g/dL (12.0-16.0); Mean Corpuscular HGB CONC 33.3 g/dL (32.0-36.0); Mean Corpuscular Hemoglobin 30.2 pg (27.0-31.0); Mean Corpuscular Volume 90.7 fL (78.0-98.0); Platelet Count 199 thou/uL (130-400); RBC Distribution Width 12.6 % (11.5-14.5); Red Blood Cell (RBC) Count 3.74 mill/uL (4.20-5.40)
[2018-10-17 07:21] LABS: Anion Gap 10 mmol/L (10-20); BUN (Urea Nitrogen) 7 mg/dL (9.8-20.1); Calc. Creatinine Clearance 70 mL/min (70-130); Calcium 8.8 mg/dL (7.8-10.44); Carbon Dioxide 27 mmol/L (23-31); Chloride 106 mmol/L (98-107); Estimated GFR-MDRD 85; Glucose 88 mg/dL (83-110); Potassium 3.8 mmol/L (3.5-5.1); Sodium 139 mmol/L (136-145)
[2018-10-17] MEDS: cefTRIAXone\\ROCEPHIN 2 GM in Sodium Chloride 0.9% 100 ML IVPB SCH (08:14)
[2018-10-17] MEDS: Docusate 100 MG CAP PO SCH (08:15)
[2018-10-17] MEDS: Donepezil HCl 10 MG TAB PO SCH (08:15)
[2018-10-17] MEDS: Simvastatin 5 MG TAB PO SCH (08:15)
[2018-10-17] MEDS: Gabapentin 300 MG CAP PO SCH (08:15)
[2018-10-17] MEDS: Apixaban 5 MG TAB PO SCH ×2 (08:15→19:52)
[2018-10-17] MEDS: Polyethylene Glycol OPTH DROP 15 ML BOT EA EYE SCH ×2 (08:16→19:51)
[2018-10-17] MEDS: Polyethylene Glycol 3350 17 GM Packet PO SCH (08:16)
--- NOTE | 2018-10-17 13:29 | EKG ---
Test Reason : Blood Pressure : / mmHG Vent. Rate : 095 BPM Atrial Rate : 078 BPM P-R Int : 000 ms QRS Dur : 136 ms QT Int : 370 ms P-R-T Axes : 000 -38 -08 degrees QTc Int : 464 ms Atrial fibrillation Left axis deviation Right bundle branch block Abnormal ECG When compared with ECG of 11-SEP-2018 22:32, Nonspecific T wave abnormality now evident in Lateral leads Confirmed by DR. Esteban LIM ([id number]) on 10/17/2018 1:28:36 PM Referred By: GARY Confirmed By:DR. Esteban LIM
[2018-10-17] MEDS: Melatonin 3 MG TAB PO SCH (19:51)
[2018-10-18] MEDS: Levothyroxine Sodium 75 MCG TAB PO SCH (05:49)
[2018-10-18] MEDS: cefTRIAXone\\ROCEPHIN 2 GM in Sodium Chloride 0.9% 100 ML IVPB SCH (09:08)
[2018-10-18] MEDS: Simvastatin 5 MG TAB PO SCH (09:09)
[2018-10-18] MEDS: Donepezil HCl 10 MG TAB PO SCH (09:11)
[2018-10-18] MEDS: Apixaban 5 MG TAB PO SCH ×2 (09:11→19:13)
[2018-10-18] MEDS: Gabapentin 300 MG CAP PO SCH (09:11)
[2018-10-18] MEDS: Polyethylene Glycol 3350 17 GM Packet PO SCH (09:11)
[2018-10-18] MEDS: Polyethylene Glycol OPTH DROP 15 ML BOT EA EYE SCH ×2 (09:12→19:13)
[2018-10-18] MEDS: Docusate 100 MG CAP PO SCH (09:12)
[2018-10-18] MEDS: Melatonin 3 MG TAB PO SCH (19:13)
[2018-10-19] MEDS: Levothyroxine Sodium 75 MCG TAB PO SCH (05:37)
[2018-10-19] MEDS ORDERED: Ciprofloxacin 500 MG TAB PO SCH (06:00)
[2018-10-19 07:23] VITALS: BP 148/76; TEMP 98.1
[2018-10-19] MEDS: Gabapentin 300 MG CAP PO SCH (08:41)
[2018-10-19] MEDS: Simvastatin 5 MG TAB PO SCH (08:41)
[2018-10-19] MEDS: Apixaban 5 MG TAB PO SCH (08:41)
[2018-10-19] MEDS: Docusate 100 MG CAP PO SCH (08:41)
[2018-10-19] MEDS: Donepezil HCl 10 MG TAB PO SCH (08:41)
[2018-10-19] MEDS: Polyethylene Glycol OPTH DROP 15 ML BOT EA EYE SCH (08:42)
[2018-10-19] MEDS: Polyethylene Glycol 3350 17 GM Packet PO SCH (08:42)
--- NOTE | 2018-10-20 13:52 | DIS ---
DATE OF ADMISSION: 10/13/2018 DATE OF DISCHARGE: 10/19/2018 ADMITTING DIAGNOSES: 1. Possible urosepsis. 2. Metabolic encephalopathy secondary to #1, acute kidney injury. 3. Hypothyroidism. 4. Dementia. 5. Status post pacemaker. FINAL DIAGNOSES: 1. Uti.. 2. Acute metabolic encephalopathy, improved. 3. Dementia. 4. Hypothyroidism. BRIEF SUMMARY OF HOSPITAL COURSE: Ms. Reyes is an 88-year-old female, admitted because of change in mental status. The patient has been lethargic and not eating well. Initially, the patient was thought to have CVA. The patient had acute kidney injury and urinary tract infection. She was started on IV antibiotics with Rocephin and IV fluids. Her kidney function improved, BUN which was 14, came down to 7. The patient became more alert and awake next day. Her urine culture showed Escherichia coli sensitive to Rocephin and cipro. He tolerated diet very well. In view of improvement, the patient is being discharged back to longterm. PHYSICAL EXAMINATION: VITAL SIGNS: Stable. LUNGS: Clear. ABDOMEN: Soft, nontender. Bowel sounds present. DISCHARGE MEDICATIONS: Include; 1. Namenda 10 mg b.i.d. 2. Levothyroxine 75 mcg daily. 3. Simvastatin 10 mg daily. 4. Protonix 40 mg daily. 5. Gabapentin 600 daily. 6. Aricept 10 mg daily. 7. Tylenol p.r.n. 8. Eliquis 5 mg b.i.d. 9. MiraLax 17 g daily. 10. Colace 100 mg daily. 11. Cymbalta 60 mg daily. 12. Systane eye drops b.i.d. 13. Cipro 500 b.i.d. for 1 week. 14. Melatonin 5 mg q.h.s. The patient will be followed up in longterm. Job ID: [id number] MTDD
--- NOTE | 2018-10-22 04:09 | PQF ---
[employer] Inventory Management Specialist Crystal Reports Winform Viewer ALENA NJ VENKAT R MD [id number] [id number] CLINICAL DOCUMENTATION CLARIFICATION FORM: POST DISCHARGE Addendum to original discharge summary date: ____ Late entry note date: __ DATE: 10/22/18 ATTN: Darío Perez Please exercise your independent, professional judgment in responding to the clarification form. Clinical indicators are provided on the bottom of this form for your review Can you please further clarify the diagnosis of Urosepsis during this encounter? Please check appropriate box(es): [ ] Sepsis due to: (Pna, UTI, gangrenous gall bladder, etc.) [ ] SIRS due to non-infectious process (please specify etiology) [ ] with organ dysfunction [ ] without organ dysfunction [ ] Severe sepsis with acute organ dysfunction of: (Examples: respiratory failure, encephalopathy, acute kidney failure, other) [ ] Septic Shock [ y] Localized infection without sepsis [ ] Other diagnosis please specify [ ] Unable to determine For continuity of documentation, please document condition throughout progress notes and discharge summary. Thank You. CLINICAL INDICATORS - SIGNS / SYMPTOMS / LABS ED Report 10/13 pg.4- Diagnosis Primary: UTI, additional encephalopathy H and P pg.1 10/13 - She was found to have possible urosepsis with encephalopathy. The patient was given Rocephinin the Erand given IV fluid bolus as well. The patient developed fever after getting admitted to the floor with temperature of 102. H and P pg.2 10/13- Vital Signs: Temperature 102, pulse: 74, respiration: 20, and BP 136/76 H and P pg.2-3 10/13- Urinalysis revealed leukocyte esterase is large, wbc greater than 50, bacteria 2+ H and P pg.3 10/13- Possible urosepsis H and P pg.3 10/13- Metabolic encephalopathy secondary to possible urosepsis H and P pg.3 10/13- Acute kidney injury Microbiology 10/13 - Urine culture-final Escherichia coli Progress notes 10/19- UTI RISK FACTORS: UTI- Progress notes (Scanned)- 10/19 Metabolic encephalopathy- Progress notes (Scanned)- 10/19 Acute kidney injury-H and P pg.3 10/13 TREATMENTS: IV fluids- JUL 28 Urine Culture- Microbiology 10/13 Ceftriaxone/Rocephin 1gm IV- JUL 28 Ciprofloxacin 500mg PO 10/19 (This form is maintained as a part of the permanent medical record) 2014 [employer], [employer]. All Rights Reserved Chung [email or web address] [not provided] MTDD
== END 2018-10-19 16:26 | DRG 682 ==
LOC: ERS 09:59 → T4-A 12:03
PROVIDERS: ADMIT Internal Medicine; ATTEND Internal Medicine
DX: N17.9 Acute kidney failure, unspecified (principal); G93.41 Metabolic encephalopathy; N39.0 Urinary tract infection, site not specified; K21.9 Gastro-esophageal reflux disease without esophagitis; F03.90 Unspecified dementia, unspecified severity, without behavioral disturbance, psychotic disturbance, mood disturbance, and anxiety; I12.9 Hypertensive chronic kidney disease with stage 1 through stage 4 chronic kidney disease, or unspecified chronic kidney disease; I48.91 Unspecified atrial fibrillation; N18.2 Chronic kidney disease, stage 2 (mild); E03.9 Hypothyroidism, unspecified; E78.00 Pure hypercholesterolemia, unspecified; Z98.49 Cataract extraction status, unspecified eye; Z95.0 Presence of cardiac pacemaker; Z90.710 Acquired absence of both cervix and uterus; Z79.899 Other long term (current) drug therapy; Z79.02 Long term (current) use of antithrombotics/antiplatelets
CPT/HCPCS: 36415; 36416; 51701; 70450; 70496; 70498; 71045; 80048; 80053; 81003; 81015; 82550; 83605; 83880; 84439; 84443; 84484; 85025; 85610; 85730; 87040; 87077; 87086; 87186; 93005; 93010; 94760; 96361; 96365; A4353; J0696; J3490; Q9966

== ENCOUNTER 2019-05-05 13:26 | Emergency (ER) | payer MEDICARE, MEDICAID | END 2019-05-05 16:35 | disposition home or self-care (01) | LOC: ERS 13:26 | DX: K62.3 Rectal prolapse (principal); F03.90 Unspecified dementia, unspecified severity, without behavioral disturbance, psychotic disturbance, mood disturbance, and anxiety; E78.5 Hyperlipidemia, unspecified; E78.00 Pure hypercholesterolemia, unspecified; E03.9 Hypothyroidism, unspecified; N18.2 Chronic kidney disease, stage 2 (mild); Z79.899 Other long term (current) drug therapy | CPT/HCPCS: 99283 ==